=== PATIENT | male | born 1960 | race Caucasian/White ===

== ENCOUNTER 2018-06-08 16:09 | Inpatient (IN) ==
[2018-06-08 16:33] LABS: BASOPHILS # (AUTO) 0.1 X10^3/uL (0.0-0.1); BASOPHILS % (AUTO) 0.5 % (0.2-1.0); EOSINOPHILS % (AUTO) 0.1 % (0.9-2.9); HEMATOCRIT 47.9 % (42.0-54.0); HEMOGLOBIN 15.8 g/dL (13.5-18.0); LYMPHOCYTES # (AUTO) 1.7 X10^3/uL (1.3-2.9); LYMPHOCYTES % (AUTO) 7.7 % (21.0-51.0); MEAN CORPUSCULAR HEMOGLOBIN 28.9 pg (27.0-34.0); MEAN CORPUSCULAR VOLUME 87.5 fL (80.0-100.0); MEAN PLATELET VOLUME 8.6 fL (7.4-11.0); MONOCYTES # (AUTO) 1.4 x10^3/uL (0.3-0.8); MONOCYTES % (AUTO) 6.4 % (0.0-13.0); NEUTROPHILS # (AUTO) 18.7 x10^3/uL (2.2-4.8); NEUTROPHILS % (AUTO) 85.3 % (42.0-75.0); PLATELET COUNT 281 X10^3/uL (150.0-450.0); RED BLOOD COUNT 5.47 X10^6/uL (4.7-6.0); RED CELL DISTRIBUTION WIDTH 15.9 % (11.6-16.5); WHITE BLOOD COUNT 21.9 X10^3/uL (3.6-10.0)
[2018-06-08 16:44] LABS: PLATELET MORPHOLOGY COMMENT NORMAL (NORMAL)
[2018-06-08 16:50] LABS: ALANINE AMINOTRANSFERASE 19 Units/L (12-78); ALBUMIN 2.8 g/dL (3.4-5.0); ALKALINE PHOSPHATASE 85 Units/L (46-116); ASPARTATE AMINO TRANSFERASE 15 Units/L (15-37); BLOOD UREA NITROGEN 17 mg/dL (7-18); CALCIUM 8.7 mg/dL (8.5-10.1); CARBON DIOXIDE 38.7 mmol/L (21-32); CHLORIDE 95 mmol/L (98-107); COR CA(FOR HYPOALB) 9.7 mg/dL (8.5-10.1); COR NA(FOR HYPERGLY) 140 mmol/L (136-145); CREATININE 0.64 mg/dL (0.70-1.30); SODIUM 139 mmol/L (136-145); eGFR NON BLACK RACES > 60 (>60)
[2018-06-08 16:54] LABS: LACTIC ACID 1.6 mmol/L (0.4-2.0)
[2018-06-08] MEDS ORDERED: NS 1000 ML 1,000 ML IV SCH ×2 (17:00→21:00)
--- NOTE | 2018-06-08 17:26 | RAD ---
Portable chest Clinical indication: Low O2 saturation Comparison: 05/14/2018. Findings: Interstitial infiltrates are observed within the bilateral lung bases associated with coarsened interstitial lung markings and peribronchial thickening. The upper lung feliz remain clear. The lungs are hyperexpanded consistent with chronic emphysematous change. The heart size and mediastinal contours are normal. There is a chronic radiopaque foreign body projecting over the left lower lung field Impression: Bibasilar interstitial bronchopneumonia pattern. Radiographic follow-up recommended Emphysema. Reported By:
[2018-06-08] MEDS ORDERED: NS 1/2 1000 ML IV 1,000 ML IV ONE (18:15)
[2018-06-08] MEDS: ROCEPHIN VIAL 1 GRAM IVP SCH (18:26)
[2018-06-08] MEDS: NS 1/2 1000 ML IV 1,000 ML IV SCH (18:26)
--- NOTE | 2018-06-08 18:52 | DR.SOBA ---
HPI Time Seen Time Seen by Provider: 06/08/18 16:52 Primary Care Physician Primary Care Physician: nfd Complaints Chief Complaint Doctors Comments: Patient presents with daughter who states that patient has been weak for the past few months; although he lost his and this might account for this, he has shortness of breath for 3-4 days. He has dec reased energy. Chief Complaint:: family stated he has not eaten in 4 days and has been short of breath for the the last 2 days. family also stated he has been weak for the past several months. Source History Provided: Patient Mode of Arrival Mode of Arrival: Wheelchair Timing Onset of Chief Complaint: 06/05/18 PMH PMH Past Medical History: Yes Past Medical History: CHF, COPD, Coronary Artery Disease, Depression, GERD and G out Past Surgical History: Yes Surgical History: Ortho Surgery Family History History of Family Medical Conditions: No Social History Does patient currently use any type of tobacco product: Yes Have you used tobacco products in the last 12 months: Yes Type of Tobacco Use: Cigarettes How many years tobacco product used: 40 Does any household member use tobacco: No Alcohol Use: None Do you use any recreational Drugs:: No Lives With: Family Lives Where: Home infectious screening In the last 2 months have you had wt loss of >10#?: NO Have you had fever, night sweats or hemotysis?: No Have you traveled outside the country in the last 6 months?: No Isolation: Standard PE Vital Signs Vitals: Temperature 98.5 F Pulse Rate [Right Radial] 96 Pulse Rate 83 Respiratory Rate 22 Blood Pressure [Left Arm] 103/64 Blood Pressure [Right Arm] 114/70 Blood Pressure 114/69 O2 Sat by Pulse Oximetry 93 General Limitations: No Limitations General Appearance: Alert and In No Apparent Distress; negative In Distress Head Head Exam: Normal Inspection, Atraumatic and Normocephalic Eyes Eye exam: Normal Appearance, PERRL and EOMI ENT ENT Exam: Normal Exam and Normal Oropharynx Neck Neck Exam: Normal Inspection, Full ROM and Trachea Midline Chest Chest Inspection: Normal Inspection and Symmetric Chest Wall Rise Respiratory Respiratory Exam: Normal Lung Sounds Bilat and Accessory Muscle Use Respiratory Exam: Bilateral: Clear to Auscultation Cardiovascular Cardiovascular Exam: Regular Rate and Normal Rhythm Abdominal Exam Abdominal Exam: Normal Inspection, Normal Bowel Sounds and Soft Back Back Exam: Normal Inspection Neurologic Neurological Exam: Alert, Oriented X3 and CN II-XII Intact Psychiatric Psychiatric Exam: Normal Affect and Normal Mood Skin Skin Exam: Warm, Dry, Intact, Normal Color and Diaphoresis COURSE Consultation Called: 20:00 Consultation Comments: Per charge nurse ROR Labs Reviewed Laboratory Results Reviewed?: Yes Result Diagrams: 06/08/18 16:15 06/08/18 16:15 Laboratory: 06/08/18 18:51 Sputum - Expectorated Sputum - Final WBC 21.9 X10^3/uL (3.6-10.0) H 06/08/18 16:15 RBC 5.47 X10^6/uL (4.7-6.0) 06/08/18 16:15 Hgb 15.8 g/dL (13.5-18.0) 06/08/18 16:15 Hct 47.9 % (42.0-54.0) 06/08/18 16:15 MCV 87.5 fL (80.0-100.0) 06/08/18 16:15 MCH 28.9 pg (27.0-34.0) 06/08/18 16:15 MCHC 33.0 g/dL (33.0-35.0) 06/08/18 16:15 RDW 15.9 % (11.6-16.5) 06/08/18 16:15 Plt Count 281 X10^3/uL (150.0-450.0) 06/08/18 16:15 Plt Count Comment Adequate (ADEQUATE) 06/08/18 16:15 MPV 8.6 fL (7.4-11.0) 06/08/18 16:15 Neut % (Auto) 85.3 % (42.0-75.0) H 06/08/18 16:15 Lymph % (Auto) 7.7 % (21.0-51.0) L 06/08/18 16:15 [place] % (Auto) 6.4 % (0.0-13.0) 06/08/18 16:15 Eos % (Auto) 0.1 % (0.9-2.9) L 06/08/18 16:15 Baso % (Auto) 0.5 % (0.2-1.0) 06/08/18 16:15 Neut # (Auto) 18.7 x10^3/uL (2.2-4.8) H 06/08/18 16:15 Lymph # (Auto) 1.7 X10^3/uL (1.3-2.9) 06/08/18 16:15 [place] # (Auto) 1.4 x10^3/uL (0.3-0.8) H 06/08/18 16:15 Eos # (Auto) 0.0 x10^3/uL (0.0-0.2) 06/08/18 16:15 Baso # (Auto) 0.1 X10^3/uL (0.0-0.1) 06/08/18 16:15 Absolute Nucleated RBC 0.0 /100WBC 06/08/18 16:15 Total Counted 100 06/08/18 16:15 Neutrophils % (Manual) 91 % (39-76) H 06/08/18 16:15 Lymphocytes % (Manual) 6 % (13-43) L 06/08/18 16:15 Monocytes % (Manual) 3 % (4-9) L 06/08/18 16:15 Plt Morphology Comment Normal (NORMAL) 06/08/18 16:15 RBC Morphology Normal (NORMAL) 06/08/18 16:15 D-Dimer < 100 ng/mL (0-400) 06/08/18 16:15 Sample Site Rr 06/08/18 18:50 ABG pH 7.450 (7.35-7.45) 06/08/18 18:50 ABG pCO2 66.0 mmHg (35.0-45.0) H* 06/08/18 18:50 ABG pO2 45.0 mmHg (80.0-100.0) L* 06/08/18 18:50 ABG HCO3 45.9 mmol/L (22-26) H* 06/08/18 18:50 ABG O2 Saturation 83.0 % (90-100) L* 06/08/18 18:50 ABG Base Excess 18.5 mmol/L (-2.0-2.0) H 06/08/18 18:50 Alexei Test Pos 06/08/18 18:50 A-a Gradient 101.0 mmHg 06/08/18 18:50 FiO2 32.0 06/08/18 18:50 Blood Gas Comments Pt [facility] 06/08/18 18:50 Sodium 139 mmol/L (136-145) 06/08/18 16:15 Corrected Sodium 140 mmol/L (136-145) 06/08/18 16:15 Potassium 3.4 mmol/L (3.5-5.1) L 06/08/18 16:15 Chloride 95 mmol/L (98-107) L 06/08/18 16:15 Carbon Dioxide 38.7 mmol/L (21-32) H 06/08/18 16:15 BUN 17 mg/dL (7-18) 06/08/18 16:15 Creatinine 0.64 mg/dL (0.70-1.30) L 06/08/18 16:15 Est GFR (MDRD) Af Amer > 60 (>60) 06/08/18 16:15 Est GFR (MDRD) Non-Af > 60 (>60) 06/08/18 16:15 Glucose 139 mg/dL (65-99) H 06/08/18 16:15 Lactic Acid 1.6 mmol/L (0.4-2.0) 06/08/18 16:15 Calcium 8.7 mg/dL (8.5-10.1) 06/08/18 16:15 Corrected Calcium 9.7 mg/dL (8.5-10.1) 06/08/18 16:15 Total Bilirubin 0.80 mg/dL (0.2-1.0) 06/08/18 16:15 AST 15 Units/L (15-37) 06/08/18 16:15 ALT 19 Units/L (12-78) 06/08/18 16:15 Alkaline Phosphatase 85 Units/L (46-116) 06/08/18 16:15 Total Protein 7.0 g/dL (6.4-8.2) 06/08/18 16:15 Albumin 2.8 g/dL (3.4-5.0) L 06/08/18 16:15 Globulin 4.2 g/dL (2.5-4.5) 06/08/18 16:15 Albumin/Globulin Ratio 0.7 Ratio (1.1-2.1) L 06/08/18 16:15 XRAY XRAY Interpreted by: Radiologist XRAY Findings: Bibasilar interstitial bronchopneumonia pattern. Diagnosis Discharge Problem: Pneumonia Qualifiers: Pneumonia type: due to unspecified organism Laterality: bilateral Lung location: lower lobe of lung Qualified Code(s): J18.1 - Lobar pneumonia, unspecified organism ADDITIONAL NOTES Additional Notes Additional Notes: Patient admitted
[2018-06-08] MEDS ORDERED: LEVAQUIN PREMIX IV 750 MG 750 MG/150 ML BAG IV SCH (19:00)
[2018-06-08 19:11] LABS: ABG BASE EXCESS 18.5 mmol/L (-2.0-2.0)
[2018-06-08 19:12] LABS: ABG HCO3 45.9 mmol/L (22-26)
[2018-06-08 19:13] LABS: ABG ALLEN TEST POS
[2018-06-08] MEDS ORDERED: MILK OF MAGNESIA PO PRN (21:05)
[2018-06-08] MEDS ORDERED: PHENERGAN TAB 25 MG PO PRN (21:05)
[2018-06-08] MEDS ORDERED: ZOFRAN TAB 4 MG PO PRN (21:05)
[2018-06-08] MEDS ORDERED: PATIENT'S HOME MEDICATION (Budesonide-Formoterol 2 PUFF) IN SCH (21:05)
[2018-06-08] MEDS ORDERED: PROVENTIL NEB TX 0.083% 2.5MG/ 3ML IN PRN (21:05)
[2018-06-08] MEDS ORDERED: ZOFRAN INJ 4 MG VIAL IVP PRN (22:34)
[2018-06-08 22:38] VITALS: BMI 26.4
[2018-06-08] MEDS ORDERED: ZOFRAN INJ 4 MG VIAL ONE (22:40)
[2018-06-08] MEDS: BUSPAR PO SCH (22:43)
[2018-06-08] MEDS: NEURONTIN CAP 400 MG PO SCH (22:43)
[2018-06-08] MEDS: COREG TAB 25 MG PO SCH (22:43)
[2018-06-08] MEDS: ZANAFLEX PO SCH (22:44)
[2018-06-08] MEDS: LASIX PO SCH (22:44)
[2018-06-09] MEDS: DUONEB 0.5 MG/3 MG NEB SCH ×6 (00:54→21:04)
[2018-06-09] MEDS ORDERED: ULTRAM ONE (01:21)
[2018-06-09] MEDS: ULTRAM PO PRN (01:30)
[2018-06-09 05:23] LABS: BILIRUBIN,URINE NEGATIVE (NEGATIVE); BLOOD/HEMOGLOBIN,URINE NEGATIVE (NEGATIVE); GLUCOSE, URINE NEGATIVE (NEGATIVE); KETONES,URINE NEGATIVE (NEGATIVE); LEUKOCYTE ESTERASE ,URINE 1+ (NEGATIVE); NITRITES,URINE NEGATIVE (NEGATIVE); PROTEIN,URINE NEGATIVE (NEGATIVE); UROBILINOGEN,URINE 1+ (NORMAL)
[2018-06-09 05:28] LABS: BASOPHILS # (AUTO) 0.1 X10^3/uL (0.0-0.1); BASOPHILS % (AUTO) 0.5 % (0.2-1.0); EOSINOPHILS # (AUTO) 0.1 x10^3/uL (0.0-0.2); EOSINOPHILS % (AUTO) 0.6 % (0.9-2.9); HEMATOCRIT 39.8 % (42.0-54.0); LYMPHOCYTES # (AUTO) 2.4 X10^3/uL (1.3-2.9); LYMPHOCYTES % (AUTO) 15.5 % (21.0-51.0); MEAN CORPUSCULAR HEMOGLOBIN 29.2 pg (27.0-34.0); MEAN CORPUSCULAR HGB CONC 33.7 g/dL (33.0-35.0); MEAN CORPUSCULAR VOLUME 86.6 fL (80.0-100.0); MEAN PLATELET VOLUME 9.2 fL (7.4-11.0); MONOCYTES # (AUTO) 1.7 x10^3/uL (0.3-0.8); MONOCYTES % (AUTO) 11.1 % (0.0-13.0); NEUTROPHILS # (AUTO) 11.2 x10^3/uL (2.2-4.8); NEUTROPHILS % (AUTO) 72.3 % (42.0-75.0); PLATELET COUNT 216 X10^3/uL (150.0-450.0); RED CELL DISTRIBUTION WIDTH 15.2 % (11.6-16.5); WHITE BLOOD COUNT 15.4 X10^3/uL (3.6-10.0)
[2018-06-09 05:33] LABS: HEMOGLOBIN 13.4 g/dL (13.5-18.0)
[2018-06-09 05:39] LABS: ALANINE AMINOTRANSFERASE 12 Units/L (12-78); ALBUMIN 2.3 g/dL (3.4-5.0); ALKALINE PHOSPHATASE 71 Units/L (46-116); ASPARTATE AMINO TRANSFERASE 13 Units/L (15-37); BLOOD UREA NITROGEN 14 mg/dL (7-18); CARBON DIOXIDE 37.8 mmol/L (21-32); CHLORIDE 96 mmol/L (98-107); COR CA(FOR HYPOALB) 9.4 mg/dL (8.5-10.1); CREATININE 0.52 mg/dL (0.70-1.30); SODIUM 137 mmol/L (136-145); TOTAL PROTEIN 5.9 g/dL (6.4-8.2); eGFR NON BLACK RACES > 60 (>60)
[2018-06-09 05:54] LABS: APPEARANCE,URINE CLEAR (CLEAR); BACTERIA,URINE TRACE /HPF (NEGATIVE); COLOR,URINE YELLOW (YELLOW); RBC,URINE NONE SEEN /HPF (NONE SEEN); SQUAMOUS EPITHELIAL CELL,UR FEW /HPF (NEGATIVE)
[2018-06-09 05:55] LABS: AMORPHOUS SEDIMENT,UR TRACE /HPF (NEGATIVE)
--- NOTE | 2018-06-09 06:43 | RAD ---
History: Emphysema and low O2 Study: AP chest Comparison: Yesterday Findings: The heart size is prominent with a tortuous aorta. There is persistent increased interstitial bronchial markings in the right lower lobe. Overall the lungs are hyperinflated. There is no obvious pleural effusion. Impression: Persistent right lower lobe pneumonitis Reported By:
[2018-06-09] MEDS: BUSPAR PO SCH ×3 (06:59→21:06)
[2018-06-09] MEDS: NEURONTIN CAP 400 MG PO SCH ×3 (06:59→21:06)
[2018-06-09] MEDS: PULMICORT NEB TX 0.5 MG NEB SCH ×2 (08:36→21:04)
[2018-06-09] MEDS ORDERED: PATIENT'S HOME MEDICATION (Oxycodone-Acetaminophen [Percocet] 1 TAB) PO SCH (09:00)
[2018-06-09] MEDS: MILK OF MAGNESIA PO SCH ×3 (10:23→21:36)
[2018-06-09] MEDS: CARDIZEM CD 180 MG PO SCH (10:24)
[2018-06-09] MEDS: COREG TAB 25 MG PO SCH ×2 (10:24→23:50)
[2018-06-09] MEDS: ZANTAC PO SCH (10:24)
[2018-06-09] MEDS: DALIRESP PO SCH (10:24)
[2018-06-09] MEDS: ZANAFLEX PO SCH ×2 (10:24→21:06)
[2018-06-09] MEDS: LASIX PO SCH ×2 (10:24→23:50)
[2018-06-09] MEDS: ROCEPHIN VIAL 1 GRAM IVP SCH (10:26)
[2018-06-09] MEDS: CYMBALTA PO SCH (10:32)
[2018-06-09] MEDS: FORTAZ or TAZICEF VIAL INJ IVP SCH ×3 (10:33→21:06)
[2018-06-09] MEDS: LANOXIN PO SCH (11:16)
[2018-06-09] MEDS: PERCOCET TAB 5/325 MG PO SCH (11:18)
[2018-06-09] MEDS ORDERED: STERILE WATER IRRIGATION IR ONE ×2 (14:22→21:36)
[2018-06-09] MEDS ORDERED: LOVENOX INJ 40 MG SYR SC SCH (16:00)
[2018-06-09] MEDS: XARELTO PO SCH (16:55)
[2018-06-09] MEDS ORDERED: POTASSIUM CHL 60 MEQ/NS 0.45% 500 ML IV PRN (19:46)
[2018-06-09] MEDS ORDERED: POTASSIUM CHL 40 MEQ/NS 0.45% 500 ML IV PRN (19:46)
[2018-06-09] MEDS ORDERED: MICRO K EXTEN CAP 10 MEQ PO PRN (19:46)
[2018-06-09] MEDS ORDERED: K-RIDER 10 MEQ/NS 100 ML 10 MEQ/100 ML BAG IV PRN (19:46)
[2018-06-09] MEDS ORDERED: KLOR-CON PO PRN (19:46)
[2018-06-09] MEDS ORDERED: POTASSIUM CHLORIDE LIQ 20 MEQ UDC PO PRN (19:46)
[2018-06-09] MEDS: LEVAQUIN PREMIX IV 750 MG 750 MG/150 ML BAG IV SCH (21:04)
[2018-06-09] MEDS: COLACE CAP 100 MG PO SCH (21:05)
[2018-06-09] MEDS: NS 1/2 1000 ML IV 1,000 ML IV SCH (21:05)
[2018-06-09] MEDS: K-DUR TAB 20 MEQ PO PRN (21:31)
[2018-06-09] MEDS: MAGNESIUM SULFATE 1 GRAM/100 mL PREMIX 1 GM/100 ML BAG IV PRN ×2 (21:36→23:49)
[2018-06-10] MEDS: DUONEB 0.5 MG/3 MG NEB SCH ×6 (01:04→20:34)
[2018-06-10 05:18] LABS: BASOPHILS # (AUTO) 0.1 X10^3/uL (0.0-0.1); BASOPHILS % (AUTO) 0.9 % (0.2-1.0); EOSINOPHILS # (AUTO) 0.2 x10^3/uL (0.0-0.2); EOSINOPHILS % (AUTO) 1.7 % (0.9-2.9); HEMATOCRIT 38.5 % (42.0-54.0); HEMOGLOBIN 12.4 g/dL (13.5-18.0); LYMPHOCYTES # (AUTO) 2.7 X10^3/uL (1.3-2.9); LYMPHOCYTES % (AUTO) 25.3 % (21.0-51.0); MEAN CORPUSCULAR HEMOGLOBIN 28.5 pg (27.0-34.0); MEAN CORPUSCULAR HGB CONC 32.3 g/dL (33.0-35.0); MEAN CORPUSCULAR VOLUME 88.3 fL (80.0-100.0); MEAN PLATELET VOLUME 9.2 fL (7.4-11.0); MONOCYTES # (AUTO) 1.1 x10^3/uL (0.3-0.8); MONOCYTES % (AUTO) 10.3 % (0.0-13.0); NEUTROPHILS # (AUTO) 6.7 x10^3/uL (2.2-4.8); NEUTROPHILS % (AUTO) 61.8 % (42.0-75.0); PLATELET COUNT 209 X10^3/uL (150.0-450.0); RED BLOOD COUNT 4.36 X10^6/uL (4.7-6.0); RED CELL DISTRIBUTION WIDTH 16.3 % (11.6-16.5); WHITE BLOOD COUNT 10.9 X10^3/uL (3.6-10.0)
[2018-06-10] MEDS: BUSPAR PO SCH ×3 (05:21→21:23)
[2018-06-10] MEDS: FORTAZ or TAZICEF VIAL INJ IVP SCH ×3 (05:21→21:23)
[2018-06-10] MEDS: NEURONTIN CAP 400 MG PO SCH ×3 (05:21→21:23)
[2018-06-10 05:31] LABS: ALANINE AMINOTRANSFERASE 12 Units/L (12-78); ALBUMIN 2.1 g/dL (3.4-5.0); ALKALINE PHOSPHATASE 76 Units/L (46-116); ASPARTATE AMINO TRANSFERASE 10 Units/L (15-37); BLOOD UREA NITROGEN 14 mg/dL (7-18); CALCIUM 7.5 mg/dL (8.5-10.1); CARBON DIOXIDE 37.9 mmol/L (21-32); CHLORIDE 98 mmol/L (98-107); COR NA(FOR HYPERGLY) 140 mmol/L (136-145); CREATININE 0.53 mg/dL (0.70-1.30); MAGNESIUM 2.1 mg/dL (1.7-2.9); SODIUM 140 mmol/L (136-145); TOTAL PROTEIN 5.5 g/dL (6.4-8.2); eGFR NON BLACK RACES > 60 (>60)
[2018-06-10] MEDS: K-DUR TAB 20 MEQ PO PRN (05:50)
[2018-06-10 06:19] LABS: ABG BASE EXCESS 18.5 mmol/L (-2.0-2.0)
[2018-06-10 06:22] LABS: ABG HCO3 45.9 mmol/L (22-26)
--- NOTE | 2018-06-10 07:39 | RAD ---
HISTORY: Follow-up pneumonia Study: Chest AP portable Comparison: 06/09/2018, 06/08/2018 Findings: The heart is within normal limits in size. The marquis are normal. The lungs are well inflated. Right basilar lung infiltrate is unchanged. The remainder of the lung feliz are clear. The bony thorax is unremarkable. IMPRESSION: Persistent right basilar lung infiltrate, unchanged Reported By:
--- NOTE | 2018-06-10 08:50 | DR.SOBA ---
HPI Time Seen Time Seen by Provider: 06/08/18 16:52 Primary Care Physician Primary Care Physician: nfd Complaints Chief Complaint:: family stated he has not eaten in 4 days and has been short of breath for the the last 2 days. family also stated he has been weak for the past several months. Source History Provided: Patient Mode of Arrival Mode of Arrival: Wheelchair Timing Onset of Chief Complaint: 06/05/18 PMH PMH Past Medical History: Yes Past Medical History: CHF, COPD, Coronary Artery Disease, Depression, GERD and Gout Past Surgical History: Yes Surgical History: Ortho Surgery Family History History of Family Medical Conditions: No Social History Does patient currently use any type of tobacco product: Yes Have you used tobacco products in the last 12 months: Yes Type of Tobacco Use: Cigarettes How many years tobacco product used: 40 Does any household member use tobacco: No Alcohol Use: None Do you use any recreational Drugs:: No Lives With: Family Lives Where: Home infectious screening In the last 2 months have you had wt loss of >10#?: NO Have you had fever, night sweats or hemotysis?: No Have you traveled outside the country in the last 6 months?: No Isolation: Standard PE Vital Signs Vitals: Temperature 98.3 F Pulse Rate [Right Radial] 71 Pulse Rate 79 Respiratory Rate 24 Blood Pressure [Left Arm] 97/55 Blood Pressure [Right Arm] 114/70 Blood Pressure 114/69 O2 Sat by Pulse Oximetry 94 ROR Labs Reviewed Result Diagrams: 06/10/18 04:45 06/10/18 04:45 Laboratory: 06/08/18 18:23 Blood Blood Culture - Preliminary 06/08/18 16:15 Blood Blood Culture - Preliminary 06/08/18 18:51 Sputum - Expectorated Sputum Sputum Culture - Preliminary 06/08/18 18:51 Sputum - Expectorated Sputum - Final WBC 10.9 X10^3/uL (3.6-10.0) H 06/10/18 04:45 RBC 4.36 X10^6/uL (4.7-6.0) L 06/10/18 04:45 Hgb 12.4 g/dL (13.5-18.0) L 06/10/18 04:45 Hct 38.5 % (42.0-54.0) L 06/10/18 04:45 MCV 88.3 fL (80.0-100.0) 06/10/18 04:45 MCH 28.5 pg (27.0-34.0) 06/10/18 04:45 MCHC 32.3 g/dL (33.0-35.0) L 06/10/18 04:45 RDW 16.3 % (11.6-16.5) 06/10/18 04:45 Plt Count 209 X10^3/uL (150.0-450.0) 06/10/18 04:45 Plt Count Comment Adequate (ADEQUATE) 06/08/18 16:15 MPV 9.2 fL (7.4-11.0) 06/10/18 04:45 Neut % (Auto) 61.8 % (42.0-75.0) 06/10/18 04:45 Lymph % (Auto) 25.3 % (21.0-51.0) 06/10/18 04:45 [place] % (Auto) 10.3 % (0.0-13.0) 06/10/18 04:45 Eos % (Auto) 1.7 % (0.9-2.9) 06/10/18 04:45 Baso % (Auto) 0.9 % (0.2-1.0) 06/10/18 04:45 Neut # (Auto) 6.7 x10^3/uL (2.2-4.8) H 06/10/18 04:45 Lymph # (Auto) 2.7 X10^3/uL (1.3-2.9) 06/10/18 04:45 [place] # (Auto) 1.1 x10^3/uL (0.3-0.8) H 06/10/18 04:45 Eos # (Auto) 0.2 x10^3/uL (0.0-0.2) 06/10/18 04:45 Baso # (Auto) 0.1 X10^3/uL (0.0-0.1) 06/10/18 04:45 Absolute Nucleated RBC 0.0 /100WBC 06/10/18 04:45 Total Counted 100 06/08/18 16:15 Neutrophils % (Manual) 91 % (39-76) H 06/08/18 16:15 Lymphocytes % (Manual) 6 % (13-43) L 06/08/18 16:15 Monocytes % (Manual) 3 % (4-9) L 06/08/18 16:15 Plt Morphology Comment Normal (NORMAL) 06/08/18 16:15 RBC Morphology Normal (NORMAL) 06/08/18 16:15 D-Dimer < 100 ng/mL (0-400) 06/08/18 16:15 Sample Site Lbr 06/10/18 06:05 ABG pH 7.450 (7.35-7.45) 06/10/18 06:05 ABG pCO2 66.0 mmHg (35.0-45.0) H* 06/10/18 06:05 ABG pO2 54.0 mmHg (80.0-100.0) L 06/10/18 06:05 ABG HCO3 45.9 mmol/L (22-26) H* 06/10/18 06:05 ABG O2 Saturation 89.0 % (90-100) L 06/10/18 06:05 ABG Base Excess 18.5 mmol/L (-2.0-2.0) H 06/10/18 06:05 Alexei Test Na 06/10/18 06:05 A-a Gradient 92.0 mmHg 06/10/18 06:05 FiO2 32.0 06/10/18 06:05 Blood Gas Comments Sukhi abg well-mtf 06/10/18 06:05 Sodium 140 mmol/L (136-145) 06/10/18 04:45 Corrected Sodium 140 mmol/L (136-145) 06/10/18 04:45 Potassium 3.3 mmol/L (3.5-5.1) L 06/10/18 04:45 Chloride 98 mmol/L (98-107) 06/10/18 04:45 Carbon Dioxide 37.9 mmol/L (21-32) H 06/10/18 04:45 BUN 14 mg/dL (7-18) 06/10/18 04:45 Creatinine 0.53 mg/dL (0.70-1.30) L 06/10/18 04:45 Est GFR (MDRD) Af Amer > 60 (>60) 06/10/18 04:45 Est GFR (MDRD) Non-Af > 60 (>60) 06/10/18 04:45 Glucose 115 mg/dL (65-99) H 06/10/18 04:45 Lactic Acid 1.6 mmol/L (0.4-2.0) 06/08/18 16:15 Calcium 7.5 mg/dL (8.5-10.1) L 06/10/18 04:45 Corrected Calcium 9.0 mg/dL (8.5-10.1) 06/10/18 04:45 Magnesium 2.1 mg/dL (1.7-2.9) 06/10/18 04:45 Total Bilirubin 0.20 mg/dL (0.2-1.0) 06/10/18 04:45 AST 10 Units/L (15-37) L 06/10/18 04:45 ALT 12 Units/L (12-78) 06/10/18 04:45 Alkaline Phosphatase 76 Units/L (46-116) 06/10/18 04:45 Total Protein 5.5 g/dL (6.4-8.2) L 06/10/18 04:45 Albumin 2.1 g/dL (3.4-5.0) L 06/10/18 04:45 Globulin 3.4 g/dL (2.5-4.5) 06/10/18 04:45 Albumin/Globulin Ratio 0.6 Ratio (1.1-2.1) L 06/10/18 04:45 Specimen Type Clean catch urine 06/09/18 04:24 Urine Color Yellow (YELLOW) 06/09/18 04:24 Urine Appearance Clear (CLEAR) 06/09/18 04:24 Urine pH 5.0 (5.0 - 8.0) 06/09/18 04:24 Ur Specific [place] 1.005 (1.000-1.030) 06/09/18 04:24 Urine Protein Negative (NEGATIVE) 06/09/18 04:24 Urine Glucose (UA) Negative (NEGATIVE) 06/09/18 04:24 Urine Ketones Negative (NEGATIVE) 06/09/18 04:24 Urine Occult Blood Negative (NEGATIVE) 06/09/18 04:24 Urine Nitrite Negative (NEGATIVE) 06/09/18 04:24 Urine Bilirubin Negative (NEGATIVE) 06/09/18 04:24 Urine Urobilinogen 1+ (NORMAL) 06/09/18 04:24 Ur Leukocyte Esterase 1+ (NEGATIVE) 06/09/18 04:24 Urine RBC None seen /HPF (NONE SEEN) 06/09/18 04:24 Urine WBC 0-2 /HPF (NONE SEEN) 06/09/18 04:24 Ur Squamous Epith Cells Few /HPF (NEGATIVE) 06/09/18 04:24 Amorphous Sediment Trace /HPF (NEGATIVE) 06/09/18 04:24 Urine Bacteria Trace /HPF (NEGATIVE) 06/09/18 04:24 Ur Culture Indicated? No/not indicated 06/09/18 04:24 Diagnosis Discharge Problem: Pneumonia Qualifiers: Pneumonia type: due to unspecified organism Laterality: bilateral Lung location: lower lobe of lung Qualified Code(s): J18.1 - Lobar pneumonia, unspecified organism
[2018-06-10] MEDS: PULMICORT NEB TX 0.5 MG NEB SCH ×2 (09:03→20:34)
[2018-06-10] MEDS: MILK OF MAGNESIA PO SCH ×2 (09:09→20:37)
[2018-06-10] MEDS: PERCOCET TAB 5/325 MG PO SCH (09:10)
[2018-06-10] MEDS: ZANTAC PO SCH (09:11)
[2018-06-10] MEDS: LANOXIN PO SCH (09:11)
[2018-06-10] MEDS: LASIX PO SCH ×3 (09:12→21:24)
[2018-06-10] MEDS: ZANAFLEX PO SCH ×2 (09:12→20:38)
[2018-06-10] MEDS: CARDIZEM CD 180 MG PO SCH (09:12)
[2018-06-10] MEDS: COREG TAB 25 MG PO SCH ×2 (09:13→21:24)
[2018-06-10] MEDS: DALIRESP PO SCH (09:13)
[2018-06-10] MEDS: CYMBALTA PO SCH (09:17)
--- NOTE | 2018-06-10 10:03 | DR.H&P ---
H&P - History & Physical for Day of: H&P Date: 06/08/18 - Chief Complaint Chief Complaint: COUGH, SOB, WEAKNESS - History of Present Illness History of Present Illness: IS A 58 YEAR OLD WHITE MALE WHO PRESENTED TO THE ER WITH COMPLAINTS OF WEAKNESS, SHORTNESS OF BREATH, AND COUGH FOR THE PAST 3-4 DAYS. FAMILY REPORTS THAT HE HAS HAD A DECREASED APPETITE FOR THE PAST 4 DAYS. MEDICAL HISTORY INCLUDES CHF, COPD, CAD, DEPRESSION, GERD, GOUT. ON EXAMINATION, HE WAS NOTED WITH SCATTERED WHEEZING AND RHONCHI THROUGHOUT. ON ARRIVAL, VITALS WERE 100.0-87-16-82%RA-114/69. LABS WERE OBTAINED. ABNORMAL LAB VALUES INCLUDE THE FOLLOWING: WBC 21.9, POTASSIUM 3.4, CHLORIDE 95, CARBON DIOXIDE 38.7, CREATININE 0.64, GLUCOSE 139, ALBUMIN 2.8. ABG OBTAINED AND REVEALED PH 7.450, PC02 66.0, P02 45.0, HC03 45.9, 02 SATURATION 83.0, BASE EXCESS 18.5. BLOOD AND SPUTUM CULTURES WERE OBTAINED. A CHEST XRAY WAS OBTAINED AND REVEALED: Bibasilar interstitial bronchopneumonia pattern. Radiographic follow-up recommended. Emphysema. HE WAS ADMITTED TO THE HOSPITAL FOR FURTHER EVALUATION AND TREATMENT OF BIBASILAR PNEUMONIA. HE WAS STARTED ON ROCEPHIN 1GM IV DAILY, LEVAQUIN 750MG IV DAILY, RESPIRATORY TREATMENTS, SUPPLEMENTAL OXYGEN, AND POTASSIUM REPLACEMENT. WE PLAN TO FOLLOW UP WITH AM LABS AND CHEST XRAY AND CONTINUE TO MONITOR. - Past Medical History Past Medical History: Coronary Artery Disease, Depression, COPD, GERD, Gout, CHF - Past Surgical History Surgical History: Ortho Surgery - Social History Does patient currently use any type of tobacco product: Yes Have you used tobacco products in the last 12 months: Yes Type of Tobacco Use: Cigarettes How many years tobacco product used: 40 Does any household member use tobacco: No Alcohol Use: None Drug Use: None - Medications Home Medications: No Known Drug Allergies Allergy (Verified 05/14/18 22:53) CONTINUE taking the following medications diltiazem HCl 180 mg PO DAILY 06/09/18 [History] - Review of Systems Constitutional: Fever, Weakness, Other (DECREASED APPETITE ) Eyes: No Symptoms Reported ENT: No Symptoms Reported Respiratory: See HPI, Cough, Shortness of Breath, Sputum, Wheezing Cardiovascular: No Symptoms Reported Gastrointestinal: No Symptoms Reported Genitourinary: No Symptoms Reported Musculoskeletal: No Symptoms Reported Skin: No Symptoms Reported Neurological: Weakness - Physical Exam Vital Signs: Temperature 98.4 F Pulse Rate [Right Radial] 56 Pulse Rate 56 Respiratory Rate 20 Blood Pressure [Left Arm] 115/73 Blood Pressure [Right Arm] 114/70 Blood Pressure 114/69 O2 Sat by Pulse Oximetry 92 Oriented: Normal Eyes: Normal Ear: Normal Nose: Normal Throat: Normal Respiratory: Diminished Throughout, Rhonchi Throughout, Wheezes Throughout Cardiovascular: Normal. negative: S3, S4, Murmur : Normal Auscultation: Bowel Sounds: Normal Palpation: Normal Tenderness: Normal Skin: Normal Musculoskeletal: Normal Psychiatric: Normal Mood Description: Calm Affect: Normal Speech Pattern: Clear - Assessment/Plan (1) Pneumonia Qualifiers: Pneumonia type: due to unspecified organism Laterality: bilateral Lung location: lower lobe of lung Qualified Code(s): J18.1 - Lobar pneumonia, unspecified organism Status: Acute Plan: IV ANTIBIOTICS, RESPIRATORY TREATMENTS, SUPPLEMENTAL OXYGEN, CONTINUE TO MONITOR (2) COPD (chronic obstructive pulmonary disease) with emphysema Qualifiers: Emphysema type: unspecified Qualified Code(s): J43.9 - Emphysema, unspecified Status: Acute - Allergies Allergies/Adverse Reactions: Allergies Allergy/AdvReac Type Severity Reaction Status Date / Time No Known Drug Allergies Allergy Verified 05/14/18 22:53
--- NOTE | 2018-06-10 10:16 | PCM.PROG ---
Progress Note - Progress Note for Day of Date of Exam: 06/09/18 - Subjective Subjective: WAS ADMITTED FOR BRONCHOPNEUMONIA AND COPD EXACERBATION. TODAY, HE IS ALERT AND ORIENTED, LYING IN BED ON MORNING ROUNDS. HE CONTINUES WITH COUGH, SHORTNESS OF BREATH, AND WEAKNESS. BILATERAL LUNGS CONTINUE WITH SCATTERED WHEEZING AND RHONCHI. THERE IS AN UNSTABEABLE PRESSURE ULCER TO THE MID SACRAL AREA WITH YELLOW SLOUGH AND PURULENT DRAINAGE. HIS VITALS THIS MORNING ARE 97.8-83-20-83%NC-89/57. LABS WERE OBTAINED .ABNORMAL LAB VALUES INCLUDE THE FOLLOWING: WBC DECREASED TO 15.4, RBC 4.60, HGB 13.4, HCT 39.8, CHLORIDE 96, CARBON DIOXIDE 37.8, CREATININE 0.52, CALCIUM 8.0, AST 13, TOTAL PROTEIN 5.9, ALBUMIN 2.3. TODAYS CHEST XRAY REVEALED: Persistent right lower lobe pneumonitis. HE IS CURRENTLY RECEIVING IV ANTIBIOTICS, STEROIDS, RESPIRATORY TREATMENTS, AND SUPPLEMENTAL OXYGEN. TODAY, WE WILL DISCONTINUE THE ROCEPHIN AND START FORTAZ. WE WILL CONSULT FOR POSSIBLE DEBRIDEMENT OF WOUND. OTHERWISE, WE WILL FOLLOW UP WITH AM LABS AND CONTINUE TO MONITOR. - Past Medical Family Social History Past Med/Fam/Surg Hx: No changes since H&P Allergies: Allergies No Known Drug Allergies Allergy (Verified 05/14/18 22:53) - Review of Systems ROS: No change since H&P - Vital Signs and I&O's Vital Signs: Temperature 98.4 F Pulse Rate [Right Radial] 56 Pulse Rate 56 Respiratory Rate 20 Blood Pressure [Left Arm] 115/73 Blood Pressure [Right Arm] 114/70 Blood Pressure 114/69 O2 Sat by Pulse Oximetry 92 Intake and Output: Intake & Output 06/07/18 06/08/18 06/09/18 06/10/18 11:59 11:59 11:59 11:59 Intake Total 973 / 973 1421 / 1421 Output Total 685 / 685 1326 / 1326 Balance 288 / 288 95 / 95 - Physical Exam Oriented: Normal Eyes: Normal Ear: Normal Nose: Normal Throat: Normal Respiratory: Generalized, Wheezes, Rhonchi Cardiovascular: Normal. negative: S3, S4, Murmur : Normal Auscultation: Bowel Sounds: Normal Palpation: Normal Tenderness: Normal Skin: Normal Musculoskeletal: Normal Psychiatric: Normal Mood Description: Calm Affect: Normal Speech Pattern: Clear - Laboratory and Diagnostics Result Diagrams: 06/10/18 04:45 06/10/18 04:45 Labs: 06/08/18 23:35 Sacral Wound Culture - Preliminary 06/08/18 18:51 Sputum - Expectorated Sputum Sputum Culture - Final Enterobacter Aerogenes 06/08/18 18:51 Sputum - Expectorated Sputum - Final 06/08/18 18:23 Blood Blood Culture - Preliminary 06/08/18 16:15 Blood Blood Culture - Preliminary Laboratory WBC 10.9 X10^3/uL (3.6-10.0) H 06/10/18 04:45 RBC 4.36 X10^6/uL (4.7-6.0) L 06/10/18 04:45 Hgb 12.4 g/dL (13.5-18.0) L 06/10/18 04:45 Hct 38.5 % (42.0-54.0) L 06/10/18 04:45 MCV 88.3 fL (80.0-100.0) 06/10/18 04:45 MCH 28.5 pg (27.0-34.0) 06/10/18 04:45 MCHC 32.3 g/dL (33.0-35.0) L 06/10/18 04:45 RDW 16.3 % (11.6-16.5) 06/10/18 04:45 Plt Count 209 X10^3/uL (150.0-450.0) 06/10/18 04:45 Plt Count Comment Adequate (ADEQUATE) 06/08/18 16:15 MPV 9.2 fL (7.4-11.0) 06/10/18 04:45 Neut % (Auto) 61.8 % (42.0-75.0) 06/10/18 04:45 Lymph % (Auto) 25.3 % (21.0-51.0) 06/10/18 04:45 [place] % (Auto) 10.3 % (0.0-13.0) 06/10/18 04:45 Eos % (Auto) 1.7 % (0.9-2.9) 06/10/18 04:45 Baso % (Auto) 0.9 % (0.2-1.0) 06/10/18 04:45 Neut # (Auto) 6.7 x10^3/uL (2.2-4.8) H 06/10/18 04:45 Lymph # (Auto) 2.7 X10^3/uL (1.3-2.9) 06/10/18 04:45 [place] # (Auto) 1.1 x10^3/uL (0.3-0.8) H 06/10/18 04:45 Eos # (Auto) 0.2 x10^3/uL (0.0-0.2) 06/10/18 04:45 Baso # (Auto) 0.1 X10^3/uL (0.0-0.1) 06/10/18 04:45 Absolute Nucleated RBC 0.0 /100WBC 06/10/18 04:45 Total Counted 100 06/08/18 16:15 Neutrophils % (Manual) 91 % (39-76) H 06/08/18 16:15 Lymphocytes % (Manual) 6 % (13-43) L 06/08/18 16:15 Monocytes % (Manual) 3 % (4-9) L 06/08/18 16:15 Plt Morphology Comment Normal (NORMAL) 06/08/18 16:15 RBC Morphology Normal (NORMAL) 06/08/18 16:15 D-Dimer < 100 ng/mL (0-400) 06/08/18 16:15 Sample Site Lbr 06/10/18 06:05 ABG pH 7.450 (7.35-7.45) 06/10/18 06:05 ABG pCO2 66.0 mmHg (35.0-45.0) H* 06/10/18 06:05 ABG pO2 54.0 mmHg (80.0-100.0) L 06/10/18 06:05 ABG HCO3 45.9 mmol/L (22-26) H* 06/10/18 06:05 ABG O2 Saturation 89.0 % (90-100) L 06/10/18 06:05 ABG Base Excess 18.5 mmol/L (-2.0-2.0) H 06/10/18 06:05 Alexei Test Na 06/10/18 06:05 A-a Gradient 92.0 mmHg 06/10/18 06:05 FiO2 32.0 06/10/18 06:05 Blood Gas Comments Sukhi abg well-mtf 06/10/18 06:05 Sodium 140 mmol/L (136-145) 06/10/18 04:45 Corrected Sodium 140 mmol/L (136-145) 06/10/18 04:45 Potassium 3.3 mmol/L (3.5-5.1) L 06/10/18 04:45 Chloride 98 mmol/L (98-107) 06/10/18 04:45 Carbon Dioxide 37.9 mmol/L (21-32) H 06/10/18 04:45 BUN 14 mg/dL (7-18) 06/10/18 04:45 Creatinine 0.53 mg/dL (0.70-1.30) L 06/10/18 04:45 Est GFR (MDRD) Af Amer > 60 (>60) 06/10/18 04:45 Est GFR (MDRD) Non-Af > 60 (>60) 06/10/18 04:45 Glucose 115 mg/dL (65-99) H 06/10/18 04:45 Lactic Acid 1.6 mmol/L (0.4-2.0) 06/08/18 16:15 Calcium 7.5 mg/dL (8.5-10.1) L 06/10/18 04:45 Corrected Calcium 9.0 mg/dL (8.5-10.1) 06/10/18 04:45 Magnesium 2.1 mg/dL (1.7-2.9) 06/10/18 04:45 Total Bilirubin 0.20 mg/dL (0.2-1.0) 06/10/18 04:45 AST 10 Units/L (15-37) L 06/10/18 04:45 ALT 12 Units/L (12-78) 06/10/18 04:45 Alkaline Phosphatase 76 Units/L (46-116) 06/10/18 04:45 Total Protein 5.5 g/dL (6.4-8.2) L 06/10/18 04:45 Albumin 2.1 g/dL (3.4-5.0) L 06/10/18 04:45 Globulin 3.4 g/dL (2.5-4.5) 06/10/18 04:45 Albumin/Globulin Ratio 0.6 Ratio (1.1-2.1) L 06/10/18 04:45 Specimen Type Clean catch urine 06/09/18 04:24 Urine Color Yellow (YELLOW) 06/09/18 04:24 Urine Appearance Clear (CLEAR) 06/09/18 04:24 Urine pH 5.0 (5.0 - 8.0) 06/09/18 04:24 Ur Specific [place] 1.005 (1.000-1.030) 06/09/18 04:24 Urine Protein Negative (NEGATIVE) 06/09/18 04:24 Urine Glucose (UA) Negative (NEGATIVE) 06/09/18 04:24 Urine Ketones Negative (NEGATIVE) 06/09/18 04:24 Urine Occult Blood Negative (NEGATIVE) 06/09/18 04:24 Urine Nitrite Negative (NEGATIVE) 06/09/18 04:24 Urine Bilirubin Negative (NEGATIVE) 06/09/18 04:24 Urine Urobilinogen 1+ (NORMAL) 06/09/18 04:24 Ur Leukocyte Esterase 1+ (NEGATIVE) 06/09/18 04:24 Urine RBC None seen /HPF (NONE SEEN) 06/09/18 04:24 Urine WBC 0-2 /HPF (NONE SEEN) 06/09/18 04:24 Ur Squamous Epith Cells Few /HPF (NEGATIVE) 06/09/18 04:24 Amorphous Sediment Trace /HPF (NEGATIVE) 06/09/18 04:24 Urine Bacteria Trace /HPF (NEGATIVE) 06/09/18 04:24 Ur Culture Indicated? No/not indicated 06/09/18 04:24 - Plan (1) Pneumonia Status: Acute Qualifiers: Pneumonia type: due to unspecified organism Laterality: bilateral Lung location: lower lobe of lung Qualified Code(s): J18.1 - Lobar pneumonia, unspecified organism Plan: IV ANTIBIOTICS, RESPIRATORY TREATMENTS, SUPPLEMENTAL OXYGEN, CONTINUE TO MONITOR (2) COPD (chronic obstructive pulmonary disease) with emphysema Status: Acute Qualifiers: Emphysema type: unspecified Qualified Code(s): J43.9 - Emphysema, uns pecified
[2018-06-10] MEDS: THEO-DUR TAB 200 MG PO SCH ×2 (11:10→20:37)
[2018-06-10] MEDS: XARELTO PO SCH (17:11)
[2018-06-10] MEDS ORDERED: NS 1/2 1000 ML IV 1,000 ML IV ONE (19:33)
[2018-06-10] MEDS: COLACE CAP 100 MG PO SCH (20:36)
[2018-06-10] MEDS: NS 1/2 1000 ML IV 1,000 ML IV SCH (20:36)
[2018-06-10] MEDS: LEVAQUIN PREMIX IV 750 MG 750 MG/150 ML BAG IV SCH (20:37)
[2018-06-11] MEDS: DUONEB 0.5 MG/3 MG NEB SCH ×6 (01:24→23:42)
[2018-06-11] MEDS: ULTRAM PO PRN (04:35)
[2018-06-11] MEDS: BUSPAR PO SCH ×2 (05:06→13:15)
[2018-06-11] MEDS: FORTAZ or TAZICEF VIAL INJ IVP SCH ×3 (05:06→22:36)
[2018-06-11 05:24] LABS: BASOPHILS # (AUTO) 0.1 X10^3/uL (0.0-0.1); BASOPHILS % (AUTO) 0.9 % (0.2-1.0); EOSINOPHILS # (AUTO) 0.2 x10^3/uL (0.0-0.2); EOSINOPHILS % (AUTO) 1.8 % (0.9-2.9); HEMATOCRIT 39.6 % (42.0-54.0); HEMOGLOBIN 12.7 g/dL (13.5-18.0); LYMPHOCYTES # (AUTO) 3.3 X10^3/uL (1.3-2.9); LYMPHOCYTES % (AUTO) 31.3 % (21.0-51.0); MEAN CORPUSCULAR HEMOGLOBIN 28.5 pg (27.0-34.0); MEAN CORPUSCULAR HGB CONC 32.1 g/dL (33.0-35.0); MEAN CORPUSCULAR VOLUME 88.8 fL (80.0-100.0); MEAN PLATELET VOLUME 9.2 fL (7.4-11.0); MONOCYTES # (AUTO) 1.1 x10^3/uL (0.3-0.8); MONOCYTES % (AUTO) 10.3 % (0.0-13.0); NEUTROPHILS # (AUTO) 5.8 x10^3/uL (2.2-4.8); NEUTROPHILS % (AUTO) 55.7 % (42.0-75.0); PLATELET COUNT 253 X10^3/uL (150.0-450.0); RED BLOOD COUNT 4.46 X10^6/uL (4.7-6.0); WHITE BLOOD COUNT 10.5 X10^3/uL (3.6-10.0)
[2018-06-11 05:41] LABS: ALANINE AMINOTRANSFERASE 13 Units/L (12-78); ALBUMIN 2.3 g/dL (3.4-5.0); ALKALINE PHOSPHATASE 73 Units/L (46-116); ASPARTATE AMINO TRANSFERASE 14 Units/L (15-37); BLOOD UREA NITROGEN 8 mg/dL (7-18); CALCIUM 7.9 mg/dL (8.5-10.1); CHLORIDE 99 mmol/L (98-107); COR CA(FOR HYPOALB) 9.3 mg/dL (8.5-10.1); CREATININE 0.43 mg/dL (0.70-1.30); SODIUM 138 mmol/L (136-145); eGFR NON BLACK RACES > 60 (>60)
[2018-06-11] MEDS: NEURONTIN CAP 400 MG PO SCH ×2 (05:42→13:16)
--- NOTE | 2018-06-11 07:10 | RAD ---
HISTORY: Follow-up pneumonia Study: Chest AP portable Comparison: 06/10/2018 Findings: The heart is upper limits normal in size. No congestive heart failure is noted. The lungs are well inflated. Right basilar lung infiltrate is unchanged. The remainder of the lung feliz appear clear. The bony thorax is unremarkable. IMPRESSION: No change right basilar lung infiltrate Reported By:
[2018-06-11] MEDS: CARDIZEM CD 180 MG PO SCH (08:40)
[2018-06-11] MEDS: K-DUR TAB 20 MEQ PO PRN ×2 (08:40→13:16)
[2018-06-11] MEDS: ZANAFLEX PO SCH ×2 (08:40→21:07)
[2018-06-11] MEDS: LASIX PO SCH ×2 (08:41→21:07)
[2018-06-11] MEDS: THEO-DUR TAB 200 MG PO SCH ×2 (08:41→21:07)
[2018-06-11] MEDS: PERCOCET TAB 5/325 MG PO SCH (08:41)
[2018-06-11] MEDS: LANOXIN PO SCH (08:44)
[2018-06-11] MEDS: DALIRESP PO SCH (08:44)
[2018-06-11] MEDS: COREG TAB 25 MG PO SCH ×2 (08:45→21:07)
[2018-06-11] MEDS: MILK OF MAGNESIA PO SCH ×3 (08:45→22:36)
[2018-06-11] MEDS: ZANTAC PO SCH (08:52)
[2018-06-11] MEDS: CYMBALTA PO SCH (08:52)
[2018-06-11] MEDS: PULMICORT NEB TX 0.5 MG NEB SCH ×2 (09:03→23:42)
[2018-06-11] MEDS: KLONOPIN TAB 1 MG PO SCH ×2 (11:20→21:07)
[2018-06-11 14:44] LABS: ABG BASE EXCESS 12.5 mmol/L (-2.0-2.0)
[2018-06-11 14:45] LABS: ABG HCO3 38.4 mmol/L (22-26)
--- NOTE | 2018-06-11 15:00 | CT ---
HISTORY: Confusion Study: CT brain without contrast Comparison: 05/14/2018 Technique: Multiple axial images of the brain were obtained from the skull base to the vertex without administration of IV contrast. Findings: No acute intraparenchymal hemorrhage or mass can be identified. No extra-axial fluid collections are seen. No alteration in the attenuation of the brain parenchyma can be identified to suggest acute or subacute ischemic change. The ventricular system is symmetric and nondilated. The extracranial structures are grossly unremarkable. IMPRESSION: 1. No acute intracranial process can be identified. Reported By:
[2018-06-11] MEDS: HALDOL INJ IM PRN ×2 (15:53→21:09)
[2018-06-11] MEDS: XARELTO PO SCH (16:48)
--- NOTE | 2018-06-11 19:43 | PCM.PROG ---
Progress Note - Progress Note for Day of Date of Exam: 06/10/18 - Subjective Subjective: WAS ADMITTED FOR BRONCHOPNEUMONIA AND COPD EXACERBATION. TODAY, HE IS ALERT AND ORIENTED, LYING IN BED ON MORNING ROUNDS. HE CONTINUES WITH COUGH, SHORTNESS OF BREATH, AND WEAKNESS. BILATERAL LUNGS CONTINUE WITH SCATTERED WHEEZING AND RHONCHI. HIS VITALS THIS MORNING ARE 98.4-56-20-93%- 115/73. LABS WERE OBTAINED. ABNORMAL LAB VALUES INCLUDE THE FOLLOWING: WBC 10.9, RBC 4.36, HGB 12.4, HCT 38.5, POTASSIUM 3.3, CARBON DIOXIDE 37.9, CREATININE 0.53, GLUCOSE 115, CALCIUM 7.5, MAGNESIUM 1.6, AST 10, TOTAL PROTEIN 5.5, ALBUMIN 2.1. AN ABG WAS OBTAINED TODAY AND REVEALED: PH 7.450, PC02 66.0, P02 54.0, HC03 45.9, 02 SATURATION 89.0. TODAYS CHEST XRAY REVEALED: Persistent right basilar lung infiltrate, unchanged. HE IS CURRENTLY RECEIVING IV ANTIBIOTICS, STEROIDS, RESPIRATORY TREATMENTS, AND SUPPLEMENTAL OXYGEN. CONSULTED WITH PATIENT AND RECOMMENDED CONTINUED ANTIBIOITIC THERAPY AND WOUND CARE. WE WILL START MERLYN-DUR 200MG PO BID TODAY. OTHERWISE, WE WILL FOLLOW UP WITH AM LABS AND CONTINUE TO MONITOR. - Past Medical Family Social History Past Med/Fam/Surg Hx: No changes since H&P Allergies: Allergies No Known Drug Allergies Allergy (Verified 05/14/18 22:53) - Review of Systems ROS: No change since H&P - Vital Signs and I&O's Vital Signs: Temperature 98.4 F Pulse Rate [Left Brachial] 105 Pulse Rate [Right Radial] 67 Pulse Rate 118 Respiratory Rate 20 Blood Pressure [Left Arm] 123/85 Blood Pressure [Right Arm] 114/70 Blood Pressure 114/69 O2 Sat by Pulse Oximetry 87 Intake and Output: Intake & Output 06/09/18 06/10/18 06/11/18 06/12/18 11:59 11:59 11:59 11:59 Intake Total 973 / 973 1421 / 1421 2870 / 2870 580 / 580 Output Total 685 / 685 1326 / 1326 3600 / 3600 1500 / 1500 Balance 288 / 288 95 / 95 -730 / -730 -920 / -920 - Physical Exam Oriented: Normal Eyes: Normal Ear: Normal Nose: Normal Throat: Normal Respiratory: Generalized, Wheezes, Rhonchi Cardiovascular: Normal. negative: S3, S4, Murmur : Normal Auscultation: Bowel Sounds: Normal Tenderness: Normal Skin: Wound (SACRAL WOUND WITH DRAINAGE AND YELLOW SLOUGH) Musculoskeletal: Normal Psychiatric: Normal Mood Description: Calm Affect: Normal Speech Pattern: Clear, Appropriate - Laboratory and Diagnostics Result Diagrams: 06/11/18 04:34 06/11/18 10:56 Labs: 06/08/18 23:35 Sacral Wound Culture - Preliminary 06/08/18 18:51 Sputum - Expectorated Sputum Sputum Culture - Final Enterobacter Aerogenes 06/08/18 18:51 Sputum - Expectorated Sputum - Final 06/08/18 18:23 Blood Blood Culture - Preliminary 06/08/18 16:15 Blood Blood Culture - Preliminary Laboratory WBC 10.5 X10^3/uL (3.6-10.0) H 06/11/18 04:34 RBC 4.46 X10^6/uL (4.7-6.0) L 06/11/18 04:34 Hgb 12.7 g/dL (13.5-18.0) L 06/11/18 04:34 Hct 39.6 % (42.0-54.0) L 06/11/18 04:34 MCV 88.8 fL (80.0-100.0) 06/11/18 04:34 MCH 28.5 pg (27.0-34.0) 06/11/18 04:34 MCHC 32.1 g/dL (33.0-35.0) L 06/11/18 04:34 RDW 16.0 % (11.6-16.5) 06/11/18 04:34 Plt Count 253 X10^3/uL (150.0-450.0) 06/11/18 04:34 Plt Count Comment Adequate (ADEQUATE) 06/08/18 16:15 MPV 9.2 fL (7.4-11.0) 06/11/18 04:34 Neut % (Auto) 55.7 % (42.0-75.0) 06/11/18 04:34 Lymph % (Auto) 31.3 % (21.0-51.0) 06/11/18 04:34 [place] % (Auto) 10.3 % (0.0-13.0) 06/11/18 04:34 Eos % (Auto) 1.8 % (0.9-2.9) 06/11/18 04:34 Baso % (Auto) 0.9 % (0.2-1.0) 06/11/18 04:34 Neut # (Auto) 5.8 x10^3/uL (2.2-4.8) H 06/11/18 04:34 Lymph # (Auto) 3.3 X10^3/uL (1.3-2.9) H 06/11/18 04:34 [place] # (Auto) 1.1 x10^3/uL (0.3-0.8) H 06/11/18 04:34 Eos # (Auto) 0.2 x10^3/uL (0.0-0.2) 06/11/18 04:34 Baso # (Auto) 0.1 X10^3/uL (0.0-0.1) 06/11/18 04:34 Absolute Nucleated RBC 0.0 /100WBC 06/11/18 04:34 Total Counted 100 06/08/18 16:15 Neutrophils % (Manual) 91 % (39-76) H 06/08/18 16:15 Lymphocytes % (Manual) 6 % (13-43) L 06/08/18 16:15 Monocytes % (Manual) 3 % (4-9) L 06/08/18 16:15 Plt Morphology Comment Normal (NORMAL) 06/08/18 16:15 RBC Morphology Normal (NORMAL) 06/08/18 16:15 D-Dimer < 100 ng/mL (0-400) 06/08/18 16:15 Sample Site Rbr 06/11/18 14:29 ABG pH 7.460 (7.35-7.45) H 06/11/18 14:29 ABG pCO2 54.0 mmHg (35.0-45.0) H* 06/11/18 14:29 ABG pO2 55.0 mmHg (80.0-100.0) L 06/11/18 14:29 ABG HCO3 38.4 mmol/L (22-26) H* 06/11/18 14:29 ABG O2 Saturation 90.0 % (90-100) 06/11/18 14:29 ABG Base Excess 12.5 mmol/L (-2.0-2.0) H 06/11/18 14:29 Alexei Test N/a 06/11/18 14:29 A-a Gradient 27.0 mmHg 06/11/18 14:29 FiO2 21.0 06/11/18 14:29 Blood Gas Comments Pt starr well elj 06/11/18 14:29 Sodium 138 mmol/L (136-145) 06/11/18 04:34 Corrected Sodium TNP 06/11/18 04:34 Potassium 3.8 mmol/L (3.5-5.1) 06/11/18 10:56 Chloride 99 mmol/L (98-107) 06/11/18 04:34 Carbon Dioxide 38.0 mmol/L (21-32) H 06/11/18 04:34 BUN 8 mg/dL (7-18) 06/11/18 04:34 Creatinine 0.43 mg/dL (0.70-1.30) L 06/11/18 04:34 Est GFR (MDRD) Af Amer > 60 (>60) 06/11/18 04:34 Est GFR (MDRD) Non-Af > 60 (>60) 06/11/18 04:34 Glucose 89 mg/dL (65-99) 06/11/18 04:34 Lactic Acid 1.6 mmol/L (0.4-2.0) 06/08/18 16:15 Calcium 7.9 mg/dL (8.5-10.1) L 06/11/18 04:34 Corrected Calcium 9.3 mg/dL (8.5-10.1) 06/11/18 04:34 Magnesium 2.2 mg/dL (1.7-2.9) 06/11/18 04:34 Total Bilirubin 0.20 mg/dL (0.2-1.0) 06/11/18 04:34 AST 14 Units/L (15-37) L 06/11/18 04:34 ALT 13 Units/L (12-78) 06/11/18 04:34 Alkaline Phosphatase 73 Units/L (46-116) 06/11/18 04:34 Total Protein 6.0 g/dL (6.4-8.2) L 06/11/18 04:34 Albumin 2.3 g/dL (3.4-5.0) L 06/11/18 04:34 Globulin 3.7 g/dL (2.5-4.5) 06/11/18 04:34 Albumin/Globulin Ratio 0.6 Ratio (1.1-2.1) L 06/11/18 04:34 Specimen Type Clean catch urine 06/09/18 04:24 Urine Color Yellow (YELLOW) 06/09/18 04:24 Urine Appearance Clear (CLEAR) 06/09/18 04:24 Urine pH 5.0 (5.0 - 8.0) 06/09/18 04:24 Ur Specific [place] 1.005 (1.000-1.030) 06/09/18 04:24 Urine Protein Negative (NEGATIVE) 06/09/18 04:24 Urine Glucose (UA) Negative (NEGATIVE) 06/09/18 04:24 Urine Ketones Negative (NEGATIVE) 06/09/18 04:24 Urine Occult Blood Negative (NEGATIVE) 06/09/18 04:24 Urine Nitrite Negative (NEGATIVE) 06/09/18 04:24 Urine Bilirubin Negative (NEGATIVE) 06/09/18 04:24 Urine Urobilinogen 1+ (NORMAL) 06/09/18 04:24 Ur Leukocyte Esterase 1+ (NEGATIVE) 06/09/18 04:24 Urine RBC None seen /HPF (NONE SEEN) 06/09/18 04:24 Urine WBC 0-2 /HPF (NONE SEEN) 06/09/18 04:24 Ur Squamous Epith Cells Few /HPF (NEGATIVE) 06/09/18 04:24 Amorphous Sediment Trace /HPF (NEGATIVE) 06/09/18 04:24 Urine Bacteria Trace /HPF (NEGATIVE) 06/09/18 04:24 Ur Culture Indicated? No/not indicated 06/09/18 04:24 Digoxin 0.60 ng/mL (0.9-2) L 06/10/18 04:45 - Plan (1) Pneumonia Status: Acute Qualifiers: Pneumonia type: due to unspecified organism Laterality: bilateral Lung location: lower lobe of lung Qualified Code(s): J18.1 - Lobar pneumonia, unspecified organism Plan: IV ANTIBIOTICS, RESPIRATORY TREATMENTS, SUPPLEMENTAL OXYGEN, CONTINUE TO MONITOR (2) COPD (chronic obstructive pulmonary disease) with emphysema Status: Acute Qualifiers: Emphysema type: unspecified Qualified Code(s): J43.9 - Emphysema, unspecified Plan: MERLYN-DUR 200MG PO BID, RESPIRATORY TREATMENTS, SUPPLEMENTAL OXYGEN, CONTINUE TO MONITOR (3) Decubitus ulcer Status: Acute Qualifiers: Pressure injury location: sacral region Pressure injury stage: unstageable Qualified Code(s): L89.150 - Pressure ulcer of sacral region, unstageable Plan: WOUND CARE, IV ANTIBIOTIC THERAPY
[2018-06-11] MEDS: COLACE CAP 100 MG PO SCH (21:07)
[2018-06-11] MEDS: LEVAQUIN PREMIX IV 750 MG 750 MG/150 ML BAG IV SCH (22:36)
[2018-06-12] MEDS: DUONEB 0.5 MG/3 MG NEB SCH ×6 (00:44→20:31)
[2018-06-12] MEDS: FORTAZ or TAZICEF VIAL INJ IVP SCH ×3 (05:04→20:59)
[2018-06-12] MEDS: NS 1/2 1000 ML IV 1,000 ML IV SCH ×2 (05:04→21:03)
[2018-06-12 05:19] LABS: BASOPHILS # (AUTO) 0.1 X10^3/uL (0.0-0.1); BASOPHILS % (AUTO) 1.1 % (0.2-1.0); EOSINOPHILS # (AUTO) 0.1 x10^3/uL (0.0-0.2); EOSINOPHILS % (AUTO) 1.7 % (0.9-2.9); HEMATOCRIT 39.9 % (42.0-54.0); HEMOGLOBIN 13.2 g/dL (13.5-18.0); LYMPHOCYTES # (AUTO) 2.8 X10^3/uL (1.3-2.9); MEAN CORPUSCULAR HEMOGLOBIN 29.1 pg (27.0-34.0); MEAN CORPUSCULAR VOLUME 88.3 fL (80.0-100.0); MEAN PLATELET VOLUME 8.9 fL (7.4-11.0); MONOCYTES % (AUTO) 11.4 % (0.0-13.0); NEUTROPHILS # (AUTO) 4.6 x10^3/uL (2.2-4.8); NEUTROPHILS % (AUTO) 52.8 % (42.0-75.0); PLATELET COUNT 247 X10^3/uL (150.0-450.0); RED BLOOD COUNT 4.52 X10^6/uL (4.7-6.0); RED CELL DISTRIBUTION WIDTH 15.9 % (11.6-16.5); WHITE BLOOD COUNT 8.6 X10^3/uL (3.6-10.0)
[2018-06-12 05:36] LABS: ALANINE AMINOTRANSFERASE 14 Units/L (12-78); ALBUMIN 2.3 g/dL (3.4-5.0); ALKALINE PHOSPHATASE 64 Units/L (46-116); ASPARTATE AMINO TRANSFERASE 14 Units/L (15-37); BLOOD UREA NITROGEN 5 mg/dL (7-18); CALCIUM 8.6 mg/dL (8.5-10.1); CARBON DIOXIDE 34.9 mmol/L (21-32); CHLORIDE 101 mmol/L (98-107); CREATININE 0.44 mg/dL (0.70-1.30); SODIUM 140 mmol/L (136-145); TOTAL PROTEIN 5.8 g/dL (6.4-8.2); eGFR NON BLACK RACES > 60 (>60)
--- NOTE | 2018-06-12 06:47 | RAD ---
History: Shortness of breath Study: AP chest Comparison: Yesterday Findings: There is improvement in airspace disease at the right lung base. The heart size is normal with a tortuous aorta. The lungs are hyperinflated with chronic mild diffuse interstitial lung disease. Impression: 1. Improving right lower lobe pneumonia 2. COPD Reported By:
--- NOTE | 2018-06-12 08:28 | PCM.PROG ---
Progress Note - Progress Note for Day of Date of Exam: 06/11/18 - Subjective Subjective: WAS ADMITTED FOR BRONCHOPNEUMONIA AND COPD EXACERBATION. TODAY, HE IS ALERT AND ORIENTED, LYING IN BED ON MORNING ROUNDS. HE CONTINUES WITH COUGH, SHORTNESS OF BREATH, AND WEAKNESS, BUT REPORTS SLIGHT IMPROVEMENT SINCE YESTERDAY. STAFF REPORTS THAT HE HAS BEEN AGITATED AND CONFUSED AT TIMES. THEY REPORT THAT HE SEEMS ANGRY WITH THE STAFF. BILATERAL LUNGS CONTINUE WITH SCATTERED WHEEZING AND RHONCHI. HIS VITALS THIS MORNING ARE 98.1-67-20-92%RA-124/82. LABS WERE OBTAINED. ABNORMAL LAB VALUES INCLUDE THE FOLLOWING: WBC 10.5, RBC 4.46, HGB 12.7, HCT 39.6, CARBON DIOXIDE 38.0, CRE ATININE 0.43, CALCIUM 7.9, AST 14, TOTAL PROTEIN 6.0, ALBUMIN 2.3. AN ABG WAS OBTAINED TODAY AND REVEALED: PH 7.460, PC02 54.0, P02 55.0, HC03 38.4, 02 SATURATION 90.0. SPUTUM CULTURE REPORTS GROWTH OF ENTEROBACTER AEROGENES. IT IS SENSITIVE TO THE ANTIBIOTICS THAT HE IS CURRENTLY RECEIVING. TODAYS CHEST XRAY REVEALED: No change right basilar lung infiltrate. HE IS CURRENTLY RECEIVING IV ANTIBIOTICS, STEROIDS, RESPIRATORY TREATMENTS, AND SUPPLEMENTAL OXYGEN. TODAY, WE WILL OBTAIN A BRAIN CT AND START KLONIPIN 1MG PO BID PRN. OTHERWISE, WE WILL FOLLOW UP WITH AM LABS AND CONTINUE TO MONITOR. - Past Medical Family Social History Past Med/Fam/Surg Hx: No changes since H&P Allergies: Allergies No Known Drug Allergies Allergy (Verified 05/14/18 22:53) - Review of Systems ROS: No change since H&P - Vital Signs and I&O's Vital Signs: Temperature 97.6 F Pulse Rate [Left Brachial] 93 Pulse Rate [Right Radial] 67 Pulse Rate 118 Respiratory Rate 18 Blood Pressure [Left Arm] 129/76 Blood Pressure [Right Arm] 114/70 Blood Pressure 114/69 O2 Sat by Pulse Oximetry 95 Intake and Output: Intake & Output 06/09/18 06/10/18 06/11/18 06/12/18 11:59 11:59 11:59 11:59 Intake Total 973 / 973 1421 / 1421 2870 / 2870 1140 / 1140 Output Total 685 / 685 1326 / 1326 3600 / 3600 2300 / 2300 Balance 288 / 288 95 / 95 -730 / -730 -1160 / -1160 - Physical Exam Oriented: Normal Eyes: Normal Ear: Normal Nose: Normal Throat: Normal Respiratory: Generalized, Wheezes, Rhonchi Cardiovascular: Normal. negative: S3, S4, Murmur : Normal Auscultation: Bowel Sounds: Normal Palpation: Normal Tenderness: Normal Skin: Wound (SACRAL WOUND WITH DRAINAGE AND YELLOW SLOUGH) Musculoskeletal: Normal Psychiatric: Normal Mood Description: Calm Affect: Normal Speech Pattern: Clear, Appropriate - Laboratory and Diagnostics Result Diagrams: 06/12/18 04:35 06/12/18 04:35 Labs: 06/08/18 23:35 Sacral Wound Culture - Final 06/08/18 18:51 Sputum - Expectorated Sputum Sputum Culture - Final Enterobacter Aerogenes 06/08/18 18:51 Sputum - Expectorated Sputum - Final 06/08/18 18:23 Blood Blood Culture - Preliminary 06/08/18 16:15 Blood Blood Culture - Preliminary Laboratory WBC 8.6 X10^3/uL (3.6-10.0) 06/12/18 04:35 RBC 4.52 X10^6/uL (4.7-6.0) L 06/12/18 04:35 Hgb 13.2 g/dL (13.5-18.0) L 06/12/18 04:35 Hct 39.9 % (42.0-54.0) L 06/12/18 04:35 MCV 88.3 fL (80.0-100.0) 06/12/18 04:35 MCH 29.1 pg (27.0-34.0) 06/12/18 04:35 MCHC 33.0 g/dL (33.0-35.0) 06/12/18 04:35 RDW 15.9 % (11.6-16.5) 06/12/18 04:35 Plt Count 247 X10^3/uL (150.0-450.0) 06/12/18 04:35 Plt Count Comment Adequate (ADEQUATE) 06/08/18 16:15 MPV 8.9 fL (7.4-11.0) 06/12/18 04:35 Neut % (Auto) 52.8 % (42.0-75.0) 06/12/18 04:35 Lymph % (Auto) 33.0 % (21.0-51.0) 06/12/18 04:35 [place] % (Auto) 11.4 % (0.0-13.0) 06/12/18 04:35 Eos % (Auto) 1.7 % (0.9-2.9) 06/12/18 04:35 Baso % (Auto) 1.1 % (0.2-1.0) H 06/12/18 04:35 Neut # (Auto) 4.6 x10^3/uL (2.2-4.8) 06/12/18 04:35 Lymph # (Auto) 2.8 X10^3/uL (1.3-2.9) 06/12/18 04:35 [place] # (Auto) 1.0 x10^3/uL (0.3-0.8) H 06/12/18 04:35 Eos # (Auto) 0.1 x10^3/uL (0.0-0.2) 06/12/18 04:35 Baso # (Auto) 0.1 X10^3/uL (0.0-0.1) 06/12/18 04:35 Absolute Nucleated RBC 0.1 /100WBC 06/12/18 04:35 Total Counted 100 06/08/18 16:15 Neutrophils % (Manual) 91 % (39-76) H 06/08/18 16:15 Lymphocytes % (Manual) 6 % (13-43) L 06/08/18 16:15 Monocytes % (Manual) 3 % (4-9) L 06/08/18 16:15 Plt Morphology Comment Normal (NORMAL) 06/08/18 16:15 RBC Morphology Normal (NORMAL) 06/08/18 16:15 D-Dimer < 100 ng/mL (0-400) 06/08/18 16:15 Sample Site Rbr 06/11/18 14:29 ABG pH 7.460 (7.35-7.45) H 06/11/18 14:29 ABG pCO2 54.0 mmHg (35.0-45.0) H* 06/11/18 14:29 ABG pO2 55.0 mmHg (80.0-100.0) L 06/11/18 14:29 ABG HCO3 38.4 mmol/L (22-26) H* 06/11/18 14:29 ABG O2 Saturation 90.0 % (90-100) 06/11/18 14:29 ABG Base Excess 12.5 mmol/L (-2.0-2.0) H 06/11/18 14:29 Alexei Test N/a 06/11/18 14:29 A-a Gradient 27.0 mmHg 06/11/18 14:29 FiO2 21.0 06/11/18 14:29 Blood Gas Comments Pt starr well elj 06/11/18 14:29 Sodium 140 mmol/L (136-145) 06/12/18 04:35 Corrected Sodium TNP 06/12/18 04:35 Potassium 4.0 mmol/L (3.5-5.1) 06/12/18 04:35 Chloride 101 mmol/L (98-107) 06/12/18 04:35 Carbon Dioxide 34.9 mmol/L (21-32) H 06/12/18 04:35 BUN 5 mg/dL (7-18) L 06/12/18 04:35 Creatinine 0.44 mg/dL (0.70-1.30) L 06/12/18 04:35 Est GFR (MDRD) Af Amer > 60 (>60) 06/12/18 04:35 Est GFR (MDRD) Non-Af > 60 (>60) 06/12/18 04:35 Glucose 89 mg/dL (65-99) 06/12/18 04:35 Lactic Acid 1.6 mmol/L (0.4-2.0) 06/08/18 16:15 Calcium 8.6 mg/dL (8.5-10.1) 06/12/18 04:35 Corrected Calcium 10.0 mg/dL (8.5-10.1) 06/12/18 04:35 Magnesium 2.2 mg/dL (1.7-2.9) 06/11/18 04:34 Total Bilirubin 0.40 mg/dL (0.2-1.0) 06/12/18 04:35 AST 14 Units/L (15-37) L 06/12/18 04:35 ALT 14 Units/L (12-78) 06/12/18 04:35 Alkaline Phosphatase 64 Units/L (46-116) 06/12/18 04:35 Total Protein 5.8 g/dL (6.4-8.2) L 06/12/18 04:35 Albumin 2.3 g/dL (3.4-5.0) L 06/12/18 04:35 Globulin 3.5 g/dL (2.5-4.5) 06/12/18 04:35 Albumin/Globulin Ratio 0.7 Ratio (1.1-2.1) L 06/12/18 04:35 Specimen Type Clean catch urine 06/09/18 04:24 Urine Color Yellow (YELLOW) 06/09/18 04:24 Urine Appearance Clear (CLEAR) 06/09/18 04:24 Urine pH 5.0 (5.0 - 8.0) 06/09/18 04:24 Ur Specific [place] 1.005 (1.000-1.030) 06/09/18 04:24 Urine Protein Negative (NEGATIVE) 06/09/18 04:24 Urine Glucose (UA) Negative (NEGATIVE) 06/09/18 04:24 Urine Ketones Negative (NEGATIVE) 06/09/18 04:24 Urine Occult Blood Negative (NEGATIVE) 06/09/18 04:24 Urine Nitrite Negative (NEGATIVE) 06/09/18 04:24 Urine Bilirubin Negative (NEGATIVE) 06/09/18 04:24 Urine Urobilinogen 1+ (NORMAL) 06/09/18 04:24 Ur Leukocyte Esterase 1+ (NEGATIVE) 06/09/18 04:24 Urine RBC None seen /HPF (NONE SEEN) 06/09/18 04:24 Urine WBC 0-2 /HPF (NONE SEEN) 06/09/18 04:24 Ur Squamous Epith Cells Few /HPF (NEGATIVE) 06/09/18 04:24 Amorphous Sediment Trace /HPF (NEGATIVE) 06/09/18 04:24 Urine Bacteria Trace /HPF (NEGATIVE) 06/09/18 04:24 Ur Culture Indicated? No/not indicated 06/09/18 04:24 Digoxin 0.60 ng/mL (0.9-2) L 06/10/18 04:45 - Plan (1) Pneumonia Status: Acute Qualifiers: Pneumonia type: due to other aerobic Gram-negative bacteria Laterality: bi lateral Lung location: lower lobe of lung Qualified Code(s): J15.6 - Pneumonia due to other Gram-negative bacteria Plan: IV ANTIBIOTICS, RESPIRATORY TREATMENTS, SUPPLEMENTAL OXYGEN, CONTINUE TO MONITOR (2) COPD (chronic obstructive pulmonary disease) with emphysema Status: Acute Qualifiers: Emphysema type: unspecified Qualified Code(s): J43.9 - Emphysema, unspecified Plan: MERLYN-DUR 200MG PO BID, RESPIRATORY TREATMENTS, SUPPLEMENTAL OXYGEN, CONTINUE TO MONITOR (3) Decubitus ulcer Status: Acute Qualifiers: Pressure injury location: sacral region Pressure injury stage: unstageable Qualified Code(s): L89.150 - Pressure ulcer of sacral region, unstageable Plan: WOUND CARE, IV ANTIBIOTIC THERAPY (4) Altered mental status Status: Acute Qualifiers: Altered mental status type: transient alteration of awareness Qualified Code(s): R40.4 - Transient alteration of awareness Plan: OBTAIN BRAIN CT, KLONOPIN 1MG PO BID PRN, CONTINUE TO MONITOR
[2018-06-12] MEDS: PULMICORT NEB TX 0.5 MG NEB SCH ×2 (08:30→20:31)
[2018-06-12] MEDS: DALIRESP PO SCH (08:50)
[2018-06-12] MEDS: COREG TAB 25 MG PO SCH ×2 (08:50→21:00)
[2018-06-12] MEDS: LASIX PO SCH ×2 (08:50→21:01)
[2018-06-12] MEDS: ZANTAC PO SCH (08:50)
[2018-06-12] MEDS: THEO-DUR TAB 200 MG PO SCH ×2 (08:50→20:59)
[2018-06-12] MEDS: PERCOCET TAB 5/325 MG PO SCH ×2 (08:50→21:00)
[2018-06-12] MEDS: LANOXIN PO SCH (08:50)
[2018-06-12] MEDS: ZANAFLEX PO SCH ×2 (08:50→21:01)
[2018-06-12] MEDS: CARDIZEM CD 180 MG PO SCH (08:50)
[2018-06-12] MEDS: CYMBALTA PO SCH (08:50)
[2018-06-12] MEDS: MILK OF MAGNESIA PO SCH ×2 (11:56→21:03)
[2018-06-12] MEDS: XARELTO PO SCH (17:23)
[2018-06-12] MEDS: COLACE CAP 100 MG PO SCH (21:00)
[2018-06-12] MEDS: LEVAQUIN PREMIX IV 750 MG 750 MG/150 ML BAG IV SCH (21:02)
--- NOTE | 2018-06-12 21:47 | PCM.PROG ---
Progress Note - Progress Note for Day of Date of Exam: 06/12/18 - Subjective Subjective: WAS ADMITTED FOR BRONCHOPNEUMONIA AND COPD EXACERBATION. TODAY, HE IS ALERT AND ORIENTED, LYING IN BED ON MORNING ROUNDS. HE CONTINUES WITH COUGH, SHORTNESS OF BREATH, AND WEAKNESS, BUT REPORTS SLIGHT IMPROVEMENT SINCE YESTERDAY. STAFF REPORTS THAT HE HAS CONTINUED WITH CONFUSION AT TIMES. BILATERAL LUNGS CONTINUE WITH SCATTERED WHEEZING AND RHONCHI. HIS VITALS THIS MORNING ARE 97.8-102-20-98%-140/94. LABS WERE OBTAINED. ABNORMAL LAB VALUES INCLUDE THE FOLLOWING: RBC 4.52, HGB 13.2, HCT 39.9, CARBON DIOXIDE 34.9, BUN 5, CREATININE 0.44, AST 14, TOTAL PROTEIN 5.8, ALBUMIN 2.3. TODAYS CHEST XRAY REVEALED: Improving right lower lobe pneumonia. COPD. A BRAIN CT WAS OBTAINED AND REVEALED: No acute intracranial process can be identified. HE IS CURRENTLY RECEIVING IV ANTIBIOTICS, STEROIDS, RESPIRATORY TREATMENTS, AND SUPPLEMENTAL OXYGEN. TODAY, WE WILL START ZYPREXA 2.5MG PO BID. OTHERWISE, WE WILL FOLLOW UP WITH AM LABS AND CONTINUE TO MONITOR. - Past Medical Family Social History Past Med/Fam/Surg Hx: No changes since H&P Allergies: Allergies No Known Drug Allergies Allergy (Verified 05/14/18 22:53) - Review of Systems ROS: No change since H&P - Vital Signs and I&O's Vital Signs: Temperature 97.2 F Pulse Rate [Left Brachial] 92 Pulse Rate [Right Radial] 67 Pulse Rate 102 Respiratory Rate 18 Blood Pressure [Left Arm] 115/78 Blood Pressure [Right Arm] 114/70 Blood Pressure 114/69 O2 Sat by Pulse Oximetry 90 Intake and Output: Intake & Output 06/10/18 06/11/18 06/12/18 06/13/18 11:59 11:59 11:59 11:59 Intake Total 1421 / 1421 2870 / 2870 1140 / 1140 195 / 195 Output Total 1326 / 1326 3600 / 3600 2300 / 2300 1450 / 1450 Balance 95 / 95 -730 / -730 -1160 / -1160 -1255 / -1255 - Physical Exam Oriented: Normal Eyes: Normal Ear: Normal Nose: Normal Throat: Normal Respiratory: Generalized, Wheezes, Rhonchi Cardiovascular: Normal. negative: S3, S4, Murmur : Normal Auscultation: Bowel Sounds: Normal Tenderness: Normal Skin: Wound (SACRAL WOUND WITH DRAINAGE AND YELLOW SLOUGH) Musculoskeletal: Normal Psychiatric: Normal Mood Description: Calm Affect: Normal Speech Pattern: Clear, Appropriate - Laboratory and Diagnostics Result Diagrams: 06/12/18 04:35 06/12/18 04:35 Labs: 06/08/18 23:35 Sacral Wound Culture - Final 06/08/18 18:51 Sputum - Expectorated Sputum Sputum Culture - Final Enterobacter Aerogenes 06/08/18 18:51 Sputum - Expectorated Sputum - Final 06/08/18 18:23 Blood Blood Culture - Preliminary 06/08/18 16:15 Blood Blood Culture - Preliminary Laboratory WBC 8.6 X10^3/uL (3.6-10.0) 06/12/18 04:35 RBC 4.52 X10^6/uL (4.7-6.0) L 06/12/18 04:35 Hgb 13.2 g/dL (13.5-18.0) L 06/12/18 04:35 Hct 39.9 % (42.0-54.0) L 06/12/18 04:35 MCV 88.3 fL (80.0-100.0) 06/12/18 04:35 MCH 29.1 pg (27.0-34.0) 06/12/18 04:35 MCHC 33.0 g/dL (33.0-35.0) 06/12/18 04:35 RDW 15.9 % (11.6-16.5) 06/12/18 04:35 Plt Count 247 X10^3/uL (150.0-450.0) 06/12/18 04:35 Plt Count Comment Adequate (ADEQUATE) 06/08/18 16:15 MPV 8.9 fL (7.4-11.0) 06/12/18 04:35 Neut % (Auto) 52.8 % (42.0-75.0) 06/12/18 04:35 Lymph % (Auto) 33.0 % (21.0-51.0) 06/12/18 04:35 [place] % (Auto) 11.4 % (0.0-13.0) 06/12/18 04:35 Eos % (Auto) 1.7 % (0.9-2.9) 06/12/18 04:35 Baso % (Auto) 1.1 % (0.2-1.0) H 06/12/18 04:35 Neut # (Auto) 4.6 x10^3/uL (2.2-4.8) 06/12/18 04:35 Lymph # (Auto) 2.8 X10^3/uL (1.3-2.9) 06/12/18 04:35 [place] # (Auto) 1.0 x10^3/uL (0.3-0.8) H 06/12/18 04:35 Eos # (Auto) 0.1 x10^3/uL (0.0-0.2) 06/12/18 04:35 Baso # (Auto) 0.1 X10^3/uL (0.0-0.1) 06/12/18 04:35 Absolute Nucleated RBC 0.1 /100WBC 06/12/18 04:35 Total Counted 100 06/08/18 16:15 Neutrophils % (Manual) 91 % (39-76) H 06/08/18 16:15 Lymphocytes % (Manual) 6 % (13-43) L 06/08/18 16:15 Monocytes % (Manual) 3 % (4-9) L 06/08/18 16:15 Plt Morphology Comment Normal (NORMAL) 06/08/18 16:15 RBC Morphology Normal (NORMAL) 06/08/18 16:15 D-Dimer < 100 ng/mL (0-400) 06/08/18 16:15 Sample Site Rbr 06/11/18 14:29 ABG pH 7.460 (7.35-7.45) H 06/11/18 14:29 ABG pCO2 54.0 mmHg (35.0-45.0) H* 06/11/18 14:29 ABG pO2 55.0 mmHg (80.0-100.0) L 06/11/18 14:29 ABG HCO3 38.4 mmol/L (22-26) H* 06/11/18 14:29 ABG O2 Saturation 90.0 % (90-100) 06/11/18 14:29 ABG Base Excess 12.5 mmol/L (-2.0-2.0) H 06/11/18 14:29 Alexei Test N/a 06/11/18 14:29 A-a Gradient 27.0 mmHg 06/11/18 14:29 FiO2 21.0 06/11/18 14:29 Blood Gas Comments Pt starr well elj 06/11/18 14:29 Sodium 140 mmol/L (136-145) 06/12/18 04:35 Corrected Sodium TNP 06/12/18 04:35 Potassium 4.0 mmol/L (3.5-5.1) 06/12/18 04:35 Chloride 101 mmol/L (98-107) 06/12/18 04:35 Carbon Dioxide 34.9 mmol/L (21-32) H 06/12/18 04:35 BUN 5 mg/dL (7-18) L 06/12/18 04:35 Creatinine 0.44 mg/dL (0.70-1.30) L 06/12/18 04:35 Est GFR (MDRD) Af Amer > 60 (>60) 06/12/18 04:35 Est GFR (MDRD) Non-Af > 60 (>60) 06/12/18 04:35 Glucose 89 mg/dL (65-99) 06/12/18 04:35 Lactic Acid 1.6 mmol/L (0.4-2.0) 06/08/18 16:15 Calcium 8.6 mg/dL (8.5-10.1) 06/12/18 04:35 Corrected Calcium 10.0 mg/dL (8.5-10.1) 06/12/18 04:35 Magnesium 2.2 mg/dL (1.7-2.9) 06/11/18 04:34 Total Bilirubin 0.40 mg/dL (0.2-1.0) 06/12/18 04:35 AST 14 Units/L (15-37) L 06/12/18 04:35 ALT 14 Units/L (12-78) 06/12/18 04:35 Alkaline Phosphatase 64 Units/L (46-116) 06/12/18 04:35 Total Protein 5.8 g/dL (6.4-8.2) L 06/12/18 04:35 Albumin 2.3 g/dL (3.4-5.0) L 06/12/18 04:35 Globulin 3.5 g/dL (2.5-4.5) 06/12/18 04:35 Albumin/Globulin Ratio 0.7 Ratio (1.1-2.1) L 06/12/18 04:35 Specimen Type Clean catch urine 06/09/18 04:24 Urine Color Yellow (YELLOW) 06/09/18 04:24 Urine Appearance Clear (CLEAR) 06/09/18 04:24 Urine pH 5.0 (5.0 - 8.0) 06/09/18 04:24 Ur Specific [place] 1.005 (1.000-1.030) 06/09/18 04:24 Urine Protein Negative (NEGATIVE) 06/09/18 04:24 Urine Glucose (UA) Negative (NEGATIVE) 06/09/18 04:24 Urine Ketones Negative (NEGATIVE) 06/09/18 04:24 Urine Occult Blood Negative (NEGATIVE) 06/09/18 04:24 Urine Nitrite Negative (NEGATIVE) 06/09/18 04:24 Urine Bilirubin Negative (NEGATIVE) 06/09/18 04:24 Urine Urobilinogen 1+ (NORMAL) 06/09/18 04:24 Ur Leukocyte Esterase 1+ (NEGATIVE) 06/09/18 04:24 Urine RBC None seen /HPF (NONE SEEN) 06/09/18 04:24 Urine WBC 0-2 /HPF (NONE SEEN) 06/09/18 04:24 Ur Squamous Epith Cells Few /HPF (NEGATIVE) 06/09/18 04:24 Amorphous Sediment Trace /HPF (NEGATIVE) 06/09/18 04:24 Urine Bacteria Trace /HPF (NEGATIVE) 06/09/18 04:24 Ur Culture Indicated? No/not indicated 06/09/18 04:24 Digoxin 0.60 ng/mL (0.9-2) L 06/10/18 04:45 - Plan (1) Pneumonia Status: Acute Qualifiers: Pneumonia type: due to other aerobic Gram-negative bacteria Laterality: bilateral Lung location: lower lobe of lung Qualified Code(s): J15.6 - Pneumonia due to other Gram-negative bacteria Plan: IV ANTIBIOTICS, RESPIRATORY TREATMENTS, SUPPLEMENTAL OXYGEN, CONTINUE TO MONITOR (2) COPD (chronic obstructive pulmonary disease) with emphysema Status: Acute Qualifiers: Emphysema type: unspecified Qualified Code(s): J43.9 - Emphysema, unspecified Plan: MERLYN-DUR 200MG PO BID, RESPIRATORY TREATMENTS, SUPPLEMENTAL OXYGEN, CONTINUE TO MONITOR (3) Decubitus ulcer Status: Acute Qualifiers: Pressure injury location: sacral region Pressure injury stage: unstageable Qualified Code(s): L89.150 - Pressure ulcer of sacral region, unstageable Plan: WOUND CARE, IV ANTIBIOTIC THERAPY (4) Altered mental status Status: Acute Qualifiers: Altered mental status type: transient alteration of awareness Qualified Code(s): R40.4 - Transient alteration of awareness Plan: ZYPREXA 2.5MG PO BID, KLONOPIN 1MG PO BID PRN, CONTINUE TO MONITOR
[2018-06-13] MEDS: DUONEB 0.5 MG/3 MG NEB SCH ×3 (00:36→08:05)
[2018-06-13] MEDS: PERCOCET TAB 5/325 MG PO SCH ×2 (04:12→09:06)
[2018-06-13 05:12] LABS: BASOPHILS # (AUTO) 0.1 X10^3/uL (0.0-0.1); BASOPHILS % (AUTO) 0.9 % (0.2-1.0); EOSINOPHILS # (AUTO) 0.2 x10^3/uL (0.0-0.2); EOSINOPHILS % (AUTO) 1.6 % (0.9-2.9); HEMATOCRIT 40.7 % (42.0-54.0); HEMOGLOBIN 13.3 g/dL (13.5-18.0); LYMPHOCYTES # (AUTO) 4.1 X10^3/uL (1.3-2.9); LYMPHOCYTES % (AUTO) 35.8 % (21.0-51.0); MEAN CORPUSCULAR HEMOGLOBIN 28.4 pg (27.0-34.0); MEAN CORPUSCULAR HGB CONC 32.6 g/dL (33.0-35.0); MEAN PLATELET VOLUME 8.6 fL (7.4-11.0); MONOCYTES # (AUTO) 1.2 x10^3/uL (0.3-0.8); MONOCYTES % (AUTO) 10.3 % (0.0-13.0); NEUTROPHILS # (AUTO) 5.9 x10^3/uL (2.2-4.8); NEUTROPHILS % (AUTO) 51.4 % (42.0-75.0); PLATELET COUNT 285 X10^3/uL (150.0-450.0); RED BLOOD COUNT 4.68 X10^6/uL (4.7-6.0); RED CELL DISTRIBUTION WIDTH 15.7 % (11.6-16.5); WHITE BLOOD COUNT 11.6 X10^3/uL (3.6-10.0)
[2018-06-13 05:24] LABS: ALANINE AMINOTRANSFERASE 14 Units/L (12-78); ALBUMIN 2.6 g/dL (3.4-5.0); ALKALINE PHOSPHATASE 71 Units/L (46-116); ASPARTATE AMINO TRANSFERASE 18 Units/L (15-37); BLOOD UREA NITROGEN 4 mg/dL (7-18); CALCIUM 8.7 mg/dL (8.5-10.1); CARBON DIOXIDE 34.3 mmol/L (21-32); CHLORIDE 98 mmol/L (98-107); COR CA(FOR HYPOALB) 9.8 mg/dL (8.5-10.1); CREATININE 0.55 mg/dL (0.70-1.30); SODIUM 139 mmol/L (136-145); TOTAL PROTEIN 6.4 g/dL (6.4-8.2); eGFR NON BLACK RACES > 60 (>60)
[2018-06-13] MEDS: FORTAZ or TAZICEF VIAL INJ IVP SCH (05:58)
--- NOTE | 2018-06-13 06:29 | RAD ---
History: Shortness of breath Study: AP chest Comparison: Yesterday Findings: The heart size is normal. The lungs remain hyperinflated. The lungs are now grossly clear. There is no edema or effusion. Impression: COPD, no definite evidence for acute disease at this time. Reported By:
[2018-06-13] MEDS: PULMICORT NEB TX 0.5 MG NEB SCH (08:06)
[2018-06-13] MEDS: CYMBALTA PO SCH (08:45)
[2018-06-13] MEDS: COREG TAB 25 MG PO SCH (08:45)
[2018-06-13] MEDS: LASIX PO SCH (08:45)
[2018-06-13] MEDS: LANOXIN PO SCH (08:45)
[2018-06-13] MEDS: THEO-DUR TAB 200 MG PO SCH (08:45)
[2018-06-13] MEDS: DALIRESP PO SCH (08:45)
[2018-06-13] MEDS: ZANTAC PO SCH (08:45)
[2018-06-13] MEDS: ZANAFLEX PO SCH (08:45)
[2018-06-13] MEDS: CARDIZEM CD 180 MG PO SCH (08:45)
[2018-06-13] MEDS: MILK OF MAGNESIA PO SCH (09:06)
[2018-06-13 09:10] VITALS: BP 152/92
--- NOTE | 2018-06-30 01:48 | DR.CARTERD ---
- Discharge Summary for: Discharge Summary for Date of:: 06/13/18 - Admission Date Date of Admission: 06/08/18 - Admission Diagnoses Admission Diagnosis: (1) Pneumonia (2) COPD (chronic obstructive pulmonary disease) with emphysema - Discharge Date Discharge Date: 06/13/18 - Discharge Diagnoses Discharge Diagnosis: (1) Pneumonia (2) COPD (chronic obstructive pulmonary disease) with emphysema (3) Decubitus ulcer (4) Altered mental status - Hospital Course Hospital Course: DAY ONE, MR. QUACH IS A 58 YEAR OLD WHITE MALE WHO PRESENTED TO THE ER WITH COMPLAINTS OF WEAKNESS, SHORTNESS OF BREATH, AND COUGH FOR THE PAST 3-4 DAYS. FAMILY REPORTED THAT HE HAS HAD A DECREASED APPETITE FOR THE PAST 4 DAYS. MEDICAL HISTORY INCLUDES CHF, COPD, CAD, DEPRESSION, GERD, GOUT. ON EXAMINATION, HE WAS NOTED WITH SCATTERED WHEEZING AND RHONCHI THROUGHOUT. ON ARRIVAL, VITALS WERE 100.0-87-16-82%RA-114/69. LABS WERE OBTAINED. ABNORMAL LAB VALUES INCLUDED THE FOLLOWING: WBC 21.9, POTASSIUM 3.4, CHLORIDE 95, CARBON DIOXIDE 38.7, CREATININE 0.64, GLUCOSE 139, ALBUMIN 2.8. ABG OBTAINED AND REVEALED PH 7.450, PC02 66.0, P02 45.0, HC03 45.9, 02 SATURATION 83.0, BASE EXCESS 18.5. BLOOD AND SPUTUM CULTURES WERE OBTAINED. A CHEST XRAY WAS OBTAINED AND REVEALED: Bibasilar interstitial bronchopneumonia pattern. Radiographic follow-up recommended. Emphysema. HE WAS ADMITTED TO THE HOSPITAL FOR FURTHER EVALUATION AND TREATMENT OF BIBASILAR PNEUMONIA. HE WAS STARTED ON ROCEPHIN 1GM IV DAILY, LEVAQUIN 750MG IV DAILY, RESPIRATORY TREATMENTS, SUPPLEMENTAL OXYGEN, AND POTASSIUM REPLACEMENT. WE FOLLOWED UP WITH AM LABS AND CHEST XRAY AND CONTINUED TO MONITOR. DAY TWO, HE WAS ALERT AND ORIENTED, LYING IN BED ON MORNING ROUNDS. HE CONTINUED WITH COUGH, SHORTNESS OF BREATH, AND WEAKNESS. BILATERAL LUNGS CONTINUED WITH SCATTERED WHEEZING AND RHONCHI. THERE WAS AN UNSTAGEABLE PRESSURE ULCER TO THE MID SACRAL AREA WITH YELLOW SLOUGH AND PURULENT DRAINAGE. HIS VITALS THIS MORNING WERE 97.8-83-20-83%NC-89/57. LABS WERE OBTAINED .ABNORMAL LAB VALUES INCLUDED THE FOLLOWING: WBC DECREASED TO 15.4, RBC 4.60, HGB 13.4, HCT 39.8, CHLORIDE 96, CARBON DIOXIDE 37.8, CREATININE 0.52, CALCIUM 8.0, AST 13, TOTAL PROTEIN 5.9, ALBUMIN 2.3. TODAYS CHEST XRAY REVEALED: Persistent right lower lobe pneumonitis. HE WAS RECEIVING IV ANTIBIOTICS, STEROIDS, RESPIRATORY TREATMENTS, AND SUPPLEMENTAL OXYGEN. WE DISCONTINUED THE ROCEPHIN AND STARTED FORTAZ. WE CONSULTED DR. KEENE FOR POSSIBLE DEBRIDEMENT OF WOUND. WE FOLLOWED UP WITH AM LABS AND CONTINUED TO MONITOR. DAY THREE, HE WAS ALERT AND ORIENTED, LYING IN BED ON MORNING ROUNDS. HE CONTINUED WITH COUGH, SHORTNESS OF BREATH, AND WEAKNESS. BILATERAL LUNGS CONTINUED WITH SCATTERED WHEEZING AND RHONCHI. HIS VITALS THIS MORNING WERE 98.4-56-20-93%-115/73. LABS WERE OBTAINED. ABNORMAL LAB VALUES INCLUDED THE FOLLOWING: WBC 10.9, RBC 4.36, HGB 12.4, HCT 38.5, POTASSIUM 3.3, CARBON DIOXIDE 37.9, CREATININE 0.53, GLUCOSE 115, CALCIUM 7.5, MAGNESIUM 1.6, AST 10, TOTAL PROTEIN 5.5, ALBUMIN 2.1. AN ABG WAS OBTAINED TODAY AND REVEALED: PH 7.450, PC02 66.0, P02 54.0, HC03 45.9, 02 SATURATION 89.0. TODAYS CHEST XRAY REVEALED: Persistent right basilar lung infiltrate, unchanged. HE WAS RECEIVING IV ANTIBIOTICS, STEROIDS, RESPIRATORY TREATMENTS, AND SUPPLEMENTAL OXYGEN. CONSULTED WITH PATIENT AND RECOMMENDED CONTINUED ANTIBIOITIC THERAPY AND WOUND CARE. WE STARTED MERLYN-DUR 200MG PO BID TODAY. WE FOLLOWED UP WITH AM LABS AND CONTINUED TO MONITOR. DAY FOUR, HE WAS ALERT AND ORIENTED, LYING IN BED ON MORNING ROUNDS. HE CONTINUED WITH COUGH, SHORTNESS OF BREATH, AND WEAKNESS, BUT REPORTED SLIGHT IMPROVEMENT SINCE YESTERDAY. STAFF REPORTED THAT HE HAS BEEN AGITATED AND CONFUSED AT TIMES. THEY REPORTED THAT HE SEEMED ANGRY WITH THE STAFF. BILATERAL LUNGS CONTINUED WITH SCATTERED WHEEZING AND RHONCHI. HIS VITALS THIS MORNING WERE 98.1-67-20-92%RA-124/82. LABS WERE OBTAINED. ABNORMAL LAB VALUES INCLUDED THE FOLLOWING: WBC 10.5, RBC 4.46, HGB 12.7, HCT 39.6, CARBON DIOXIDE 38.0, CREATININE 0.43, CALCIUM 7.9, AST 14, TOTAL PROTEIN 6.0, ALBUMIN 2.3. AN ABG WAS OBTAINED TODAY AND REVEALED: PH 7.460, PC02 54.0, P02 55.0, HC03 38.4, 02 SATURATION 90.0. SPUTUM CULTURE REPORTS GROWTH OF ENTEROBACTER AEROGENES. IT IS SENSITIVE TO THE ANTIBIOTICS THAT HE WAS RECEIVING. TODAYS CHEST XRAY REVEALED: No change right basilar lung infiltrate. HE WAS RECEIVING IV ANTIBIOTICS, STEROIDS, RESPIRATORY TREATMENTS, AND SUPPLEMENTAL OXYGEN. WE OBTAINED A BRAIN CT AND STARTED KLONIPIN 1MG PO BID PRN. WE FOLLOWED UP WITH AM LABS AND CONTINUED TO MONITOR. DAY FIVE, HE WAS ALERT AND ORIENTED, LYING IN BED ON MORNING ROUNDS. HE CONTINUED WITH COUGH, SHORTNESS OF BREATH, AND WEAKNESS, BUT REPORTED SLIGHT IMPROVEMENT SINCE YESTERDAY. STAFF REPORTED THAT HE HAS CONTINUED WITH CONFUSION AT TIMES. BILATERAL LUNGS CONTINUED WITH SCATTERED WHEEZING AND RHONCHI. HIS VITALS THIS MORNING WERE 97.8-102-20-98%-140/94. LABS WERE OBTAINED. ABNORMAL LAB VALUES INCLUDED THE FOLLOWING: RBC 4.52, HGB 13.2, HCT 39.9, CARBON DIOXIDE 34.9, BUN 5, CREATININE 0.44, AST 14, TOTAL PROTEIN 5.8, ALBUMIN 2.3. TODAYS CHEST XRAY REVEALED: Improving right lower lobe pneumonia. COPD. A BRAIN CT WAS OBTAINED AND REVEALED: No acute intracranial process can be identified. HE WAS RECEIVING IV ANTIBIOTICS, STEROIDS, RESPIRATORY TREATMENTS, AND SUPPLEMENTAL OXYGEN. TODAY, WE STARTED ZYPREXA 2.5MG PO BID. WE FOLLOWED UP WITH AM LABS AND CONTINUED TO MONITOR. DAY SIX, PATIENT LYING IN BED ALERT AND ORIENTED ON MORNING ROUNDS. PATIENT REPORTED SYMPTOMS WERE CONTINUING TO IMPROVE AND HE WAS FEELNG BETTER. WHEEZES WERE NOTED BILATERALLY ON AUSCULTATION. LABS WERE IN NORMAL RANGE FOR PATIENT. VITALS WERE STABLE. WE PLANNED FOR DISCHARGE. INSTRUCTIONS FOR MEDICATIONS AND FOLLOW UP WERE DISCUSSED WITH PATIENT AND FAMILY, BOTH VOICED UNDERSTANDING. PATIENT WAS DISCHARGED HOME IN STABLE CONDITION WITH FAMILY. - Discharge Medications Discharge Medications: Home Medication List diltiazem HCl 180 mg PO DAILY 06/09/18 [History] duloxetine 60 mg PO BID 06/10/18 [History] ergocalciferol (vitamin D2) [Vitamin D2] 1 tab PO WEEKLY 06/10/18 [History] fentanyl 50 mcg TRANSDERMAL Q72H 06/10/18 [History] trazodone 1 - 3 tab PO HS 06/10/18 [History] warfarin [Coumadin] 5 mg PO DAILY 06/10/18 [History] ciprofloxacin HCl [Cipro] 500 mg PO BID #20 tab 06/13/18 [Rx] ipratropium-albuterol 1 neb NEB TID #90 each 06/13/18 [Rx] olanzapine [Zyprexa] 2.5 mg PO QDAY #60 tab 06/13/18 [Rx] Prescriptions: ciprofloxacin HCl [Cipro] Jose M Polanco ipratropium-albuterol Jose M Polanco olanzapine [Zyprexa] Jose M Polanco Ambulatory Orders albuterol sulfate [Proventil HFA] 2 puff INHALATION Q4H PRN 05/14/18 budesonide-formoterol [Symbicort] 2 puff INHALATION BID 05/14/18 buspirone 10 mg PO TID 05/14/18 carvedilol [Coreg] 25 mg PO BID 05/14/18 digoxin 250 mcg PO DAILY 05/14/18 duloxetine [Cymbalta] 60 mg PO BID 05/14/18 furosemide [Lasix] 40 mg PO BID 05/14/18 omeprazole magnesium [Prilosec] 40 mg PO QDAY 05/14/18 ondansetron HCl [Zofran] 8 mg PO TID PRN 05/14/18 oxycodone-acetaminophen [Percocet] 1 tab PO DAILY PRN 05/14/18 promethazine 12.5 mg PO Q8H PRN 05/14/18 ranitidine HCl [Zantac] 300 mg PO DAILY 05/14/18 rivaroxaban [Xarelto] 20 mg PO DAILY 05/14/18 roflumilast [Daliresp] 500 mcg PO QDAY 05/14/18 tizanidine [Zanaflex] 4 mg PO TID PRN 05/14/18 - Discharge Disposition Discharge Disposition: PATIENT TO FOLLOW UP IN OUR OFFICE IN ONE WEEK.
== END 2018-06-13 09:40 | disposition home or self-care (01) | DRG 178 ==
LOC: ER 16:09 → MED/SURG 20:02
PROVIDERS: ADMIT Internal Medicine; ATTEND Internal Medicine
DX: R26.89 Other abnormalities of gait and mobility; R13.11 Dysphagia, oral phase; R06.02 Shortness of breath; L89.150 Pressure ulcer of sacral region, unstageable; I25.10 Atherosclerotic heart disease of native coronary artery without angina pectoris; J44.1 Chronic obstructive pulmonary disease with (acute) exacerbation; F32.89 Other specified depressive episodes; K21.9 Gastro-esophageal reflux disease without esophagitis; R40.4 Transient alteration of awareness; J15.6 Pneumonia due to other Gram-negative bacteria; R53.1 Weakness; R63.0 Anorexia
CPT/HCPCS: 36415; 36600; 70450; 71010; 71045; 80053; 80162; 81001; 82803; 83605; 83735; 84132; 85025; 85378; 87040; 87070; 87075; 87077; 87186; 87205; 92526; 92610; 94640; 94669; 94760; 96365; 96367; 96374; 96375; 97110; 97116; 97162; 97166; 97530; 97535; 99283; 99284; A4222; Q0169; J0696; J0713; J1630; J1956; J2405; J3475; J7620; J7626; S0181

== ENCOUNTER 2018-11-24 18:55 | Inpatient (IN) ==
[2018-11-24] MEDS ORDERED: NARCAN INJ IVP ONE (18:57)
[2018-11-24] MEDS ORDERED: NARCAN INJ ONE (18:57)
[2018-11-24 19:11] LABS: ABG BASE EXCESS 11.6 mmol/L (-2.0-2.0)
[2018-11-24 19:12] LABS: ABG HCO3 43.4 mmol/L (22-26)
[2018-11-24 19:34] LABS: BILIRUBIN,URINE 1+ (NEGATIVE); BLOOD/HEMOGLOBIN,URINE 4+ (NEGATIVE); GLUCOSE, URINE NEGATIVE (NEGATIVE); KETONES,URINE 1+ (NEGATIVE); LEUKOCYTE ESTERASE ,URINE 1+ (NEGATIVE); NITRITES,URINE NEGATIVE (NEGATIVE); PROTEIN,URINE 3+ (NEGATIVE); UROBILINOGEN,URINE 2+ (NORMAL)
[2018-11-24 19:35] LABS: BASOPHILS # (AUTO) 0.1 X10^3/uL (0.0-0.1); BASOPHILS % (AUTO) 0.9 % (0.2-1.0); EOSINOPHILS # (AUTO) 0.2 x10^3/uL (0.0-0.2); EOSINOPHILS % (AUTO) 1.8 % (0.9-2.9); HEMATOCRIT 44.7 % (42.0-54.0); HEMOGLOBIN 14.6 g/dL (13.5-18.0); LYMPHOCYTES # (AUTO) 4.9 X10^3/uL (1.3-2.9); LYMPHOCYTES % (AUTO) 36.9 % (21.0-51.0); MEAN CORPUSCULAR HEMOGLOBIN 29.3 pg (27.0-34.0); MEAN CORPUSCULAR HGB CONC 32.6 g/dL (33.0-35.0); MEAN CORPUSCULAR VOLUME 89.9 fL (80.0-100.0); MEAN PLATELET VOLUME 7.8 fL (7.4-11.0); MONOCYTES # (AUTO) 1.1 x10^3/uL (0.3-0.8); NEUTROPHILS % (AUTO) 52.4 % (42.0-75.0); PLATELET COUNT 210 X10^3/uL (150.0-450.0); RED BLOOD COUNT 4.97 X10^6/uL (4.7-6.0); RED CELL DISTRIBUTION WIDTH 15.7 % (11.6-16.5); WHITE BLOOD COUNT 13.3 X10^3/uL (3.6-10.0)
[2018-11-24 19:41] LABS: ALANINE AMINOTRANSFERASE 16 Units/L (12-78); ALBUMIN 2.7 g/dL (3.4-5.0); ALKALINE PHOSPHATASE 86 Units/L (46-116); ASPARTATE AMINO TRANSFERASE 22 Units/L (15-37); BLOOD UREA NITROGEN 23 mg/dL (7-18); CALCIUM 9.1 mg/dL (8.5-10.1); CARBON DIOXIDE 36.6 mmol/L (21-32); CHLORIDE 100 mmol/L (98-107); COR CA(FOR HYPOALB) 10.1 mg/dL (8.5-10.1); COR NA(FOR HYPERGLY) 142 mmol/L (136-145); CREATININE 0.79 mg/dL (0.70-1.30); SODIUM 140 mmol/L (136-145); eGFR NON BLACK RACES > 60 (>60)
[2018-11-24 19:41] LABS: APPEARANCE,URINE SLIGHTLY HAZY (CLEAR); COLOR,URINE DARK YELLOW (YELLOW); SQUAMOUS EPITHELIAL CELL,UR NUMEROUS /HPF (NEGATIVE)
[2018-11-24 19:42] LABS: BACTERIA,URINE TRACE /HPF (NEGATIVE); HYALINE CASTS, URINE FEW /LPF (NEGATIVE); MUCUS,URINE FEW /HPF (NEGATIVE)
[2018-11-24] MEDS: NS 1000 ML 1,000 ML IV SCH (19:45)
[2018-11-24 20:00] LABS: ABG BASE EXCESS 17.7 mmol/L (-2.0-2.0)
--- NOTE | 2018-11-24 21:00 | RAD ---
HISTORY: Shortness breath Study: Single-view chest Comparison: 06/13/2018 Findings: The trachea is midline. The cardiac silhouette is stable. The lungs demonstrate changes of COPD without focal infiltrate or effusion. Please note the costophrenic angles not completely included and cannot be adequately assessed.. The bony thorax is unremarkable. IMPRESSION: 1. Changes of COPD with no acute cardiopulmonary findings. Reported By:
[2018-11-24 21:22] LABS: ABG BASE EXCESS 17.5 mmol/L (-2.0-2.0)
[2018-11-24 21:23] LABS: ABG ALLEN TEST POS; ABG HCO3 48.3 mmol/L (22-26)
--- NOTE | 2018-11-24 22:02 | DR.AMS ---
HPI Time Seen Time Seen by Provider: 11/24/18 19:30 Complaint Chief Complaint:: CALL WENT OUT TO DIFF BREATHING OR HEART PROBLEMS PT FOUND SITTING IN A TRUCK UNRESPONSIVE BUT BREATHING SWALLOW RESP 10 PM SATS WERE 50% WHEN PT ARRIVED TO ED PT WAS SWEATING PROFUSELY AND RESP ABOUT 16 FOUND 100 MCG F[place]L PATCH ON RT SHOULDER REMOVED AND DISCARDED DR MCCRACKEN AT PT GIVEN NARCAN 0.4 MG PT BECOMES ALERT AND RESPONSES TO QUESTIONS ASKED. Source History Provided: EMS Mode of Arrival Mode of Arrival: EMS Timing Onset of Chief Complaint: 11/24/18 PMH PMH Past Medical History: Yes Past Medical History: CHF, COPD, Coronary Artery Disease, Depression, GERD and Gout Past Surgical History: Yes Surgical History: Ortho Surgery Family History History of Family Medical Conditions: Yes Family Medical History: Coronary Artery Disease, Heart Failure and Hypertension Social History Does patient currently use any type of tobacco product: Yes Have you used tobacco products in the last 12 months: Yes Type of Tobacco Use: Cigarettes Does any household member use tobacco: Yes Alcohol Use: None Do you use any recreational Drugs:: No infectious screening In the last 2 months have you had wt loss of >10#?: NO Have you had fever, night sweats or hemotysis?: No Have you traveled outside the country in the last 6 months?: No Isolation: Standard ROS Review of Systems Constitutional: No Symptoms Reported Eyes: No Symptoms Reported ENTM: No Symptoms Reported Respiratoy: See HPI Cardiovascular: No Symptoms Reported Gastrointestinal/Abdominal: No Symptoms Reported Genitourinary: No Symptoms Reported Neurological: No Symptoms Reported Musculoskeletal: No Symptoms Reported Integumentary: No Symptoms Reported Hematologic/Lymphatic: No Symptoms Reported Endocrine: No Symptoms Reported Psychiatric: No Symptoms Reported All Other Systems: Reviewed and Negative PE Vitals Vital Signs: Temp Pulse Pulse Resp BP BP BP 11/24/18 21:30 109 H 106/82 11/24/18 21:15 109 H 101/74 11/24/18 21:00 110 H 115/76 11/24/18 20:49 105 H 129/60 11/24/18 20:30 110 H 99/69 11/24/18 20:15 113 H 102/70 11/24/18 20:00 114 H 100/74 11/24/18 19:45 112 H 103/68 11/24/18 19:43 109 H 102/74 11/24/18 19:30 109 H 93/67 11/24/18 19:07 97.8 F 100 H 21 132/104 06/13/18 08:00 152/92 152/92 10/10/12 12:15 114/70 Pulse Ox 11/24/18 21:30 98 11/24/18 21:15 98 11/24/18 21:00 98 11/24/18 20:49 95 11/24/18 20:30 96 11/24/18 20:15 97 11/24/18 20:00 95 11/24/18 19:45 97 11/24/18 19:43 97 11/24/18 19:30 96 11/24/18 19:07 98 06/13/18 08:00 10/10/12 12:15 General Limitations: Altered Mental Status General Appearance: In No Apparent Distress Head Head Exam: Normal Inspection, Atraumatic and Normocephalic Head Exam Physical: Laceration Eyes Eye exam: Normal Appearance, PERRL and EOMI Pupils: Regular, Round: Bilateral ENT ENT Exam: Normal Exam, Normal Oropharynx and Normal External Ear Exam External Ear Exam: Normal External Inspection TM/Canal Exam: Bilateral: Normal Nose Exam: Normal Nose Exam Mouth Exam: Normal Inspection Throat Exam: Normal Inspection Neck Neck Exam: Normal Inspection and Full ROM Chest Chest Inspection: Normal Inspection and Symmetric Chest Wall Rise Respiratory Respiratory Exam: Normal Lung Sounds Bilat Respiratory Exam: Bilateral: Clear to Auscultation Cardiovascular Cardiovascular Exam: Regular Rate and Normal Rhythm Abdominal Exam Abdominal Exam: Normal Inspection, Normal Bowel Sounds and Soft Extremities Extremities Exam: Normal Inspection and Full ROM Back Back Exam: Normal Inspection Neurological Neurological Exam: Alert Cranial Nerve Exam: EOM Function (II, III, IV, ): Normal Cerebellar Function: Other (non ambulatory) Motor Strength - LLE: 3/5 Psychological Psychiatric Exam: Depressed and Flat Affect Expanded Psychiatric Exam: Poor Eye Contact Skin Skin Exam: Warm, Dry, Intact and Normal Color COURSE Treatment Treatment: Bipap Consultation Called: 21:55 Consultation Comments: Dr. Gonzalez agreed to admit for further evaluation and treatment ROR Labs Reviewed Laboratory Results Reviewed?: Yes Result Diagrams: 11/24/18 19:10 11/24/18 19:10 Laboratory: WBC 13.3 X10^3/uL (3.6-10.0) H 11/24/18 19:10 RBC 4.97 X10^6/uL (4.7-6.0) 11/24/18 19:10 Hgb 14.6 g/dL (13.5-18.0) 11/24/18 19:10 Hct 44.7 % (42.0-54.0) 11/24/18 19:10 MCV 89.9 fL (80.0-100.0) 11/24/18 19:10 MCH 29.3 pg (27.0-34.0) 11/24/18 19:10 MCHC 32.6 g/dL (33.0-35.0) L 11/24/18 19:10 RDW 15.7 % (11.6-16.5) 11/24/18 19:10 Plt Count 210 X10^3/uL (150.0-450.0) 11/24/18 19:10 MPV 7.8 fL (7.4-11.0) 11/24/18 19:10 Neut % (Auto) 52.4 % (42.0-75.0) 11/24/18 19:10 Lymph % (Auto) 36.9 % (21.0-51.0) 11/24/18 19:10 [place] % (Auto) 8.0 % (0.0-13.0) 11/24/18 19:10 Eos % (Auto) 1.8 % (0.9-2.9) 11/24/18 19:10 Baso % (Auto) 0.9 % (0.2-1.0) 11/24/18 19:10 Neut # (Auto) 7.0 x10^3/uL (2.2-4.8) H 11/24/18 19:10 Lymph # (Auto) 4.9 X10^3/uL (1.3-2.9) H 11/24/18 19:10 [place] # (Auto) 1.1 x10^3/uL (0.3-0.8) H 11/24/18 19:10 Eos # (Auto) 0.2 x10^3/uL (0.0-0.2) 11/24/18 19:10 Baso # (Auto) 0.1 X10^3/uL (0.0-0.1) 11/24/18 19:10 Absolute Nucleated RBC 0.0 /100WBC 11/24/18 19:10 INR Target Range - 11/24/18 19:10 INR 1.06 (0.8-1.3) 11/24/18 19:10 APTT 38.0 SECONDS (22.9-36.5) H 11/24/18 19:10 PTT Comment - 11/24/18 19:10 Sample Site Rr 11/24/18 21:15 ABG pH 7.310 (7.35-7.45) L 11/24/18 21:15 ABG pCO2 96.0 mmHg (35.0-45.0) H* 11/24/18 21:15 ABG pO2 57.0 mmHg (80.0-100.0) L 11/24/18 21:15 ABG HCO3 48.3 mmol/L (22-26) H* 11/24/18 21:15 ABG O2 Saturation 86.0 % (90-100) L 11/24/18 21:15 ABG Base Excess 17.5 mmol/L (-2.0-2.0) H 11/24/18 21:15 Alexei Test Pos 11/24/18 21:15 A-a Gradient 73.0 mmHg 11/24/18 21:15 FiO2 35.0 11/24/18 21:15 Blood Gas Comments Sukhi well ae 11/24/18 21:15 Sodium 140 mmol/L (136-145) 11/24/18 19:10 Corrected Sodium 142 mmol/L (136-145) 11/24/18 19:10 Potassium 5.0 mmol/L (3.5-5.1) 11/24/18 19:10 Chloride 100 mmol/L (98-107) 11/24/18 19:10 Carbon Dioxide 36.6 mmol/L (21-32) H 11/24/18 19:10 BUN 23 mg/dL (7-18) H 11/24/18 19:10 Creatinine 0.79 mg/dL (0.70-1.30) 11/24/18 19:10 Est GFR (MDRD) Af Amer > 60 (>60) 11/24/18 19:10 Est GFR (MDRD) Non-Af > 60 (>60) 11/24/18 19:10 Glucose 163 mg/dL (65-99) H 11/24/18 19:10 Calcium 9.1 mg/dL (8.5-10.1) 11/24/18 19:10 Corrected Calcium 10.1 mg/dL (8.5-10.1) 11/24/18 19:10 Total Bilirubin 0.30 mg/dL (0.2-1.0) 11/24/18 19:10 AST 22 Units/L (15-37) 11/24/18 19:10 ALT 16 Units/L (12-78) 11/24/18 19:10 Alkaline Phosphatase 86 Units/L (46-116) 11/24/18 19:10 B-Natriuretic Peptide 67.9 pg/mL (0-79) 11/24/18 19:10 Total Protein 6.0 g/dL (6.4-8.2) L 11/24/18 19:10 Albumin 2.7 g/dL (3.4-5.0) L 11/24/18 19:10 Globulin 3.3 g/dL (2.5-4.5) 11/24/18 19:10 Albumin/Globulin Ratio 0.8 Ratio (1.1-2.1) L 11/24/18 19:10 Specimen Type Catherized urine 11/24/18 19:22 Urine Color Dark yellow (YELLOW) 11/24/18 19:22 Urine Appearance Slightly hazy (CLEAR) 11/24/18 19:22 Urine pH 5.0 (5.0 - 8.0) 11/24/18 19:22 Ur Specific [place] 1.030 (1.000-1.030) 11/24/18 19:22 Urine Protein 3+ (NEGATIVE) 11/24/18 19:22 Urine Glucose (UA) Negative (NEGATIVE) 11/24/18 19:22 Urine Ketones 1+ (NEGATIVE) 11/24/18 19: Urine Occult Blood 4+ (NEGATIVE) 11/24/18: Urine Nitrite Negative (NEGATIVE) 11/24/18 19:22 Urine Bilirubin 1+ (NEGATIVE) 11/24/18 19:22 Urine Urobilinogen 2+ (NORMAL) 11/24/18 19: Ur Leukocyte Esterase 1+ (NEGATIVE) 11/24/18 19: Urine RBC 10-20 /HPF (NONE SEEN) 11/24/18 19:22 Urine WBC 0-2 /HPF (NONE SEEN) 11/24/18 19:22 Ur Squamous Epith Cells Numerous /HPF (NEGATIVE) 11/24/18 19:22 Urine Bacteria Trace /HPF (NEGATIVE) 11/24/18 19: Hyaline Casts Few /LPF (NEGATIVE) 11/24/18 19: Urine Mucus Few /HPF (NEGATIVE) 11/24/18 19:22 Ur Culture Indicated? No/not indicated 11/24/18 19: Urine Opiates Screen Positive (NEG=<300) 11/24/18 19: Urine Methadone Screen Negative (NEG=<300) 11/24/18 19: Ur Barbiturates Screen Negative (NEG=<200) 11/24/18 19:22 Ur Phencyclidine Scrn Negative (NEG=<25) 11/24/18 19:22 Ur Amphetamines Screen Negative (NEG=<1000) 11/24/18 19: U Benzodiazepines Scrn Positive (NEG=<200) 11/24/18 19:22 Urine Cocaine Screen Negative (NEG=<300) 11/24/18 19:22 U Marijuana (THC) Screen Negative (NEG=<50) 11/24/18 19:22
[2018-11-24] MEDS ORDERED: PHENERGAN INJ 25 MG IM PRN (22:32)
[2018-11-24] MEDS ORDERED: MILK OF MAGNESIA PO PRN (22:32)
[2018-11-24] MEDS ORDERED: ROBITUSSIN DM PO PRN (22:32)
[2018-11-24] MEDS ORDERED: TYLENOL 325 MG TAB PO PRN (22:32)
[2018-11-24] MEDS ORDERED: PHENOBARBITAL SODIUM INJ 65 MG VIAL IM PRN (22:32)
[2018-11-24] MEDS ORDERED: DUONEB 0.5 MG/3 MG ONE (22:47)
[2018-11-24] MEDS ORDERED: DUONEB 0.5 MG/3 MG NEB ONE (22:50)
[2018-11-24] MEDS ORDERED: PROVENTIL NEB TX 0.083% 2.5MG/ 3ML NEB PRN (23:40)
[2018-11-25 00:07] VITALS: BMI 29.5
[2018-11-25 00:11] LABS: ABG ALLEN TEST POS; ABG HCO3 45.2 mmol/L (22-26)
[2018-11-25] MEDS ORDERED: NS 1000 ML 1,000 ML ONE (01:48)
[2018-11-25] MEDS: NS 1000 ML 1,000 ML IV SCH ×4 (02:07→20:07)
[2018-11-25] MEDS: DUONEB 0.5 MG/3 MG NEB SCH ×3 (05:30→21:05)
[2018-11-25] MEDS: ZOFRAN TAB 4 MG SL PRN (08:50)
[2018-11-25] MEDS: PEPCID TAB 20 MG PO SCH ×2 (09:41→20:07)
[2018-11-25] MEDS: PULMICORT NEB TX 0.5 MG NEB SCH ×2 (09:42→21:05)
[2018-11-25] MEDS ORDERED: ZANAFLEX PO PRN (10:17)
[2018-11-25] MEDS: PERCOCET TAB 5/325 MG PO PRN ×2 (11:05→20:07)
[2018-11-25] MEDS: CARDIZEM CD 180 MG PO SCH (11:06)
[2018-11-25] MEDS: COREG TAB 25 MG PO SCH ×2 (11:06→20:07)
[2018-11-25] MEDS: CYMBALTA PO SCH ×2 (11:06→20:07)
[2018-11-25] MEDS: FLOMAX PO SCH (11:06)
[2018-11-25] MEDS: DALIRESP PO SCH (11:07)
[2018-11-26] MEDS: NS 1000 ML 1,000 ML IV SCH ×2 (04:37→12:54)
[2018-11-26] MEDS: DUONEB 0.5 MG/3 MG NEB SCH ×2 (05:18→18:13)
[2018-11-26 05:32] LABS: BASOPHILS # (AUTO) 0.1 X10^3/uL (0.0-0.1); BASOPHILS % (AUTO) 0.7 % (0.2-1.0); EOSINOPHILS # (AUTO) 0.2 x10^3/uL (0.0-0.2); EOSINOPHILS % (AUTO) 2.4 % (0.9-2.9); HEMATOCRIT 35.5 % (42.0-54.0); LYMPHOCYTES # (AUTO) 2.7 X10^3/uL (1.3-2.9); LYMPHOCYTES % (AUTO) 31.1 % (21.0-51.0); MEAN CORPUSCULAR HEMOGLOBIN 29.9 pg (27.0-34.0); MEAN CORPUSCULAR HGB CONC 33.5 g/dL (33.0-35.0); MEAN CORPUSCULAR VOLUME 89.2 fL (80.0-100.0); MEAN PLATELET VOLUME 8.1 fL (7.4-11.0); MONOCYTES # (AUTO) 0.6 x10^3/uL (0.3-0.8); MONOCYTES % (AUTO) 7.2 % (0.0-13.0); NEUTROPHILS % (AUTO) 58.6 % (42.0-75.0); PLATELET COUNT 184 X10^3/uL (150.0-450.0); RED BLOOD COUNT 3.97 X10^6/uL (4.7-6.0); RED CELL DISTRIBUTION WIDTH 15.5 % (11.6-16.5); WHITE BLOOD COUNT 8.5 X10^3/uL (3.6-10.0)
[2018-11-26 05:44] LABS: ALANINE AMINOTRANSFERASE 9 Units/L (12-78); ALBUMIN 1.9 g/dL (3.4-5.0); ALKALINE PHOSPHATASE 72 Units/L (46-116); ASPARTATE AMINO TRANSFERASE 14 Units/L (15-37); BLOOD UREA NITROGEN 12 mg/dL (7-18); CALCIUM 7.9 mg/dL (8.5-10.1); CARBON DIOXIDE 37.6 mmol/L (21-32); CHLORIDE 101 mmol/L (98-107); COR CA(FOR HYPOALB) 9.6 mg/dL (8.5-10.1); COR NA(FOR HYPERGLY) 140 mmol/L (136-145); CREATININE 0.56 mg/dL (0.70-1.30); SODIUM 139 mmol/L (136-145); TOTAL PROTEIN 4.9 g/dL (6.4-8.2); eGFR NON BLACK RACES > 60 (>60)
[2018-11-26 06:03] LABS: HEMOGLOBIN 11.9 g/dL (13.5-18.0)
[2018-11-26] MEDS ORDERED: POTASSIUM CHL 40 MEQ/NS 0.45% 500 ML IV PRN (06:35)
[2018-11-26] MEDS ORDERED: MICRO K EXTEN CAP 10 MEQ PO PRN (06:35)
[2018-11-26] MEDS ORDERED: K-RIDER 10 MEQ/NS 100 ML 10 MEQ/100 ML BAG IV PRN (06:35)
[2018-11-26] MEDS ORDERED: POTASSIUM CHLORIDE LIQ 20 MEQ UDC PO PRN (06:35)
[2018-11-26] MEDS ORDERED: KLOR-CON PO PRN (06:35)
[2018-11-26] MEDS ORDERED: K-DUR TAB 20 MEQ PO PRN (06:35)
[2018-11-26] MEDS ORDERED: POTASSIUM CHL 60 MEQ/NS 0.45% 500 ML IV PRN (06:35)
[2018-11-26] MEDS: PULMICORT NEB TX 0.5 MG NEB SCH (08:05)
[2018-11-26] MEDS: CARDIZEM CD 180 MG PO SCH (08:16)
[2018-11-26] MEDS: PEPCID TAB 20 MG PO SCH (08:17)
[2018-11-26] MEDS: DALIRESP PO SCH (08:17)
[2018-11-26] MEDS: CYMBALTA PO SCH (08:17)
[2018-11-26] MEDS: COREG TAB 25 MG PO SCH (08:17)
[2018-11-26] MEDS: FLOMAX PO SCH (08:17)
[2018-11-26] MEDS ORDERED: LASIX PO SCH (09:00)
[2018-11-26] MEDS: PERCOCET TAB 5/325 MG PO PRN (10:37)
[2018-11-26] MEDS: ZOFRAN TAB 4 MG SL PRN (14:19)
[2018-11-26 16:29] VITALS: BP 121/69
== END 2018-11-26 19:35 | disposition home or self-care (01) | DRG 918 ==
LOC: ER 19:03 → ICU 22:30
PROVIDERS: ADMIT Obstetrics & Gynecology Obstetrics; ATTEND Obstetrics & Gynecology Obstetrics
DX: I25.10 Atherosclerotic heart disease of native coronary artery without angina pectoris; Z72.0 Tobacco use; J44.9 Chronic obstructive pulmonary disease, unspecified; N40.0 Benign prostatic hyperplasia without lower urinary tract symptoms; F32.89 Other specified depressive episodes; R06.03 Acute respiratory distress; G89.29 Other chronic pain; R79.1 Abnormal coagulation profile; T42.4X1A Poisoning by benzodiazepines, accidental (unintentional), initial encounter; K21.9 Gastro-esophageal reflux disease without esophagitis; R26.89 Other abnormalities of gait and mobility; I48.91 Unspecified atrial fibrillation
CPT/HCPCS: 36415; 36600; 51702; 71010; 71045; 80053; 80307; 81001; 82803; 83735; 83880; 85025; 85610; 85730; 93005; 94640; 94660; 96365; 96367; 96374; 97162; 97166; 99285; A4618; A7030; G0434; J2310; J7030; J7613; J7620; J7626; S0119; S0181

== ENCOUNTER 2019-01-02 12:08 | Inpatient (IN) ==
[2019-01-02] MEDS ORDERED: ZOFRAN INJ 4 MG VIAL ONE ×2 (12:23→13:12)
[2019-01-02 12:24] VITALS: BMI 26.7
[2019-01-02] MEDS ORDERED: ZOFRAN INJ 4 MG VIAL IVP ONE ×2 (12:24→13:12)
--- NOTE | 2019-01-02 12:30 | DR.NOSEBLE ---
HPI Time Seen Time Seen by Provider: 01/02/19 12:29 Primary Care Physician Primary Care Physician: JAXON HPI Comment HPI Comment: PATIENT IS A 58 YEAR OLD MALE WHO IS ON XARELTA FOR A FIB IS IN THE ER WITH NOSEBLEED INTERMITTENTLY FOR ONE DAY. PATIENT HAS HAD SEVERAL EPISODES THAT HAVE RESPONDED TO PRESSURE BUT PASS SEVERAL HOURS BLEEDING IS HEAVY AND MORE FREQUENT. PATIENT DENIES TRAUMA OR SINUS INFECTION HE DENIES DIZINESS BUT HAS STARTED FEELING WEAK. Complaints Chief Complaint Doctors Comments: NOSEBLEED, PATIENT ON ANTICOAGULATION MEDICATION (XARELTA). Chief Complaint:: PT C/O NOSE BLEED THAT STARTED YESTERDAY AFTERNOON. PT STATES HIS NOSE HAS BEEN BLEEDING ON AND OFF. PT STATES IT STARTED BACK EARLIER. Reviewed Nurses Notes Reviewed: Yes Source History Provided: Patient and EMS Mode of Arrival Mode of Arrival: Ambulatory Timing Onset of Chief Complaint: 01/01/19 Duration Bleeding: Intermittent Duration: Days Location Location: Both Severity Severity: Moderate Measure: Tablespoons Bleeding:: Controlled Associated Signs and Symptoms Associated Signs and Symptoms: None Other History Other History: PATIENT ON XARELTO FOR A FIB. PMH PMH Past Medical History: Yes Past Medical History: CHF, COPD, Coronary Artery Disease, GERD and Hypertension Past Medical History Comment: AFIB Past Surgical History: Yes Surgical History: Ortho Surgery Family History History of Family Medical Conditions: Yes Family Medical History: Coronary Artery Disease, Heart Failure and Hypertension Social History Does patient currently use any type of tobacco product: Yes Have you used tobacco products in the last 12 months: Yes Type of Tobacco Use: Cigarettes Does any household member use tobacco: Yes Alcohol Use: None Do you use any recreational Drugs:: No Lives With: Family Lives Where: Home infectious screening In the last 2 months have you had wt loss of >10#?: NO Have you had fever, night sweats or hemotysis?: No Have you traveled outside the country in the last 6 months?: No Isolation: Standard ROS Review of Systems Constitutional: See HPI; negative Fever, Weakness and Fatigue Eyes: See HPI; negative Blurred Vision, Photophobia and Diplopia ENTM: See HPI PE Vital Signs Vitals: Temperature 98.0 F Pulse Rate [Left Radial] 93 Pulse Rate [Right Radial] 106 Pulse Rate 99 Respiratory Rate 22 Blood Pressure [Left Arm] 128/85 Blood Pressure [Right Arm] 114/79 Blood Pressure 95/66 O2 Sat by Pulse Oximetry 99 ROR Labs Reviewed Result Diagrams: 01/04/19 04:57 01/04/19 04:57 Laboratory: WBC 8.6 X10^3/uL (3.6-10.0) 01/04/19 04:57 RBC 3.79 X10^6/uL (4.7-6.0) L 01/04/19 04:57 Hgb 11.2 g/dL (13.5-18.0) L 01/04/19 04:57 Hct 34.0 % (42.0-54.0) L 01/04/19 04:57 MCV 89.8 fL (80.0-100.0) 01/04/19 04:57 MCH 29.7 pg (27.0-34.0) 01/04/19 04:57 MCHC 33.1 g/dL (33.0-35.0) 01/04/19 04:57 RDW 15.9 % (11.6-16.5) 01/04/19 04:57 Plt Count 258 X10^3/uL (150.0-450.0) 01/04/19 04:57 MPV 8.4 fL (7.4-11.0) 01/04/19 04:57 Neut % (Auto) 53.8 % (42.0-75.0) 01/04/19 04:57 Lymph % (Auto) 31.8 % (21.0-51.0) 01/04/19 04:57 [place] % (Auto) 9.5 % (0.0-13.0) 01/04/19 04:57 Eos % (Auto) 4.1 % (0.9-2.9) H 01/04/19 04:57 Baso % (Auto) 0.8 % (0.2-1.0) 01/04/19 04:57 Neut # (Auto) 4.6 x10^3/uL (2.2-4.8) 01/04/19 04:57 Lymph # (Auto) 2.8 X10^3/uL (1.3-2.9) 01/04/19 04:57 [place] # (Auto) 0.8 x10^3/uL (0.3-0.8) 01/04/19 04:57 Eos # (Auto) 0.4 x10^3/uL (0.0-0.2) H 01/04/19 04:57 Baso # (Auto) 0.1 X10^3/uL (0.0-0.1) 01/04/19 04:57 Absolute Nucleated RBC 0.1 /100WBC 01/04/19 04:57 INR Target Range - 01/03/19 04:03 INR 1.12 (0.8-1.3) 01/03/19 04:03 APTT 40.7 SECONDS (22.9-36.5) H 01/03/19 04:03 PTT Comment - 01/03/19 04:03 Sodium 145 mmol/L (136-145) 01/04/19 04:57 Corrected Sodium TNP 01/04/19 04:57 Potassium 3.8 mmol/L (3.5-5.1) 01/04/19 04:57 Chloride 104 mmol/L (98-107) 01/04/19 04:57 Carbon Dioxide 38.8 mmol/L (21-32) H 01/04/19 04:57 BUN 5 mg/dL (7-18) L 01/04/19 04:57 Creatinine 0.46 mg/dL (0.70-1.30) L 01/04/19 04:57 Est GFR (MDRD) Af Amer > 60 (>60) 01/04/19 04:57 Est GFR (MDRD) Non-Af > 60 (>60) 01/04/19 04:57 Glucose 96 mg/dL (65-99) 01/04/19 04:57 Calcium 8.1 mg/dL (8.5-10.1) L 01/04/19 04:57 Corrected Calcium 9.2 mg/dL (8.5-10.1) 01/04/19 04:57 Total Bilirubin 0.10 mg/dL (0.2-1.0) L 01/04/19 04:57 AST 13 Units/L (15-37) L 01/04/19 04:57 ALT 12 Units/L (12-78) 01/04/19 04:57 Alkaline Phosphatase 96 Units/L (46-116) 01/04/19 04:57 Creatine Kinase Cancelled 01/02/19 13:05 CK-MB (CK-2) Cancelled 01/02/19 13:05 CK/CKMB % Calc Cancelled 01/02/19 13:05 Troponin I Cancelled 01/02/19 13:05 Total Protein 5.2 g/dL (6.4-8.2) L 01/04/19 04:57 Albumin 2.6 g/dL (3.4-5.0) L 01/04/19 04:57 Globulin 2.6 g/dL (2.5-4.5) 01/04/19 04:57 Albumin/Globulin Ratio 1.0 Ratio (1.1-2.1) L 01/04/19 04:57 Triglycerides 41 mg/dL (0-150) 01/03/19 04:03 Cholesterol 109 mg/dL (0-200) 01/03/19 04:03 LDL Cholesterol, Calc 58 mg/dL (0-100) 01/03/19 04:03 HDL Cholesterol 43 mg/dL (40-60) 01/03/19 04:03 Cholesterol/HDL Ratio 2.5 (0.0-5.0) 01/03/19 04:03 Amylase 44 Units/L (25-115) 01/02/19 13:05 Lipase 105 Units/L (73-393) 01/02/19 13:05 Digoxin 0.48 ng/mL (0.9-2) L 01/04/19 04:57 Opioid Opioid Risk Tool Age (Bong box if 16-45): Yes Total: 1 Total Score Risk Category: Low Risk Copyright: Zach predicting aberrant behaviors Diagnosis Discharge Problem: Acute hypotension, Epistaxis, Hypercoagulable state Instructions Instructions: Hypertension, Oybi-[id number] Nosebleed, Rifm-pv-Dxpt Atrial Fibrillation, [id number]-[id number] Forms: Excuse From Work or School
[2019-01-02 13:15] LABS: BASOPHILS # (AUTO) 0.1 X10^3/uL (0.0-0.1); BASOPHILS % (AUTO) 1.1 % (0.2-1.0); EOSINOPHILS # (AUTO) 0.3 x10^3/uL (0.0-0.2); EOSINOPHILS % (AUTO) 2.5 % (0.9-2.9); HEMATOCRIT 39.7 % (42.0-54.0); HEMOGLOBIN 13.2 g/dL (13.5-18.0); LYMPHOCYTES % (AUTO) 29.9 % (21.0-51.0); MEAN CORPUSCULAR HEMOGLOBIN 29.7 pg (27.0-34.0); MEAN CORPUSCULAR HGB CONC 33.3 g/dL (33.0-35.0); MEAN CORPUSCULAR VOLUME 89.3 fL (80.0-100.0); MEAN PLATELET VOLUME 8.1 fL (7.4-11.0); MONOCYTES # (AUTO) 0.8 x10^3/uL (0.3-0.8); MONOCYTES % (AUTO) 8.4 % (0.0-13.0); NEUTROPHILS # (AUTO) 5.7 x10^3/uL (2.2-4.8); NEUTROPHILS % (AUTO) 58.1 % (42.0-75.0); PLATELET COUNT 244 X10^3/uL (150.0-450.0); RED BLOOD COUNT 4.45 X10^6/uL (4.7-6.0); RED CELL DISTRIBUTION WIDTH 16.2 % (11.6-16.5); WHITE BLOOD COUNT 9.9 X10^3/uL (3.6-10.0)
[2019-01-02 13:24] LABS: ALANINE AMINOTRANSFERASE 13 Units/L (12-78); ALBUMIN 3.1 g/dL (3.4-5.0); ALKALINE PHOSPHATASE 88 Units/L (46-116); AMYLASE 44 Units/L (25-115); ASPARTATE AMINO TRANSFERASE 13 Units/L (15-37); BLOOD UREA NITROGEN 8 mg/dL (7-18); CALCIUM 8.7 mg/dL (8.5-10.1); CARBON DIOXIDE 39.9 mmol/L (21-32); CHLORIDE 101 mmol/L (98-107); COR CA(FOR HYPOALB) 9.4 mg/dL (8.5-10.1); CREATININE 0.54 mg/dL (0.70-1.30); LIPASE 105 Units/L (73-393); SODIUM 140 mmol/L (136-145); TOTAL PROTEIN 6.8 g/dL (6.4-8.2); eGFR NON BLACK RACES > 60 (>60)
--- NOTE | 2019-01-02 13:29 | RAD ---
HISTORY: Nausea. Abdominal pain. Study: Upright PA chest with supine and upright abdominal views. Comparison: CT of the abdomen pelvis 12/17/2018, plain films of the chest 11/24/2018 Findings: Moderate hyperinflation and chronic interstitial scarring is noted. There are findings of focal chronic scarring in the left lung base, unchanged. Prior cervical spine surgery has been performed. The heart size is normal. Examination of the abdomen demonstrates scattered large and small bowel gas. A moderate amount of stool is noted in the ascending colon. Minimal is noted elsewhere. There is suggestion of focal thickening of the mucosal folds in the descending colon. This could be due to underlying colitis. It may be due to nondistention. Small calcifications are present in the anatomic pelvis. These most likely are phleboliths. Distal ureteral calculi cannot be excluded. Clinical correlation is recommended. No abnormal calcifications are seen to overlie the renal shadows. Mild lumbar spondylosis is noted. Moderate degenerative changes present in the hips as visualized. IMPRESSION: 1. Findings of chronic obstructive pulmonary disease. 2. Moderate amount of stool within the ascending colon. 3. There appears to be mucosal fold thickening involving the descending colon. I cannot exclude the possibility of underlying colitis. Clinical correlation is recommended. 4. No evidence of bowel obstruction or pneumoperitoneum. Reported By:
[2019-01-02] MEDS ORDERED: AFRIN NASAL SPRAY ONE (14:44)
[2019-01-02] MEDS ORDERED: NORCO 10/325 TAB PO ONE (15:00)
[2019-01-02] MEDS ORDERED: DUONEB 0.5 MG/3 MG NEB PRN ×2 (15:10→19:01)
[2019-01-02] MEDS ORDERED: PROVENTIL NEB TX 0.083% 2.5MG/ 3ML NEB PRN (15:11)
[2019-01-02] MEDS ORDERED: NORCO 10/325 TAB ONE (15:16)
[2019-01-02] MEDS: AFRIN NASAL SPRAY PRN (15:18)
[2019-01-02] MEDS ORDERED: PHENERGAN INJ 25 MG IM ONE (15:53)
[2019-01-02] MEDS ORDERED: NS 1000 ML 1,000 ML ONE (15:53)
[2019-01-02] MEDS: NS 1000 ML 1,000 ML IV SCH ×2 (16:08→20:46)
[2019-01-02] MEDS: PHENERGAN INJ 25 MG IM PRN (16:10)
[2019-01-02] MEDS ORDERED: DALIRESP PO SCH (19:01)
[2019-01-02] MEDS ORDERED: PATIENT'S HOME MEDICATION (Albuterol Sulfate [Proventil Hfa] 2 PUFF) IN PRN (19:01)
[2019-01-02] MEDS ORDERED: VITAMIN D (1.25MG) PO SCH (19:01)
[2019-01-02] MEDS ORDERED: VENTOLIN or PROAIR HFA IN PRN (19:09)
[2019-01-02] MEDS: FLOMAX PO SCH (20:46)
[2019-01-02] MEDS: PATIENT'S HOME MEDICATION (Budesonide-Formoterol 2 PUFF) IN SCH (21:30)
[2019-01-02] MEDS: COLACE CAP 100 MG PO SCH (22:11)
[2019-01-02] MEDS: NORCO 5/325 MG TAB PO PRN (23:01)
[2019-01-03] MEDS: NS 1000 ML 1,000 ML IV SCH ×2 (04:11→16:23)
[2019-01-03] MEDS: PHENERGAN INJ 25 MG IM PRN ×2 (04:15→19:00)
[2019-01-03] MEDS: AFRIN NASAL SPRAY PRN ×2 (04:55→17:43)
[2019-01-03 05:21] LABS: BASOPHILS # (AUTO) 0.1 X10^3/uL (0.0-0.1); EOSINOPHILS # (AUTO) 0.3 x10^3/uL (0.0-0.2); EOSINOPHILS % (AUTO) 3.5 % (0.9-2.9); HEMATOCRIT 37.6 % (42.0-54.0); LYMPHOCYTES # (AUTO) 2.7 X10^3/uL (1.3-2.9); LYMPHOCYTES % (AUTO) 32.5 % (21.0-51.0); MEAN CORPUSCULAR HGB CONC 32.1 g/dL (33.0-35.0); MEAN CORPUSCULAR VOLUME 90.6 fL (80.0-100.0); MEAN PLATELET VOLUME 8.8 fL (7.4-11.0); MONOCYTES # (AUTO) 0.8 x10^3/uL (0.3-0.8); NEUTROPHILS # (AUTO) 4.5 x10^3/uL (2.2-4.8); PLATELET COUNT 256 X10^3/uL (150.0-450.0); RED BLOOD COUNT 4.15 X10^6/uL (4.7-6.0); WHITE BLOOD COUNT 8.4 X10^3/uL (3.6-10.0)
[2019-01-03 05:43] LABS: ALANINE AMINOTRANSFERASE 11 Units/L (12-78); ALBUMIN 2.8 g/dL (3.4-5.0); ALKALINE PHOSPHATASE 82 Units/L (46-116); ASPARTATE AMINO TRANSFERASE 13 Units/L (15-37); BLOOD UREA NITROGEN 7 mg/dL (7-18); CALCIUM 8.6 mg/dL (8.5-10.1); CARBON DIOXIDE 37.5 mmol/L (21-32); CHLORIDE 103 mmol/L (98-107); CHOL/HDL RATIO 2.5 (0.0-5.0); CHOLESTEROL 109 mg/dL (0-200); COR CA(FOR HYPOALB) 9.6 mg/dL (8.5-10.1); CREATININE 0.48 mg/dL (0.70-1.30); HDL CHOLESTEROL 43 mg/dL (40-60); SODIUM 141 mmol/L (136-145); TOTAL PROTEIN 6.2 g/dL (6.4-8.2); TRIGLYCERIDES 41 mg/dL (0-150); eGFR NON BLACK RACES > 60 (>60)
[2019-01-03] MEDS: NORCO 5/325 MG TAB PO PRN (06:10)
[2019-01-03] MEDS: COLACE CAP 100 MG PO SCH ×2 (08:43→20:19)
[2019-01-03] MEDS: MILK OF MAGNESIA PO SCH ×4 (08:44→20:19)
[2019-01-03] MEDS: MIRALAX POWDER (1 DOSE 17 G) PO SCH (08:44)
[2019-01-03] MEDS: NORCO 10/325 TAB PO PRN ×4 (08:44→20:19)
[2019-01-03] MEDS: DALIRESP PO SCH (08:44)
[2019-01-03] MEDS: LANOXIN PO SCH (08:44)
[2019-01-03] MEDS ORDERED: DEMEROL INJ IVP PRN (09:11)
[2019-01-03] MEDS ORDERED: NS 100 ML IV 100 ML ONE (09:22)
[2019-01-03] MEDS: PATIENT'S HOME MEDICATION (Budesonide-Formoterol 2 PUFF) IN SCH ×2 (09:23→21:00)
--- NOTE | 2019-01-03 10:39 | CT ---
HISTORY: Shortness of breath Study: CTA chest Comparison: None Technique: Multiple axial images of the chest were obtained after the administration of IV contrast. 3D reconstructions were performed utilizing radial maximum intensity projection imaging. Dose reduction techniques including Automated Exposure Control (AEC) and adjustment of mA and kV were utilized. Findings: Contrast opacification of the pulmonary arteries is adequate to the level of the segmental branches. No evidence of acute pulmonary emboli. Heart size is normal. There is calcified plaque in the coronary arteries. No pericardial effusion. The aorta appears normal in course and caliber. Mild emphysematous changes are present. There is bronchiolar thickening and mucous plugging in the right lower lobe with secretions also noted in the bilateral mainstem bronchi, greater on the right. No effusion or pneumothorax. There are degenerative changes of the bony thorax with mild dextroscoliosis. The visualized portions of the upper abdomen are grossly unremarkable. IMPRESSION: 1. Bilateral lower lobe airway secretions with bronchiolar thickening and mucous plugging in the right lower lobe. 2. Chronic emphysematous changes. 3. No acute pulmonary embolism. Reported By:
--- NOTE | 2019-01-03 10:44 | CT ---
HISTORY: Nose bleed for 3 days Study: CT sinuses without contrast Comparison: None Technique: Multiple axial images of the paranasal sinuses were obtained without the administration of IV contrast. Coronal and sagittal reformats were performed and reviewed. Dose reduction techniques including Automated Exposure Control (AEC) and adjustment of mA and kV were utilized. Findings: The maxillary sinuses, anterior and posterior ethmoid air cells, sphenoid sinuses, and frontal sinuses demonstrate no evidence for mucosal inflammatory disease. The ostiomeatal complexes on the right and left are patent without inflammatory change. The left and right frontal recesses are unremarkable in their appearance. The nasal septum is midline. There is packing material in the right nostril. Visualized portions of the posterior fossa and intracranial structures are unremarkable. IMPRESSION: 1. Negative CT of the sinuses. Reported By:
[2019-01-03] MEDS: DUONEB 0.5 MG/3 MG NEB PRN ×2 (11:59→21:45)
--- NOTE | 2019-01-03 16:12 | DR.H&P ---
H&P - History & Physical for Day of: H&P Date: 01/02/19 - Chief Complaint Chief Complaint: NOSE BLEEDS, ABDOMINAL PAIN, NAUSEA - History of Present Illness History of Present Illness: IS A 58 YEAR OLD WHITE MALE WHO PRESENTED TO THE ER WITH COMPLAINTS OF INTERMITTENT NOSE BLEEDS SINCE ONE DAY PRIOR. HE ALSO REPORTS ABDOMINAL PAIN AND NAUSEA. ON ARRIVAL TO THE ER, HE IS NOTED WITH DRY BLOOD TO THE RIGHT NARE. HE REPORTS A MEDICAL HISTORY OF CHF, COPD, CAD, GERD, HTN, AND A HISTORY OF PULMONARY EMBOLISM. HE IS CURRENTLY TAKING XARELTO 20MG PO DAILY FOR PEs. ON ARRIVAL TO THE ER, VITALS WERE 97.8-98-20-91%-95/66. LABS WERE OBTAINED. ABNORMAL LAB VALUES INCLUDE THE FOLLOWING: RBC 4.45, HGB 13.2, HCT 39.7, INR 1.94, PTT 51.2, CARBON DIOXIDE 39.9, CREATININE 0.54, GLUCOSE 106, AST 13, ALBUMIN 3.1. AN ABDOMINAL XRAY WAS OBTAINED AND REVEALED: Findings of chronic obstructive pulmonary disease. Moderate amount of stool within the ascending colon. There appears to be mucosal fold thickening involving the descending colon. No evidence of bowel obstruction or pneumoperitoneum. HE WAS GIVEN NORCO 10/325MG PO X 1, ZOFRAN 4MG IV X 2 DOSES IN THE ER WITH NO IMPROVEMENT IN SYMPTOMS. HE WAS ADMITTED TO THE HOSPITAL FOR TREATMENT OF EPISTAXIX, HYPOTENSION, AND ABDOMINAL PAIN. HE WAS STARTED ON NORMAL SALINE AT 125ML/HR AND HOME MEDICATIONS WERE RESUMED WITH THE EXCEPTION OF XARELTO. OTHERWISE, WE WILL FOLLOW UP WITH AM LABS AND CONTINUE TO MONITOR. - Past Medical History Past Medical History: Coronary Artery Disease, Hypertension, COPD, GERD, CHF - Past Surgical History Surgical History: Ortho Surgery, Other - Family History Family Medical History: Sudden Cardiac - Social History Does patient currently use any type of tobacco product: Yes Have you used tobacco products in the last 12 months: Yes Type of Tobacco Use: Cigarettes Does any household member use tobacco: Yes Alcohol Use: Occasionally Drug Use: Prescription Drugs - Medications Home Medications: No Known Drug Allergies Allergy (Verified 05/14/18 22:53) CONTINUE taking the following medications ipratropium-albuterol 1 neb NEB TID PRN 01/02/19 [History] - Review of Systems Constitutional: No Symptoms Reported Eyes: No Symptoms Reported ENT: See HPI, Nose Discharge, Other (INTERMITTENT NOSE BLEEDS FROM RIGHT NARE ) Respiratory: No Symptoms Reported Cardiovascular: No Symptoms Reported Gastrointestinal: See HPI, Nausea, Abdominal Pain, Constipation Genitourinary: No Symptoms Reported Musculoskeletal: No Symptoms Reported Skin: No Symptoms Reported Neurological: No Symptoms Reported - Physical Exam Vital Signs: Temperature 98.5 F Pulse Rate [Right Radial] 89 Pulse Rate 95 Respiratory Rate 20 Blood Pressure [Left Arm] 127/70 Blood Pressure [Right Arm] 114/79 Blood Pressure 95/66 O2 Sat by Pulse Oximetry 99 Oriented: Normal Eyes: Normal Ear: Normal Nose: Blood Throat: Normal Respiratory: Diminished Throughout Cardiovascular: Normal. negative: S3, S4, Murmur : Normal Auscultation: Bowel Sounds: Normal Palpation: Normal Tenderness: Normal Skin: Normal Musculoskeletal: Normal Psychiatric: Normal Mood Description: Calm Affect: Normal Speech Pattern: Clear - Assessment/Plan (1) Epistaxis, recurrent Status: Acute Plan: CONTINUE TO MONITOR (2) Hypotension Qualifiers: Hypotension type: unspecified hypotension type Qualified Code(s): I95.9 - Hypotension, unspecified Status: Acute Plan: NORMAL SALINE AT 125ML/HR, CONTINUE TO MONITOR (3) Abdominal pain Qualifiers: Abdominal location: generalized Qualified Code(s): R10.84 - Generalized abdominal pain Status: Acute - Allergies Allergies/Adverse Reactions: Allergies Allergy/AdvReac Type Severity Reaction Status Date / Time No Known Drug Allergies Allergy Verified 05/14/18 22:53
[2019-01-03] MEDS: FLOMAX PO SCH (20:19)
[2019-01-04] MEDS: NS 1000 ML 1,000 ML IV SCH ×2 (00:10→05:37)
[2019-01-04] MEDS: NORCO 10/325 TAB PO PRN ×3 (00:10→12:41)
[2019-01-04] MEDS: PHENERGAN INJ 25 MG IM PRN ×2 (02:05→11:04)
[2019-01-04] MEDS: DUONEB 0.5 MG/3 MG NEB PRN ×2 (04:29→13:00)
[2019-01-04 05:37] LABS: ALANINE AMINOTRANSFERASE 12 Units/L (12-78); ALBUMIN 2.6 g/dL (3.4-5.0); ALKALINE PHOSPHATASE 96 Units/L (46-116); ASPARTATE AMINO TRANSFERASE 13 Units/L (15-37); BLOOD UREA NITROGEN 5 mg/dL (7-18); CALCIUM 8.1 mg/dL (8.5-10.1); CARBON DIOXIDE 38.8 mmol/L (21-32); CHLORIDE 104 mmol/L (98-107); COR CA(FOR HYPOALB) 9.2 mg/dL (8.5-10.1); CREATININE 0.46 mg/dL (0.70-1.30); DIGOXIN 0.48 ng/mL (0.9-2); SODIUM 145 mmol/L (136-145); TOTAL PROTEIN 5.2 g/dL (6.4-8.2); eGFR NON BLACK RACES > 60 (>60)
[2019-01-04 05:40] LABS: BASOPHILS # (AUTO) 0.1 X10^3/uL (0.0-0.1); BASOPHILS % (AUTO) 0.8 % (0.2-1.0); EOSINOPHILS # (AUTO) 0.4 x10^3/uL (0.0-0.2); EOSINOPHILS % (AUTO) 4.1 % (0.9-2.9); HEMOGLOBIN 11.2 g/dL (13.5-18.0); LYMPHOCYTES # (AUTO) 2.8 X10^3/uL (1.3-2.9); LYMPHOCYTES % (AUTO) 31.8 % (21.0-51.0); MEAN CORPUSCULAR HEMOGLOBIN 29.7 pg (27.0-34.0); MEAN CORPUSCULAR HGB CONC 33.1 g/dL (33.0-35.0); MEAN CORPUSCULAR VOLUME 89.8 fL (80.0-100.0); MEAN PLATELET VOLUME 8.4 fL (7.4-11.0); MONOCYTES # (AUTO) 0.8 x10^3/uL (0.3-0.8); MONOCYTES % (AUTO) 9.5 % (0.0-13.0); NEUTROPHILS # (AUTO) 4.6 x10^3/uL (2.2-4.8); NEUTROPHILS % (AUTO) 53.8 % (42.0-75.0); PLATELET COUNT 258 X10^3/uL (150.0-450.0); RED BLOOD COUNT 3.79 X10^6/uL (4.7-6.0); RED CELL DISTRIBUTION WIDTH 15.9 % (11.6-16.5); WHITE BLOOD COUNT 8.6 X10^3/uL (3.6-10.0)
[2019-01-04 07:53] VITALS: BP 128/85
[2019-01-04] MEDS: MIRALAX POWDER (1 DOSE 17 G) PO SCH (09:03)
[2019-01-04] MEDS: LANOXIN PO SCH (09:03)
[2019-01-04] MEDS: DALIRESP PO SCH (09:03)
[2019-01-04] MEDS: COLACE CAP 100 MG PO SCH (09:03)
[2019-01-04] MEDS: MILK OF MAGNESIA PO SCH ×2 (09:03→12:41)
--- NOTE | 2019-01-04 11:43 | VAS ---
HISTORY: Bilateral edema Study: Venous Doppler Comparison: None TECHNIQUE: Multiple rider scale and color flow Doppler images of the deep venous system were obtained of the bilateral lower extremities FINDINGS: There is normal respiratory phasicity, compression and augmentation of the extremity veins without evidence of acute DVT. IMPRESSION: 1. Negative for DVT. Reported By:
--- NOTE | 2019-01-04 21:47 | PCM.PROG ---
Progress Note - Progress Note for Day of Date of Exam: 01/03/19 - Subjective Subjective: WAS ADMITTED FOR EPISTAXIX, HYPOTENSION, AND ABDOMINAL PAIN. TODAY, HE IS ALERT AND ORIENTED, LYING IN BED ON MORNING ROUNDS. HE DENIES ANY NOSEBLEEDS SINCE ADMISSION. HE REPORTS WEAKNESS AND SHORTNESS OF BREATH TODAY. ON EXAMINATION, HEART IS REGULAR IN RATE AND RHYTHM. BILATERAL LUNGS ARE NOTED WITH DIMINISHED LUNG SOUNDS THROUGHOUT. ABDOMEN IS ROUND, SOFT, AND NON- TENDER WITH NORMAL BOWEL SOUNDS NOTED IN ALL QUADRANTS. HIS VITALS THIS MORNING ARE 99.5-95-20-95%-132/73. LABS WERE OBTAINED. ABNORMAL LAB VALUES INCLUDE THE FOLLOWING: RBC 4.15, HGB 12.0, HCT 37.6, CARBON DIOXIDE 37.5, CREATININE 0.48, AST 13, ALT 11, TOTAL PROTEIN 6.2, ALBUMIN 2.8, DIGOXIN 0.70. HE HAS BEEN TAKING XARELTO 20 PO DAILY FOR TREATMENT OF PULMONARY EMBOLISM. TODAY, WE WILL OBTAIN A CHEST CTA AND A SINUS CT. OTHERWISE, WE PLAN TO FOLLOW UP WITH AM LABS AND CONTINUE TO MONITOR. - Past Medical Family Social History Past Med/Fam/Surg Hx: No changes since H&P Allergies: Allergies No Known Drug Allergies Allergy (Verified 05/14/18 22:53) - Review of Systems ROS: No change since H&P - Vital Signs and I&O's Vital Signs: Temperature 98.0 F Pulse Rate [Left Radial] 93 Pulse Rate [Right Radial] 106 Pulse Rate 99 Respiratory Rate 22 Blood Pressure [Left Arm] 128/85 Blood Pressure [Right Arm] 114/79 Blood Pressure 95/66 O2 Sat by Pulse Oximetry 99 Intake and Output: Intake & Output 01/02/19 01/03/19 01/04/19 01/05/19 11:59 11:59 11:59 11:59 Intake Total 2120 / 2120 4100 / 4100 Output Total 1750 / 1750 5335 / 5335 Balance 370 / 370 -1235 / -1235 - Physical Exam Oriented: Normal Eyes: Normal Ear: Normal Nose: Blood Throat: Normal Respiratory: Generalized, Diminished Cardiovascular: Normal. negative: S3, S4, Murmur : Normal Auscultation: Bowel Sounds: Normal Palpation: Normal Tenderness: Normal Skin: Normal Musculoskeletal: Normal Psychiatric: Normal Mood Description: Calm Affect: Normal Speech Pattern: Clear, Appropriate - Laboratory and Diagnostics Result Diagrams: 01/04/19 04:57 01/04/19 04:57 Labs: Laboratory WBC 8.6 X10^3/uL (3.6-10.0) 01/04/19 04:57 RBC 3.79 X10^6/uL (4.7-6.0) L 01/04/19 04:57 Hgb 11.2 g/dL (13.5-18.0) L 01/04/19 04:57 Hct 34.0 % (42.0-54.0) L 01/04/19 04:57 MCV 89.8 fL (80.0-100.0) 01/04/19 04:57 MCH 29.7 pg (27.0-34.0) 01/04/19 04:57 MCHC 33.1 g/dL (33.0-35.0) 01/04/19 04:57 RDW 15.9 % (11.6-16.5) 01/04/19 04:57 Plt Count 258 X10^3/uL (150.0-450.0) 01/04/19 04:57 MPV 8.4 fL (7.4-11.0) 01/04/19 04:57 Neut % (Auto) 53.8 % (42.0-75.0) 01/04/19 04:57 Lymph % (Auto) 31.8 % (21.0-51.0) 01/04/19 04:57 [place] % (Auto) 9.5 % (0.0-13.0) 01/04/19 04:57 Eos % (Auto) 4.1 % (0.9-2.9) H 01/04/19 04:57 Baso % (Auto) 0.8 % (0.2-1.0) 01/04/19 04:57 Neut # (Auto) 4.6 x10^3/uL (2.2-4.8) 01/04/19 04:57 Lymph # (Auto) 2.8 X10^3/uL (1.3-2.9) 01/04/19 04:57 [place] # (Auto) 0.8 x10^3/uL (0.3-0.8) 01/04/19 04:57 Eos # (Auto) 0.4 x10^3/uL (0.0-0.2) H 01/04/19 04:57 Baso # (Auto) 0.1 X10^3/uL (0.0-0.1) 01/04/19 04:57 Absolute Nucleated RBC 0.1 /100WBC 01/04/19 04:57 INR Target Range - 01/03/19 04:03 INR 1.12 (0.8-1.3) 01/03/19 04:03 APTT 40.7 SECONDS (22.9-36.5) H 01/03/19 04:03 PTT Comment - 01/03/19 04:03 Sodium 145 mmol/L (136-145) 01/04/19 04:57 Corrected Sodium TNP 01/04/19 04:57 Potassium 3.8 mmol/L (3.5-5.1) 01/04/19 04:57 Chloride 104 mmol/L (98-107) 01/04/19 04:57 Carbon Dioxide 38.8 mmol/L (21-32) H 01/04/19 04:57 BUN 5 mg/dL (7-18) L 01/04/19 04:57 Creatinine 0.46 mg/dL (0.70-1.30) L 01/04/19 04:57 Est GFR (MDRD) Af Amer > 60 (>60) 01/04/19 04:57 Est GFR (MDRD) Non-Af > 60 (>60) 01/04/19 04:57 Glucose 96 mg/dL (65-99) 01/04/19 04:57 Calcium 8.1 mg/dL (8.5-10.1) L 01/04/19 04:57 Corrected Calcium 9.2 mg/dL (8.5-10.1) 01/04/19 04:57 Total Bilirubin 0.10 mg/dL (0.2-1.0) L 01/04/19 04:57 AST 13 Units/L (15-37) L 01/04/19 04:57 ALT 12 Units/L (12-78) 01/04/19 04:57 Alkaline Phosphatase 96 Units/L (46-116) 01/04/19 04:57 Creatine Kinase Cancelled 01/02/19 13:05 CK-MB (CK-2) Cancelled 01/02/19 13:05 CK/CKMB % Calc Cancelled 01/02/19 13:05 Troponin I Cancelled 01/02/19 13:05 Total Protein 5.2 g/dL (6.4-8.2) L 01/04/19 04:57 Albumin 2.6 g/dL (3.4-5.0) L 01/04/19 04:57 Globulin 2.6 g/dL (2.5-4.5) 01/04/19 04:57 Albumin/Globulin Ratio 1.0 Ratio (1.1-2.1) L 01/04/19 04:57 Triglycerides 41 mg/dL (0-150) 01/03/19 04:03 Cholesterol 109 mg/dL (0-200) 01/03/19 04:03 LDL Cholesterol, Calc 58 mg/dL (0-100) 01/03/19 04:03 HDL Cholesterol 43 mg/dL (40-60) 01/03/19 04:03 Cholesterol/HDL Ratio 2.5 (0.0-5.0) 01/03/19 04:03 Amylase 44 Units/L (25-115) 01/02/19 13:05 Lipase 105 Units/L (73-393) 01/02/19 13:05 Digoxin 0.48 ng/mL (0.9-2) L 01/04/19 04:57 - Plan (1) Epistaxis, recurrent Status: Acute Plan: SINUS CT, CONTINUE TO MONITOR (2) Hypotension Status: Acute Qualifiers: Hypotension type: unspecified hypotension type Qualified Code(s): I95.9 - Hypotension, unspecified Plan: NORMAL SALINE AT 125ML/HR, CONTINUE TO MONITOR (3) Abdominal pain Status: Acute Qualifiers: Abdominal location: generalized Qualified Code(s): R10.84 - Generalized abdominal pain (4) History of pulmonary embolus (PE) Status: Acute Plan: OBTAIN CHEST CTA
== END 2019-01-04 13:11 | disposition home or self-care (01) | DRG 151 ==
LOC: ER 12:08 → MED/SURG 12:08
PROVIDERS: ADMIT Internal Medicine; ATTEND Internal Medicine
DX: I25.10 Atherosclerotic heart disease of native coronary artery without angina pectoris; I48.91 Unspecified atrial fibrillation; I95.89 Other hypotension; R79.82 Elevated C-reactive protein (CRP); R04.0 Epistaxis; R79.1 Abnormal coagulation profile; K21.9 Gastro-esophageal reflux disease without esophagitis; Z86.711 Personal history of pulmonary embolism; J44.9 Chronic obstructive pulmonary disease, unspecified; R10.84 Generalized abdominal pain; I10 Essential (primary) hypertension; Z79.01 Long term (current) use of anticoagulants
CPT/HCPCS: 36415; 70486; 71275; 74022; 80053; 80061; 80162; 82150; 83690; 85025; 85610; 85730; 93005; 93970; 94640; 94760; 96374; 96375; 99284; A4222; G0378; J2175; J2405; J2550; J7030; J7050; J7613; J7620

== ENCOUNTER 2019-01-16 12:48 | Inpatient (IN) ==
[2019-01-16] MEDS ORDERED: ZOFRAN INJ 4 MG VIAL ONE (12:57)
[2019-01-16] MEDS ORDERED: ZOFRAN INJ 4 MG VIAL IVP ONE (12:59)
[2019-01-16 13:04] VITALS: BMI 27.2
[2019-01-16] MEDS ORDERED: DUONEB 0.5 MG/3 MG ONE (13:04)
[2019-01-16 13:32] LABS: BASOPHILS # (AUTO) 0.1 X10^3/uL (0.0-0.1); BASOPHILS % (AUTO) 1.3 % (0.2-1.0); EOSINOPHILS # (AUTO) 0.1 x10^3/uL (0.0-0.2); EOSINOPHILS % (AUTO) 1.1 % (0.9-2.9); HEMATOCRIT 42.1 % (42.0-54.0); HEMOGLOBIN 14.1 g/dL (13.5-18.0); LYMPHOCYTES # (AUTO) 2.2 X10^3/uL (1.3-2.9); LYMPHOCYTES % (AUTO) 29.6 % (21.0-51.0); MEAN CORPUSCULAR HEMOGLOBIN 29.8 pg (27.0-34.0); MEAN CORPUSCULAR HGB CONC 33.5 g/dL (33.0-35.0); MEAN PLATELET VOLUME 7.8 fL (7.4-11.0); MONOCYTES # (AUTO) 0.6 x10^3/uL (0.3-0.8); MONOCYTES % (AUTO) 7.6 % (0.0-13.0); NEUTROPHILS # (AUTO) 4.5 x10^3/uL (2.2-4.8); NEUTROPHILS % (AUTO) 60.4 % (42.0-75.0); PLATELET COUNT 240 X10^3/uL (150.0-450.0); RED BLOOD COUNT 4.73 X10^6/uL (4.7-6.0); RED CELL DISTRIBUTION WIDTH 16.1 % (11.6-16.5); WHITE BLOOD COUNT 7.5 X10^3/uL (3.6-10.0)
[2019-01-16] MEDS ORDERED: DUONEB 0.5 MG/3 MG NEB ONE (13:33)
--- NOTE | 2019-01-16 13:43 | DR.SOBA ---
HPI Time Seen Time Seen by Provider: 01/16/19 13:32 Complaints Chief Complaint Doctors Comments: 58 yo male who presents for SOB and chest pain. 48 hr duration constant, felt like chest was on "fire", under left pec. He has pMHx of Afib/COPD/CHF. He states that nothing has helped. He complains of SOB for two days also, increased exertional dsypnea, increase production of cough with greenish sputum. Chief Complaint:: PT C/O CHEST PAIN, SOB, AND NAUSEA. PT STATES HE HAS BEEN HAVING THESE ISSUES FOR THE PAST TWO DAYS THEY ARE ONLY GETTING WORSE. Source History Provided: Patient and Family Member ( ) Mode of Arrival Mode of Arrival: EMS Timing Onset of Chief Complaint: 01/14/19 If Cough Cough: Productive PMH PMH Past Medical History: Yes Past Medical History: CHF, COPD, Coronary Artery Disease, GERD and Hypertension Past Medical History Comment: EMPHYSEMA Past Surgical History: Yes Surgical History: Ortho Surgery Family History History of Family Medical Conditions: Yes Family Medical History: Coronary Artery Disease, Heart Failure and Hypertension Social History Does patient currently use any type of tobacco product: Yes Have you used tobacco products in the last 12 months: Yes Type of Tobacco Use: Cigarettes Does any household member use tobacco: Yes Alcohol Use: None Do you use any recreational Drugs:: No Lives With: Family Lives Where: Home infectious screening In the last 2 months have you had wt loss of >10#?: NO Have you had fever, night sweats or hemotysis?: No Have you traveled outside the country in the last 6 months?: No Isolation: Standard ROS Review of Systems Constitutional: No Symptoms Reported Eyes: No Symptoms Reported ENTM: No Symptoms Reported Respiratoy: Productive Cough and Short of Breath Cardiovascular: Chest Pain and Palpitations Gastrointestinal/Abdominal: No Symptoms Reported Genitourinary: No Symptoms Reported Neurological: No Symptoms Reported Musculoskeletal: No Symptoms Reported Integumentary: No Symptoms Reported PE Vital Signs Vitals: Temperature 99.0 F Pulse Rate [Right Radial] 79 Pulse Rate 85 Respiratory Rate 18 Blood Pressure [Left Arm] 103/67 Blood Pressure [Right Arm] 126/66 Blood Pressure 150/104 O2 Sat by Pulse Oximetry 96 Head Head Exam: Normal Inspection, Atraumatic and Normocephalic Eyes Eye exam: Normal Appearance, PERRL and EOMI ENT ENT Exam: Normal Exam and Normal Oropharynx Neck Neck Exam: Normal Inspection and Full ROM Chest Chest Inspection: Normal Inspection; negative Tenderness Respiratory Respiratory Exam: Bilateral: Wheezing and Bilateral: Rales Cardiovascular Cardiovascular Exam: Regular Rate and Irregular Rhythm Abdominal Exam Abdominal Exam: Normal Inspection, Normal Bowel Sounds and Soft Extremities Extremities Exam: Normal Inspection and Full ROM; negative Edema Back Back Exam: Normal Inspection and Full ROM Neurologic Neurological Exam: Alert, Oriented X3, CN II-XII Intact and Normal Gait Skin Skin Exam: Warm, Dry, Intact and Normal Color COURSE Treatment Treatment: Dounebs/ IVF's Reevaluation 1st: Unchanged (13:00 patient sitting in bed, spoke) 2nd: Improved 3rd: Improved (resting in bed 14:59) Consultation Called: 14:57 Call Returned: 14:57 Consultation Comments: Dr. Londono accepted the admission Education/Counseling Education/Counseling: Patient, Family, Education and Counseling Educated On: Treatment, Diagnosis, Prognosis, Needs for Follow Up and Other ROR Labs Reviewed Result Diagrams: 01/17/19 04:04 01/17/19 04:04 Laboratory: 01/16/19 15:47 Sputum - Expectorated Sputum Sputum Culture - Preliminary 01/16/19 15:47 Sputum - Expectorated Sputum - Final WBC 7.5 X10^3/uL (3.6-10.0) 01/17/19 04:04 RBC 4.27 X10^6/uL (4.7-6.0) L 01/17/19 04:04 Hgb 12.8 g/dL (13.5-18.0) L 01/17/19 04:04 Hct 37.8 % (42.0-54.0) L 01/17/19 04:04 MCV 88.7 fL (80.0-100.0) 01/17/19 04:04 MCH 30.0 pg (27.0-34.0) 01/17/19 04:04 MCHC 33.9 g/dL (33.0-35.0) 01/17/19 04:04 RDW 16.1 % (11.6-16.5) 01/17/19 04:04 Plt Count 228 X10^3/uL (150.0-450.0) 01/17/19 04:04 MPV 8.8 fL (7.4-11.0) 01/17/19 04:04 Neut % (Auto) 85.9 % (42.0-75.0) H 01/17/19 04:04 Lymph % (Auto) 11.3 % (21.0-51.0) L 01/17/19 04:04 [place] % (Auto) 2.4 % (0.0-13.0) 01/17/19 04:04 Eos % (Auto) 0.0 % (0.9-2.9) L 01/17/19 04:04 Baso % (Auto) 0.4 % (0.2-1.0) 01/17/19 04:04 Neut # (Auto) 6.5 x10^3/uL (2.2-4.8) H 01/17/19 04:04 Lymph # (Auto) 0.9 X10^3/uL (1.3-2.9) L 01/17/19 04:04 [place] # (Auto) 0.2 x10^3/uL (0.3-0.8) L 01/17/19 04:04 Eos # (Auto) 0.0 x10^3/uL (0.0-0.2) 01/17/19 04:04 Baso # (Auto) 0.0 X10^3/uL (0.0-0.1) 01/17/19 04:04 Absolute Nucleated RBC 0.0 /100WBC 01/17/19 04:04 INR Target Range - 01/16/19 13:17 INR 2.11 (0.8-1.3) H 01/16/19 13:17 APTT 60.3 SECONDS (22.9-36.5) H 01/16/19 13:17 PTT Comment - 01/16/19 13:17 D-Dimer 159 ng/mL (0-400) 01/16/19 13:17 Sample Site Rr 01/17/19 09:10 ABG pH 7.420 (7.35-7.45) 01/17/19 09:10 ABG pCO2 54.0 mmHg (35.0-45.0) H* 01/17/19 09:10 ABG pO2 42.0 mmHg (80.0-100.0) L* 01/17/19 09:10 ABG HCO3 35.0 mmol/L (22-26) H* 01/17/19 09:10 ABG O2 Saturation 79.0 % (90-100) L* 01/17/19 09:10 ABG Base Excess 8.8 mmol/L (-2.0-2.0) H 01/17/19 09:10 Alexei Test Pos 01/17/19 09:10 A-a Gradient 40.0 mmHg 01/17/19 09:10 FiO2 21.0 01/17/19 09:10 Blood Gas Comments Pt starr well. cdn 01/17/19 09:10 Sodium 136 mmol/L (136-145) 01/17/19 04:04 Corrected Sodium 137 mmol/L (136-145) 01/17/19 04:04 Potassium 3.9 mmol/L (3.5-5.1) 01/17/19 04:04 Chloride 99 mmol/L (98-107) 01/17/19 04:04 Carbon Dioxide 31.1 mmol/L (21-32) 01/17/19 04:04 BUN 12 mg/dL (7-18) 01/17/19 04:04 Creatinine 0.58 mg/dL (0.70-1.30) L 01/17/19 04:04 Est GFR (MDRD) Af Amer > 60 (>60) 01/17/19 04:04 Est GFR (MDRD) Non-Af > 60 (>60) 01/17/19 04:04 Glucose 131 mg/dL (65-99) H 01/17/19 04:04 Calcium 8.3 mg/dL (8.5-10.1) L 01/17/19 04:04 Corrected Calcium 9.3 mg/dL (8.5-10.1) 01/17/19 04:04 Magnesium 2.0 mg/dL (1.7-2.9) 01/16/19 13:17 Total Bilirubin 0.20 mg/dL (0.2-1.0) 01/17/19 04:04 AST 11 Units/L (15-37) L 01/17/19 04:04 ALT 10 Units/L (12-78) L 01/17/19 04:04 Alkaline Phosphatase 78 Units/L (46-116) 01/17/19 04:04 Creatine Kinase 60 Units/L (39-308) 01/17/19 04:04 CK-MB (CK-2) 2.5 ng/mL (0-4.0) 01/17/19 04:04 CK/CKMB % Calc 4.2 % (<4) 01/17/19 04:04 Troponin I < 0.02 ng/mL (0-1.5) 01/17/19 04:04 B-Natriuretic Peptide 217 pg/mL (0-79) H 01/16/19 13:17 Total Protein 6.4 g/dL (6.4-8.2) 01/17/19 04:04 Albumin 2.8 g/dL (3.4-5.0) L 01/17/19 04:04 Globulin 3.6 g/dL (2.5-4.5) 01/17/19 04:04 Albumin/Globulin Ratio 0.8 Ratio (1.1-2.1) L 01/17/19 04:04 Triglycerides 51 mg/dL (0-150) 01/17/19 04:04 Cholesterol 120 mg/dL (0-200) 01/17/19 04:04 LDL Cholesterol, Calc 67 mg/dL (0-100) 01/17/19 04:04 HDL Cholesterol 43 mg/dL (40-60) 01/17/19 04:04 Cholesterol/HDL Ratio 2.8 (0.0-5.0) 01/17/19 04:04 Specimen Type Clean catch urine 01/17/19 01:13 Urine Color Yellow (YELLOW) 01/17/19 01:13 Urine Appearance Clear (CLEAR) 01/17/19 01:13 Urine pH 6.5 (5.0 - 8.0) 01/17/19 01:13 Ur Specific [place] 1.005 (1.000-1.030) 01/17/19 01:13 Urine Protein 1+ (NEGATIVE) 01/17/19 01:13 Urine Glucose (UA) 1+ (NEGATIVE) 01/17/19 01:13 Urine Ketones Negative (NEGATIVE) 01/17/19 01:13 Urine Occult Blood Negative (NEGATIVE) 01/17/19 01:13 Urine Nitrite Negative (NEGATIVE) 01/17/19 01:13 Urine Bilirubin Negative (NEGATIVE) 01/17/19 01:13 Urine Urobilinogen Normal (NORMAL) 01/17/19 01:13 Ur Leukocyte Esterase Negative (NEGATIVE) 01/17/19 01:13 Urine RBC None seen /HPF (NONE SEEN) 01/17/19 01:13 Urine WBC None seen /HPF (NONE SEEN) 01/17/19 01:13 Ur Squamous Epith Cells Few /HPF (NEGATIVE) 01/17/19 01:13 Urine Bacteria Negative /HPF (NEGATIVE) 01/17/19 01:13 Ur Culture Indicated? No/not indicated 01/17/19 01:13 Digoxin 0.55 ng/mL (0.9-2) L 01/17/19 04:04 Opioid Opioid Risk Tool Age (Bong box if 16-45): Yes Total: 1 Total Score Risk Category: Low Risk Copyright: [facility] predicting aberrant behaviors Diagnosis Discharge Problem: Acute exacerbation of chronic obstructive pulmonary disease (COPD), ACS (acute coronary syndrome) Narrative Support Text: Exetnsive cardiac hx and COPD with > 40pack years, on home 02. Admitted to Dr. Londono for COPD exacerbation and ACS r/o. Time was spent educating and discussing care plan with patient. All diagnostic imaging, lab values, consult input was share and explained to patient. Time was spent answering all patient question. The patient agreed and stated understanding of care plan. Instructions Forms: Excuse From Work
[2019-01-16 13:50] LABS: BLOOD UREA NITROGEN 4 mg/dL (7-18); CALCIUM 8.7 mg/dL (8.5-10.1); CARBON DIOXIDE 34.4 mmol/L (21-32); CHLORIDE 101 mmol/L (98-107); CREATININE 0.55 mg/dL (0.70-1.30); SODIUM 140 mmol/L (136-145); TROPONIN I < 0.02 ng/mL (0-1.5); eGFR NON BLACK RACES > 60 (>60)
[2019-01-16 13:55] LABS: ALANINE AMINOTRANSFERASE 12 Units/L (12-78); ALBUMIN 3.5 g/dL (3.4-5.0); ALKALINE PHOSPHATASE 83 Units/L (46-116); ASPARTATE AMINO TRANSFERASE 16 Units/L (15-37); CKMB % 4.9 % (<4); CREATINE KINASE 71 Units/L (39-308); CREATINE KINASE MB 3.5 ng/mL (0-4.0); TOTAL PROTEIN 7.4 g/dL (6.4-8.2)
--- NOTE | 2019-01-16 14:24 | RAD ---
HISTORY: Chest pain, shortness of breath and nausea. Symptoms for 2 days. Prior history of COPD, emphysema and atrial fibrillation. Study: Single-view chest Comparison: 11/24/2018. Findings: Trachea is midline. Heart size is normal. There is aortic uncoiling. There is hyperinflation of the lungs with increased interstitial markings bilaterally, unchanged from prior studies. Findings have the appearance of COPD. No consolidation, CHF, pleural fluid or pneumothorax is seen. There is evidence of lower cervical spine surgery with metallic plate and screws present. No acute osseous changes are seen. IMPRESSION: COPD without acute cardiopulmonary disease. Reported By:
[2019-01-16] MEDS ORDERED: SOLU-Medrol 125 MG VIAL IVP ONE (14:36)
[2019-01-16] MEDS ORDERED: NITROSTAT SL PRN (15:04)
[2019-01-16] MEDS ORDERED: SOLU-Medrol 125 MG VIAL ONE (15:20)
[2019-01-16] MEDS: ASPIRIN PO SCH (16:07)
[2019-01-16] MEDS ORDERED: ZOFRAN INJ 4 MG VIAL IVP PRN (17:46)
[2019-01-16] MEDS: DUONEB 0.5 MG/3 MG NEB SCH ×2 (17:56→21:03)
[2019-01-16] MEDS: ZOFRAN INJ 4 MG VIAL IVP PRN (18:15)
[2019-01-16 20:09] LABS: CKMB % 5.2 % (<4); CREATINE KINASE 65 Units/L (39-308); CREATINE KINASE MB 3.4 ng/mL (0-4.0); TROPONIN I < 0.02 ng/mL (0-1.5)
[2019-01-16] MEDS: NORCO 5/325 MG TAB PO PRN (20:13)
[2019-01-16] MEDS: PULMICORT NEB TX 0.5 MG NEB SCH (21:03)
[2019-01-16] MEDS ORDERED: PEPCID 20 MG IV PREMIX* 50 ML IV PRN (23:53)
[2019-01-17] MEDS ORDERED: NS 250 ML IV 250 ML ONE ×2 (00:11→07:19)
[2019-01-17] MEDS: ZOFRAN INJ 4 MG VIAL IVP PRN ×2 (00:15→18:28)
[2019-01-17] MEDS: PEPCID 20 MG IV PREMIX* 20 MG/50 ML BAG IV SCH ×3 (00:19→20:34)
[2019-01-17] MEDS: DUONEB 0.5 MG/3 MG NEB SCH ×5 (00:22→16:59)
[2019-01-17 01:33] LABS: BILIRUBIN,URINE NEGATIVE (NEGATIVE); BLOOD/HEMOGLOBIN,URINE NEGATIVE (NEGATIVE); GLUCOSE, URINE 1+ (NEGATIVE); KETONES,URINE NEGATIVE (NEGATIVE); LEUKOCYTE ESTERASE ,URINE NEGATIVE (NEGATIVE); NITRITES,URINE NEGATIVE (NEGATIVE); PH,URINE 6.5 (5.0 - 8.0); PROTEIN,URINE 1+ (NEGATIVE); UROBILINOGEN,URINE NORMAL (NORMAL)
[2019-01-17 01:50] LABS: APPEARANCE,URINE CLEAR (CLEAR); COLOR,URINE YELLOW (YELLOW)
[2019-01-17 01:51] LABS: BACTERIA,URINE NEGATIVE /HPF (NEGATIVE); RBC,URINE NONE SEEN /HPF (NONE SEEN); SQUAMOUS EPITHELIAL CELL,UR FEW /HPF (NEGATIVE)
[2019-01-17] MEDS: NORCO 5/325 MG TAB PO PRN ×2 (01:58→07:25)
[2019-01-17 02:05] LABS: CKMB % 4.7 % (<4); CREATINE KINASE 62 Units/L (39-308); CREATINE KINASE MB 2.9 ng/mL (0-4.0); TROPONIN I < 0.02 ng/mL (0-1.5)
[2019-01-17 05:26] LABS: BASOPHILS % (AUTO) 0.4 % (0.2-1.0); HEMATOCRIT 37.8 % (42.0-54.0); HEMOGLOBIN 12.8 g/dL (13.5-18.0); LYMPHOCYTES # (AUTO) 0.9 X10^3/uL (1.3-2.9); LYMPHOCYTES % (AUTO) 11.3 % (21.0-51.0); MEAN CORPUSCULAR HGB CONC 33.9 g/dL (33.0-35.0); MEAN CORPUSCULAR VOLUME 88.7 fL (80.0-100.0); MEAN PLATELET VOLUME 8.8 fL (7.4-11.0); MONOCYTES # (AUTO) 0.2 x10^3/uL (0.3-0.8); MONOCYTES % (AUTO) 2.4 % (0.0-13.0); NEUTROPHILS # (AUTO) 6.5 x10^3/uL (2.2-4.8); NEUTROPHILS % (AUTO) 85.9 % (42.0-75.0); PLATELET COUNT 228 X10^3/uL (150.0-450.0); RED BLOOD COUNT 4.27 X10^6/uL (4.7-6.0); RED CELL DISTRIBUTION WIDTH 16.1 % (11.6-16.5); WHITE BLOOD COUNT 7.5 X10^3/uL (3.6-10.0)
[2019-01-17 05:39] LABS: ALANINE AMINOTRANSFERASE 10 Units/L (12-78); ALBUMIN 2.8 g/dL (3.4-5.0); ALKALINE PHOSPHATASE 78 Units/L (46-116); ASPARTATE AMINO TRANSFERASE 11 Units/L (15-37); BLOOD UREA NITROGEN 12 mg/dL (7-18); CALCIUM 8.3 mg/dL (8.5-10.1); CARBON DIOXIDE 31.1 mmol/L (21-32); CHLORIDE 99 mmol/L (98-107); CHOL/HDL RATIO 2.8 (0.0-5.0); CHOLESTEROL 120 mg/dL (0-200); COR CA(FOR HYPOALB) 9.3 mg/dL (8.5-10.1); COR NA(FOR HYPERGLY) 137 mmol/L (136-145); CREATININE 0.58 mg/dL (0.70-1.30); HDL CHOLESTEROL 43 mg/dL (40-60); SODIUM 136 mmol/L (136-145); TOTAL PROTEIN 6.4 g/dL (6.4-8.2); TRIGLYCERIDES 51 mg/dL (0-150); eGFR NON BLACK RACES > 60 (>60)
[2019-01-17] MEDS: ASPIRIN PO SCH (08:01)
[2019-01-17] MEDS: LEVAQUIN PREMIX IV 750 MG 750 MG/150 ML BAG IV SCH (08:01)
[2019-01-17] MEDS: PULMICORT NEB TX 0.5 MG NEB SCH (08:17)
[2019-01-17] MEDS ORDERED: NORCO 10/325 TAB PO PRN (09:01)
[2019-01-17 09:30] LABS: ABG BASE EXCESS 8.8 mmol/L (-2.0-2.0)
[2019-01-17 09:33] LABS: ABG ALLEN TEST POS
[2019-01-17] MEDS ORDERED: LEXAPRO ONE (09:53)
[2019-01-17] MEDS ORDERED: ZANTAC PO SCH (10:00)
[2019-01-17] MEDS ORDERED: MORPHINE SULFATE JET NEB NEB ONE (10:06)
[2019-01-17] MEDS: MORPHINE SULFATE INJ 2 MG INJ IVP PRN ×2 (10:10→16:34)
[2019-01-17] MEDS: CARDIZEM CD 180 MG PO SCH (10:13)
[2019-01-17] MEDS: LEXAPRO PO SCH (10:13)
[2019-01-17] MEDS: XARELTO PO SCH (10:14)
[2019-01-17] MEDS: DALIRESP PO SCH (10:14)
[2019-01-17] MEDS: COREG TAB 25 MG PO SCH ×2 (10:14→20:35)
[2019-01-17] MEDS: LANOXIN PO SCH (10:15)
--- NOTE | 2019-01-17 11:46 | DR.H&P ---
H&P - History & Physical for Day of: H&P Date: 01/16/19 - Chief Complaint Chief Complaint: chest pain, sob - History of Present Illness History of Present Illness: 58 yo male Er admission who presents for SOB and chest pain. 48 hr duration constant, felt like chest was on "fire", under left pec. He has pMHx of Afib/COPD/CHF. He states that nothing has helped. PT REPORST HE WAS SEEN EARLIER IN THE WEEK BY PCP AND GIVEN ANTIBIOTICS FOR 2-3 DAYS HE HAD TAKEN WITHOUT IMPROVEMENT. PT ADMITTED FOR TREATMENT AND EVALUATION OF ACUTE ILLNESS - Past Medical History Past Medical History: Arthritis, CHF, COPD, Coronary Artery Disease, Dyslipidemia, GERD, Hypertension - Past Surgical History Surgical History: Cholecystectomy, Ortho Surgery, Tonsillectomy, Other - Family History Family Medical History: Sudden Cardiac - Social History Does patient currently use any type of tobacco product: Yes Have you used tobacco products in the last 12 months: Yes Type of Tobacco Use: Cigarettes How many years tobacco product used: 45 Does any household member use tobacco: No Alcohol Use: Occasionally Drug Use: Prescription Drugs - Medications Home Medications: No Known Drug Allergies Allergy (Verified 05/14/18 22:53) CONTINUE taking the following medications docusate sodium 100 mg PO BID 01/16/19 [History] escitalopram oxalate 10 mg PO QDAY 01/16/19 [History] hydrocodone-acetaminophen 1 tab PO QID PRN 01/16/19 [History] - Review of Systems Constitutional: Weakness Eyes: No Symptoms Reported ENT: No Symptoms Reported Respiratory: Cough, Shortness of Breath, SOB with Excertion, Wheezing Cardiovascular: Chest Pain Gastrointestinal: Nausea, Abdominal Pain (EPIGASTRIC) Genitourinary: No Symptoms Reported Musculoskeletal: Back Pain Skin: No Symptoms Reported Neurological: No Symptoms Reported - Physical Exam Vital Signs: Temperature 98.5 F Pulse Rate [Right Radial] 73 Pulse Rate 73 Respiratory Rate 20 Blood Pressure [Left Arm] 132/85 Blood Pressure [Right Arm] 126/66 Blood Pressure 150/104 O2 Sat by Pulse Oximetry 94 Oriented: Normal Eyes: Normal Ear: Normal Nose: Normal Throat: Normal Respiratory: Wheezes Throughout, RLL Diminished, LLL Diminished Cardiovascular: Irregular. negative: Edema : Normal Auscultation: Bowel Sounds: Normal Palpation: Normal Tenderness: Epigastric, Mild Skin: Decreased Turgur Musculoskeletal: Back:Lumbar Psychiatric: Anxiety Affect: Anxious Speech Pattern: Clear, Appropriate - Assessment/Plan (1) SOB (shortness of breath) Status: Acute Plan: ADMIT, SERIAL CE AND EKG. ADMISSION CXR, ABG ON ADMISSION. RESP CONSULT WITH SUPPLEMENTAL O2, DUO NEBS. VERIFY HOME MEDICATION, CONTINUOUS CARDIAC MONITORING. BP AND LIPID CONTROL, ANTICOAGULANT THERAPY, PT/INR (2) Chest pain Status: Acute (3) CHF (congestive heart failure) Status: Acute (4) Afib Status: Acute (5) COPD (chronic obstructive pulmonary disease) with emphysema Qualifiers: Status: Acute - Allergies Allergies/Adverse Reactions: Allergies Allergy/AdvReac Type Severity Reaction Status Date / Time No Known Drug Allergies Allergy Verified 05/14/18 22:53
--- NOTE | 2019-01-17 11:50 | PCM.PROG ---
Progress Note - Progress Note for Day of Date of Exam: 01/17/19 - Subjective Subjective: 58 WM ER ADMISSION WITH CO SOB. PT HAS PMH OF AFIB, CAD, CHF, OA, HTN. PT CO EPIGASTRIC PAIN THIS AM, CONTINUES WITH CO SOB. PT HAD DIFFUSE EXPIRATORY WHEEZES AND BILATERAL DIMINISHED LUNG BASES. ABG OBTAINED THIS AM. PLAN TO CONTINUED WITH TREATMENT OF COPD WITH ACUTE AB AND CARDIAC MONITORING - Past Medical Family Social History Past Med/Fam/Surg Hx: No changes since H&P Allergies: Allergies No Known Drug Allergies Allergy (Verified 05/14/18 22:53) - Review of Systems ROS: No change since H&P - Vital Signs and I&O's Vital Signs: Temperature 98.5 F Pulse Rate [Right Radial] 73 Pulse Rate 73 Respiratory Rate 20 Blood Pressure [Left Arm] 132/85 Blood Pressure [Right Arm] 126/66 Blood Pressure 150/104 O2 Sat by Pulse Oximetry 94 Intake and Output: Intake & Output 01/14/19 01/15/19 01/16/19 01/17/19 11:59 11:59 11:59 11:59 Intake Total 1710 / 1710 Output Total 1450 / 1450 Balance 260 / 260 - Physical Exam Oriented: Normal Eyes: Normal Ear: Normal Nose: Normal Throat: Normal Respiratory: Diminished, Wheezes Cardiovascular: Irregular. negative: Edema : Normal Auscultation: Bowel Sounds: Normal Tenderness: Epigastric, Mild Skin: Decreased Turgur Musculoskeletal: Back:Lumbar Psychiatric: Anxiety Affect: Anxious Speech Pattern: Clear, Appropriate - Laboratory and Diagnostics Result Diagrams: 01/17/19 04:04 01/17/19 04:04 Labs: 01/16/19 15:47 Sputum - Expectorated Sputum Sputum Culture - Preliminary 01/16/19 15:47 Sputum - Expectorated Sputum - Final Laboratory WBC 7.5 X10^3/uL (3.6-10.0) 01/17/19 04:04 RBC 4.27 X10^6/uL (4.7-6.0) L 01/17/19 04:04 Hgb 12.8 g/dL (13.5-18.0) L 01/17/19 04:04 Hct 37.8 % (42.0-54.0) L 01/17/19 04:04 MCV 88.7 fL (80.0-100.0) 01/17/19 04:04 MCH 30.0 pg (27.0-34.0) 01/17/19 04:04 MCHC 33.9 g/dL (33.0-35.0) 01/17/19 04:04 RDW 16.1 % (11.6-16.5) 01/17/19 04:04 Plt Count 228 X10^3/uL (150.0-450.0) 01/17/19 04:04 MPV 8.8 fL (7.4-11.0) 01/17/19 04:04 Neut % (Auto) 85.9 % (42.0-75.0) H 01/17/19 04:04 Lymph % (Auto) 11.3 % (21.0-51.0) L 01/17/19 04:04 [place] % (Auto) 2.4 % (0.0-13.0) 01/17/19 04:04 Eos % (Auto) 0.0 % (0.9-2.9) L 01/17/19 04:04 Baso % (Auto) 0.4 % (0.2-1.0) 01/17/19 04:04 Neut # (Auto) 6.5 x10^3/uL (2.2-4.8) H 01/17/19 04:04 Lymph # (Auto) 0.9 X10^3/uL (1.3-2.9) L 01/17/19 04:04 [place] # (Auto) 0.2 x10^3/uL (0.3-0.8) L 01/17/19 04:04 Eos # (Auto) 0.0 x10^3/uL (0.0-0.2) 01/17/19 04:04 Baso # (Auto) 0.0 X10^3/uL (0.0-0.1) 01/17/19 04:04 Absolute Nucleated RBC 0.0 /100WBC 01/17/19 04:04 INR Target Range - 01/16/19 13:17 INR 2.11 (0.8-1.3) H 01/16/19 13:17 APTT 60.3 SECONDS (22.9-36.5) H 01/16/19 13:17 PTT Comment - 01/16/19 13:17 D-Dimer 159 ng/mL (0-400) 01/16/19 13:17 Sample Site Rr 01/17/19 09:10 ABG pH 7.420 (7.35-7.45) 01/17/19 09:10 ABG pCO2 54.0 mmHg (35.0-45.0) H* 01/17/19 09:10 ABG pO2 42.0 mmHg (80.0-100.0) L* 01/17/19 09:10 ABG HCO3 35.0 mmol/L (22-26) H* 01/17/19 09:10 ABG O2 Saturation 79.0 % (90-100) L* 01/17/19 09:10 ABG Base Excess 8.8 mmol/L (-2.0-2.0) H 01/17/19 09:10 Alexei Test Pos 01/17/19 09:10 A-a Gradient 40.0 mmHg 01/17/19 09:10 FiO2 21.0 01/17/19 09:10 Blood Gas Comments Pt starr well. cdn 01/17/19 09:10 Sodium 136 mmol/L (136-145) 01/17/19 04:04 Corrected Sodium 137 mmol/L (136-145) 01/17/19 04:04 Potassium 3.9 mmol/L (3.5-5.1) 01/17/19 04:04 Chloride 99 mmol/L (98-107) 01/17/19 04:04 Carbon Dioxide 31.1 mmol/L (21-32) 01/17/19 04:04 BUN 12 mg/dL (7-18) 01/17/19 04:04 Creatinine 0.58 mg/dL (0.70-1.30) L 01/17/19 04:04 Est GFR (MDRD) Af Amer > 60 (>60) 01/17/19 04:04 Est GFR (MDRD) Non-Af > 60 (>60) 01/17/19 04:04 Glucose 131 mg/dL (65-99) H 01/17/19 04:04 Calcium 8.3 mg/dL (8.5-10.1) L 01/17/19 04:04 Corrected Calcium 9.3 mg/dL (8.5-10.1) 01/17/19 04:04 Magnesium 2.0 mg/dL (1.7-2.9) 01/16/19 13:17 Total Bilirubin 0.20 mg/dL (0.2-1.0) 01/17/19 04:04 AST 11 Units/L (15-37) L 01/17/19 04:04 ALT 10 Units/L (12-78) L 01/17/19 04:04 Alkaline Phosphatase 78 Units/L (46-116) 01/17/19 04:04 Creatine Kinase 62 Units/L (39-308) 01/17/19 01:26 CK-MB (CK-2) 2.9 ng/mL (0-4.0) 01/17/19 01:26 CK/CKMB % Calc 4.7 % (<4) 01/17/19 01:26 Troponin I < 0.02 ng/mL (0-1.5) 01/17/19 01:26 B-Natriuretic Peptide 217 pg/mL (0-79) H 01/16/19 13:17 Total Protein 6.4 g/dL (6.4-8.2) 01/17/19 04:04 Albumin 2.8 g/dL (3.4-5.0) L 01/17/19 04:04 Globulin 3.6 g/dL (2.5-4.5) 01/17/19 04:04 Albumin/Globulin Ratio 0.8 Ratio (1.1-2.1) L 01/17/19 04:04 Triglycerides 51 mg/dL (0-150) 01/17/19 04:04 Cholesterol 120 mg/dL (0-200) 01/17/19 04:04 LDL Cholesterol, Calc 67 mg/dL (0-100) 01/17/19 04:04 HDL Cholesterol 43 mg/dL (40-60) 01/17/19 04:04 Cholesterol/HDL Ratio 2.8 (0.0-5.0) 01/17/19 04:04 Specimen Type Clean catch urine 01/17/19 01:13 Urine Color Yellow (YELLOW) 01/17/19 01:13 Urine Appearance Clear (CLEAR) 01/17/19 01:13 Urine pH 6.5 (5.0 - 8.0) 01/17/19 01:13 Ur Specific [place] 1.005 (1.000-1.030) 01/17/19 01:13 Urine Protein 1+ (NEGATIVE) 01/17/19 01:13 Urine Glucose (UA) 1+ (NEGATIVE) 01/17/19 01:13 Urine Ketones Negative (NEGATIVE) 01/17/19 01:13 Urine Occult Blood Negative (NEGATIVE) 01/17/19 01:13 Urine Nitrite Negative (NEGATIVE) 01/17/19 01:13 Urine Bilirubin Negative (NEGATIVE) 01/17/19 01:13 Urine Urobilinogen Normal (NORMAL) 01/17/19 01:13 Ur Leukocyte Esterase Negative (NEGATIVE) 01/17/19 01:13 Urine RBC None seen /HPF (NONE SEEN) 01/17/19 01:13 Urine WBC None seen /HPF (NONE SEEN) 01/17/19 01:13 Ur Squamous Epith Cells Few /HPF (NEGATIVE) 01/17/19 01:13 Urine Bacteria Negative /HPF (NEGATIVE) 01/17/19 01:13 Ur Culture Indicated? No/not indicated 01/17/19 01:13 Digoxin 0.55 ng/mL (0.9-2) L 01/17/19 04:04 - Plan (1) SOB (shortness of breath) Status: Acute Plan: ADMIT, AM CXR, ABG ON ADMISSION. RESP CONSULT WITH SUPPLEMENTAL O2, DUO NEBS. VERIFY HOME MEDICATION, CONTINUOUS CARDIAC MONITORING. BP AND LIPID CONTROL, ANTICOAGULANT THERAPY, PT/INR (2) Chest pain Status: Acute (3) CHF (congestive heart failure) Status: Acute (4) Afib Status: Acute (5) COPD (chronic obstructive pulmonary disease) with emphysema Status: Acute Qualifiers: (6) GERD (gastroesophageal reflux disease) Status: Acute Plan: PPI THERAPY, CARAFATE
[2019-01-17 12:24] LABS: CKMB % 4.2 % (<4); CREATINE KINASE 60 Units/L (39-308); CREATINE KINASE MB 2.5 ng/mL (0-4.0); TROPONIN I < 0.02 ng/mL (0-1.5)
[2019-01-17] MEDS ORDERED: AYR NASAL DROPS PRN (13:51)
[2019-01-17] MEDS ORDERED: AYR NASAL DROPS ONE (13:53)
[2019-01-17] MEDS: CARAFATE ORAL SUSP PO SCH ×2 (15:56→20:34)
[2019-01-17] MEDS: NORCO 10/325 TAB PO PRN ×2 (15:57→20:36)
[2019-01-17] MEDS ORDERED: RESTORIL CAP 15 MG PO PRN (19:16)
[2019-01-18] MEDS: MORPHINE SULFATE INJ 2 MG INJ IVP PRN ×2 (01:04→14:25)
[2019-01-18 05:16] LABS: BASOPHILS # (AUTO) 0.1 X10^3/uL (0.0-0.1); BASOPHILS % (AUTO) 0.7 % (0.2-1.0); EOSINOPHILS # (AUTO) 0.1 x10^3/uL (0.0-0.2); EOSINOPHILS % (AUTO) 0.5 % (0.9-2.9); HEMATOCRIT 34.5 % (42.0-54.0); HEMOGLOBIN 11.4 g/dL (13.5-18.0); MEAN CORPUSCULAR HEMOGLOBIN 29.6 pg (27.0-34.0); MEAN CORPUSCULAR HGB CONC 32.9 g/dL (33.0-35.0); MEAN CORPUSCULAR VOLUME 89.8 fL (80.0-100.0); MEAN PLATELET VOLUME 8.9 fL (7.4-11.0); MONOCYTES # (AUTO) 1.2 x10^3/uL (0.3-0.8); MONOCYTES % (AUTO) 8.9 % (0.0-13.0); NEUTROPHILS # (AUTO) 7.6 x10^3/uL (2.2-4.8); NEUTROPHILS % (AUTO) 58.9 % (42.0-75.0); PLATELET COUNT 212 X10^3/uL (150.0-450.0); RED BLOOD COUNT 3.84 X10^6/uL (4.7-6.0); RED CELL DISTRIBUTION WIDTH 16.3 % (11.6-16.5); WHITE BLOOD COUNT 12.9 X10^3/uL (3.6-10.0)
[2019-01-18 05:26] LABS: ALANINE AMINOTRANSFERASE 9 Units/L (12-78); ALBUMIN 2.7 g/dL (3.4-5.0); ALKALINE PHOSPHATASE 77 Units/L (46-116); ASPARTATE AMINO TRANSFERASE 10 Units/L (15-37); BLOOD UREA NITROGEN 16 mg/dL (7-18); CARBON DIOXIDE 35.3 mmol/L (21-32); CHLORIDE 102 mmol/L (98-107); COR NA(FOR HYPERGLY) 139 mmol/L (136-145); CREATININE 0.74 mg/dL (0.70-1.30); DIGOXIN 0.51 ng/mL (0.9-2); SODIUM 139 mmol/L (136-145); TOTAL PROTEIN 5.8 g/dL (6.4-8.2); eGFR NON BLACK RACES > 60 (>60)
[2019-01-18] MEDS: DUONEB 0.5 MG/3 MG NEB SCH ×3 (05:35→16:32)
[2019-01-18] MEDS: CARAFATE ORAL SUSP PO SCH ×3 (06:18→16:35)
[2019-01-18] MEDS: NORCO 10/325 TAB PO PRN ×3 (06:18→16:35)
[2019-01-18] MEDS ORDERED: MICRO K EXTEN CAP 10 MEQ PO PRN (06:20)
[2019-01-18] MEDS ORDERED: POTASSIUM CHLORIDE LIQ 20 MEQ UDC PO PRN (06:20)
[2019-01-18] MEDS ORDERED: MAGNESIUM SULFATE 1 GRAM/100 mL PREMIX 1 GM/100 ML BAG IV PRN (06:20)
[2019-01-18] MEDS ORDERED: K-DUR TAB 20 MEQ PO PRN (06:20)
[2019-01-18] MEDS ORDERED: K-RIDER 10 MEQ/NS 100 ML 10 MEQ/100 ML BAG IV PRN (06:20)
[2019-01-18] MEDS ORDERED: POTASSIUM CHL 40 MEQ/NS 0.45% 500 ML IV PRN (06:20)
[2019-01-18] MEDS ORDERED: KLOR-CON PO PRN (06:20)
[2019-01-18] MEDS ORDERED: POTASSIUM CHL 60 MEQ/NS 0.45% 500 ML IV PRN (06:20)
[2019-01-18] MEDS ORDERED: LEXAPRO ONE (07:55)
[2019-01-18] MEDS: PULMICORT NEB TX 0.5 MG NEB SCH (08:01)
[2019-01-18] MEDS: LANOXIN PO SCH (08:07)
[2019-01-18] MEDS: DALIRESP PO SCH (08:07)
[2019-01-18] MEDS: PEPCID 20 MG IV PREMIX* 20 MG/50 ML BAG IV SCH (08:07)
[2019-01-18] MEDS: CARDIZEM CD 180 MG PO SCH (08:07)
[2019-01-18] MEDS: ASPIRIN PO SCH (08:07)
[2019-01-18] MEDS: COREG TAB 25 MG PO SCH (08:08)
[2019-01-18] MEDS: XARELTO PO SCH (08:08)
[2019-01-18] MEDS: LEXAPRO PO SCH (08:08)
[2019-01-18] MEDS: ZOFRAN INJ 4 MG VIAL IVP PRN (08:46)
[2019-01-18] MEDS ORDERED: LASIX PO SCH (09:00)
[2019-01-18] MEDS ORDERED: MILK OF MAGNESIA PO SCH (09:00)
[2019-01-18] MEDS ORDERED: FLOMAX PO SCH (09:00)
[2019-01-18] MEDS: LEVAQUIN PREMIX IV 750 MG 750 MG/150 ML BAG IV SCH (09:32)
[2019-01-18 16:17] VITALS: BP 95/65
[2019-01-18] MEDS ORDERED: MORPHINE SULFATE INJ 2 MG INJ ONE (21:00)
[2019-01-18] MEDS ORDERED: ZOFRAN INJ 4 MG VIAL ONE (21:00)
[2019-01-18] MEDS ORDERED: CARAFATE ORAL SUSP ONE (21:00)
[2019-01-18] MEDS ORDERED: COLACE CAP 100 MG PO ONE (21:00)
[2019-01-18] MEDS ORDERED: COLACE CAP 100 MG PO SCH (21:00)
[2019-01-18] MEDS ORDERED: COREG TAB 25 MG ONE (21:00)
[2019-01-18] MEDS ORDERED: PULMICORT NEB TX 0.5 MG ONE (21:00)
[2019-01-18] MEDS ORDERED: MILK OF MAGNESIA ONE (21:00)
[2019-01-18] MEDS ORDERED: KLOR-CON PO ONE (21:00)
[2019-01-18] MEDS ORDERED: PEPCID 20 MG IV PREMIX ONE (21:00)
[2019-01-19] MEDS ORDERED: NORCO 10/325 TAB PO ONE ×4 (01:37→20:00)
[2019-01-19] MEDS ORDERED: CARAFATE ORAL SUSP PO ONE ×4 (06:00→20:00)
[2019-01-19] MEDS ORDERED: LEVAQUIN PREMIX IV 750 MG IV ONE (08:00)
[2019-01-19] MEDS ORDERED: FLOMAX PO ONE (08:00)
[2019-01-19] MEDS ORDERED: MILK OF MAGNESIA PO ONE ×2 (08:00→20:00)
[2019-01-19] MEDS ORDERED: DALIRESP PO ONE (08:00)
[2019-01-19] MEDS ORDERED: LANOXIN PO ONE (08:00)
[2019-01-19] MEDS ORDERED: PEPCID 20 MG IV PREMIX IV ONE ×2 (08:00→20:00)
[2019-01-19] MEDS ORDERED: CARDIZEM CD 180 MG PO ONE (08:00)
[2019-01-19] MEDS ORDERED: XARELTO PO ONE (08:00)
[2019-01-19] MEDS ORDERED: ASPIRIN PO ONE (08:00)
[2019-01-19] MEDS ORDERED: LASIX PO ONE (08:00)
[2019-01-19] MEDS ORDERED: LEXAPRO PO ONE (08:00)
[2019-01-19] MEDS ORDERED: MORPHINE SULFATE INJ 2 MG INJ IVP ONE ×3 (08:30→21:00)
[2019-01-19] MEDS ORDERED: PULMICORT NEB TX 0.5 MG NEB ONE ×2 (09:15→21:30)
[2019-01-19] MEDS ORDERED: DUONEB 0.5 MG/3 MG NEB ONE ×2 (13:00→21:30)
[2019-01-19] MEDS ORDERED: COREG TAB 25 MG PO ONE (20:00)
[2019-01-19] MEDS ORDERED: RESTORIL CAP 15 MG PO ONE (20:00)
[2019-01-19] MEDS ORDERED: COLACE CAP 100 MG PO ONE (20:00)
[2019-01-20] MEDS ORDERED: MORPHINE SULFATE INJ 2 MG INJ IVP ONE ×2 (03:06→07:57)
[2019-01-20] MEDS ORDERED: CARAFATE ORAL SUSP PO ONE (05:38)
[2019-01-20] MEDS ORDERED: FLOMAX PO ONE (07:55)
[2019-01-20] MEDS ORDERED: MILK OF MAGNESIA PO ONE (07:55)
[2019-01-20] MEDS ORDERED: ASPIRIN PO ONE (07:55)
[2019-01-20] MEDS ORDERED: PEPCID 20 MG IV PREMIX IV ONE (07:56)
[2019-01-20] MEDS ORDERED: XARELTO PO ONE (07:56)
[2019-01-20] MEDS ORDERED: LANOXIN PO ONE (07:56)
[2019-01-20] MEDS ORDERED: COREG TAB 25 MG PO ONE (07:56)
[2019-01-20] MEDS ORDERED: LASIX PO ONE (07:56)
[2019-01-20] MEDS ORDERED: LEVAQUIN PREMIX IV 750 MG IV ONE (07:57)
[2019-01-20] MEDS ORDERED: DALIRESP PO ONE (07:57)
[2019-01-20] MEDS ORDERED: LEXAPRO PO ONE (07:58)
[2019-01-20] MEDS ORDERED: PULMICORT NEB TX 0.5 MG NEB ONE (09:12)
[2019-01-20] MEDS ORDERED: NORCO 10/325 TAB PO ONE (12:21)
[2019-01-26 09:40] LABS: BLOOD UREA NITROGEN 13 mg/dL (7-18); CARBON DIOXIDE 36.1 mmol/L (21-32); CHLORIDE 101 mmol/L (98-107); SODIUM 140 mmol/L (136-145)
[2019-01-26 09:41] LABS: ALANINE AMINOTRANSFERASE 12 Units/L (12-78); ALBUMIN 2.8 g/dL (3.4-5.0); ALKALINE PHOSPHATASE 100 Units/L (46-116); ASPARTATE AMINO TRANSFERASE 13 Units/L (15-37); CALCIUM 7.9 mg/dL (8.5-10.1); COR CA(FOR HYPOALB) 8.9 mg/dL (8.5-10.1); CREATININE 0.66 mg/dL (0.70-1.30); MAGNESIUM 2.2 mg/dL (1.7-2.9); TOTAL PROTEIN 5.6 g/dL (6.4-8.2); eGFR NON BLACK RACES > 60 (>60)
[2019-01-26 09:42] LABS: HEMATOCRIT 34.3 % (42.0-54.0); HEMOGLOBIN 11.2 g/dL (13.5-18.0); MEAN CORPUSCULAR HEMOGLOBIN 29.9 pg (27.0-34.0); MEAN CORPUSCULAR HGB CONC 32.7 g/dL (33.0-35.0); MEAN CORPUSCULAR VOLUME 91.4 fL (80.0-100.0); PLATELET COUNT 203 X10^3/uL (150.0-450.0); RED BLOOD COUNT 3.75 X10^6/uL (4.7-6.0); RED CELL DISTRIBUTION WIDTH 16.5 % (11.6-16.5); WHITE BLOOD COUNT 11.5 X10^3/uL (3.6-10.0)
[2019-01-26 09:43] LABS: BASOPHILS # (AUTO) 0.1 X10^3/uL (0.0-0.1); BASOPHILS % (AUTO) 0.9 % (0.2-1.0); EOSINOPHILS # (AUTO) 0.1 x10^3/uL (0.0-0.2); EOSINOPHILS % (AUTO) 1.2 % (0.9-2.9); LYMPHOCYTES # (AUTO) 4.2 X10^3/uL (1.3-2.9); MEAN PLATELET VOLUME 8.8 fL (7.4-11.0); MONOCYTES # (AUTO) 1.2 x10^3/uL (0.3-0.8); MONOCYTES % (AUTO) 10.3 % (0.0-13.0); NEUTROPHILS % (AUTO) 51.6 % (42.0-75.0)
[2019-01-26 15:07] LABS: HEMATOCRIT 32.5 % (42.0-54.0); HEMOGLOBIN 10.7 g/dL (13.5-18.0); MEAN CORPUSCULAR HGB CONC 33.1 g/dL (33.0-35.0); MEAN CORPUSCULAR VOLUME 90.8 fL (80.0-100.0); MEAN PLATELET VOLUME 8.9 fL (7.4-11.0); PLATELET COUNT 191 X10^3/uL (150.0-450.0); RED BLOOD COUNT 3.57 X10^6/uL (4.7-6.0); RED CELL DISTRIBUTION WIDTH 16.6 % (11.6-16.5); WHITE BLOOD COUNT 11.2 X10^3/uL (3.6-10.0)
[2019-01-26 15:08] LABS: BASOPHILS # (AUTO) 0.1 X10^3/uL (0.0-0.1); BASOPHILS % (AUTO) 0.9 % (0.2-1.0); EOSINOPHILS # (AUTO) 0.2 x10^3/uL (0.0-0.2); EOSINOPHILS % (AUTO) 2.2 % (0.9-2.9); LYMPHOCYTES # (AUTO) 3.8 X10^3/uL (1.3-2.9); MONOCYTES # (AUTO) 1.1 x10^3/uL (0.3-0.8); NEUTROPHILS # (AUTO) 5.9 x10^3/uL (2.2-4.8); NEUTROPHILS % (AUTO) 52.9 % (42.0-75.0)
[2019-01-26 15:09] LABS: BLOOD UREA NITROGEN 15 mg/dL (7-18); CHLORIDE 101 mmol/L (98-107); CREATININE 0.56 mg/dL (0.70-1.30); SODIUM 140 mmol/L (136-145); eGFR NON BLACK RACES > 60 (>60)
[2019-01-26 15:10] LABS: ALANINE AMINOTRANSFERASE 13 Units/L (12-78); ALBUMIN 2.7 g/dL (3.4-5.0); ALKALINE PHOSPHATASE 95 Units/L (46-116); ASPARTATE AMINO TRANSFERASE 13 Units/L (15-37); CALCIUM 7.8 mg/dL (8.5-10.1); COR CA(FOR HYPOALB) 8.8 mg/dL (8.5-10.1); TOTAL PROTEIN 5.5 g/dL (6.4-8.2)
== END 2019-01-20 11:55 | disposition home or self-care (01) | DRG 191 ==
LOC: ER 12:48 → MED/SURG 12:48 → OBSVTOIN 15:06 → OBS 15:07 → MED/SURG 15:17 → UNDODISIN 01-20 11:55
PROVIDERS: ADMIT Internal Medicine; ATTEND Obstetrics & Gynecology Obstetrics
DX: R07.2 Precordial pain; M65.811 Other synovitis and tenosynovitis, right shoulder; J44.1 Chronic obstructive pulmonary disease with (acute) exacerbation; I48.91 Unspecified atrial fibrillation; M65.812 Other synovitis and tenosynovitis, left shoulder; I25.10 Atherosclerotic heart disease of native coronary artery without angina pectoris; B96.89 Other specified bacterial agents as the cause of diseases classified elsewhere; I95.89 Other hypotension; I24.9 Acute ischemic heart disease, unspecified; K21.9 Gastro-esophageal reflux disease without esophagitis; I10 Essential (primary) hypertension; R94.31 Abnormal electrocardiogram [ECG] [EKG]
CPT/HCPCS: 36415; 36600; 71010; 71020; 71045; 71046; 80053; 80061; 80162; 81001; 82550; 82553; 82803; 83735; 83880; 84484; 85025; 85378; 85610; 85730; 87070; 87077; 87186; 87205; 93005; 94640; 94760; 96365; 96374; 96375; 99231; 99284; A4216; A4222; S0028; G0378; J1956; J2270; J2405; J2930; J7050; J7620; J7626

== ENCOUNTER 2019-02-12 18:29 | Observation (INO) ==
--- NOTE | 2019-02-12 18:46 | DR.HEADACH ---
HPI Time Seen Time Seen by Provider: 02/12/19 18:46 Primary Care Physician Primary Care Physician: COATES Complaint/Symptoms Chief Complaint Doctors Comments: Pt presented by EMS for OCAMPO and sore throat by EMS. Pt reports for the past for days having worsening OCAMPO, left ear pain, increase cough, SIDDIQUI,SOB and reflux. He wa on abx about 3-4wk ago. Denies any fever or chills. he reports his OCAMPO is throbbing 9/10 with some numbness to face. He wears home oxygen 3-4L NC. He has afib. Denies any weakness or recent sick contracts. Chief Complaint:: PT C/O LT SIDED HEADACHE, EAR PAIN, AND SORE THROAT. PT STATES THIS HAS BEEN GOING FOR APPROX 4 DAYS. Pertinent History: Chest Pain, Ear Problem, Headache and Respiratory Problems; denies Altered Mental Status and Fever Reviewed Nurses Notes Reviewed: Yes Source History Provided: Patient Mode of Arrival Mode of Arrival: EMS Timing Onset of Chief Complaint: 02/08/19 Duration Since Onset: Constant Duration: Days (4) Location Headache Location: Generalized Quality Quality: Throbbing Severity Headache Severity: Moderate; denies Worst Headache of Life Context Headache Onset Circumstances: denies Febrile Illness and Trauma History of: Hypertension Modifying Factors Improves With: Analgesics Worsens: Nothing Associated Signs and Symptoms Associated Symptoms: denies Fever, Nausea and Vomitting PMH PMH Past Medical History: Yes Past Medical History: CHF, COPD, Coronary Artery Disease, GERD and Hypertension Past Surgical History: Yes Surgical History: Ortho Surgery Family History History of Family Medical Conditions: Yes Family Medical History: Coronary Artery Disease, Heart Failure and Hypertension Social History Does patient currently use any type of tobacco product: Yes Have you used tobacco products in the last 12 months: Yes Type of Tobacco Use: Cigarettes Does any household member use tobacco: Yes Alcohol Use: None Do you use any recreational Drugs:: No Lives With: Family Lives Where: Home infectious screening In the last 2 months have you had wt loss of >10#?: NO Have you had fever, night sweats or hemotysis?: No Have you traveled outside the country in the last 6 months?: No Isolation: Standard ROS Review of Systems Constitutional: negative Fever, Weakness and Loss of Appetite Eyes: negative Blurred Vision ENTM: Ear Pain, Nose Congestion and Throat Pain Respiratoy: Productive Cough and Short of Breath; negative Wheezing Cardiovascular: Chest Pain; negative Edema and Palpitations Gastrointestinal/Abdominal: Abdominal Pain; negative Nausea and Vomiting Genitourinary: negative Dysuria Neurological: Headache and Numbness Musculoskeletal: negative Joint Pain Endocrine: negative Unexplained Weight Gain and Decreased Appetite Psychiatric: No Symptoms Reported All Other Systems: Reviewed and Negative PE Vital Signs Vitals: Temperature 98.9 F Pulse Rate 85 Respiratory Rate 18 Blood Pressure [Left Arm] 95/65 Blood Pressure [Right Arm] 85/58 Blood Pressure 165/101 O2 Sat by Pulse Oximetry 98 General Limitations: No Limitations General Appearance: Alert and In Distress (mild) Head Head Exam: Normal Inspection, Atraumatic and Normocephalic Eyes Eye exam: Normal Appearance, PERRL and EOMI; negative Scleral Icterus and Nystagmus Eyelids: Normal Inspection: Bilateral Pupils: Regular, Round: Bilateral ENT ENT Exam: Normal Oropharynx, Normal External Ear Exam, Mucous Membranes Dry and TM's Normal Bilaterally External Ear Exam: Normal External Inspection Nose Exam: negative Sinus Tenderness Mouth Exam: Normal Inspection Neck Neck Exam: Normal Inspection and Full ROM; negative Tenderness and L ymphadenopathy Respiratory Respiratory Exam: negative Prolonged Expiratory Phase and Respiratory Distress (on 3L nC) Respiratory Exam: Bilateral: Decreased Breath Sounds (distant, no wheezing) Cardiovascular Cardiovascular Exam: Regular Rate and Irregular Rhythm Abdominal Exam Abdominal Exam: Normal Inspection, Normal Bowel Sounds and Soft; negative Tende rness Back Back Exam: Normal Inspection and Full ROM; negative Tenderness and Vertebral Tenderness Neurologic Neurological Exam: Alert, Oriented X3, CN II-XII Intact, Normal Gait and Reflexes Normal; negative Motor Sensory Deficit Psychiatric Psychiatric Exam: Normal Affect and Normal Mood Skin Skin Exam: Warm, Dry, Intact and Normal Color MDM Differential Diagnosis Differential Diagnosis: Considerations may include:: Hypertensive, CVA and Other (uri) Differential Diagnosis Comment: Copd exacerbation COURSE Treatment Treatment: CT imaging unavailable at this time. Reevaluation 1st: Unchanged Consultation Consultation Comments: spoke to Dr. Coates for admission, will see in hospital. Education/Counseling Education/Counseling: Patient, Education and Counseling Educated On: Treatment, Diagnosis, Prognosis and Needs for Follow Up ROR Labs Reviewed Result Diagrams: 02/12/19 19:16 02/12/19 19:16 Laboratory: WBC 10.1 X10^3/uL (3.6-10.0) H 02/12/19 19:16 RBC 4.82 X10^6/uL (4.7-6.0) 02/12/19 19:16 Hgb 14.5 g/dL (13.5-18.0) 02/12/19 19:16 Hct 43.3 % (42.0-54.0) 02/12/19 19:16 MCV 89.8 fL (80.0-100.0) 02/12/19 19:16 MCH 30.0 pg (27.0-34.0) 02/12/19 19:16 MCHC 33.4 g/dL (33.0-35.0) 02/12/19 19:16 RDW 16.1 % (11.6-16.5) 02/12/19 19:16 Plt Count 235 X10^3/uL (150.0-450.0) 02/12/19 19:16 MPV 8.2 fL (7.4-11.0) 02/12/19 19:16 Neut % (Auto) 62.6 % (42.0-75.0) 02/12/19 19:16 Lymph % (Auto) 26.1 % (21.0-51.0) 02/12/19 19:16 [place] % (Auto) 9.0 % (0.0-13.0) 02/12/19 19:16 Eos % (Auto) 1.4 % (0.9-2.9) 02/12/19 19:16 Baso % (Auto) 0.9 % (0.2-1.0) 02/12/19 19:16 Neut # (Auto) 6.3 x10^3/uL (2.2-4.8) H 02/12/19 19:16 Lymph # (Auto) 2.6 X10^3/uL (1.3-2.9) 02/12/19 19:16 [place] # (Auto) 0.9 x10^3/uL (0.3-0.8) H 02/12/19 19:16 Eos # (Auto) 0.1 x10^3/uL (0.0-0.2) 02/12/19 19:16 Baso # (Auto) 0.1 X10^3/uL (0.0-0.1) 02/12/19 19:16 Absolute Nucleated RBC 0.0 /100WBC 02/12/19 19:16 Sodium 138 mmol/L (136-145) 02/12/19 19:16 Corrected Sodium TNP 02/12/19 19:16 Potassium 4.1 mmol/L (3.5-5.1) 02/12/19 19:16 Chloride 100 mmol/L (98-107) 02/12/19 19:16 Carbon Dioxide 32.1 mmol/L (21-32) H 02/12/19 19:16 BUN 11 mg/dL (7-18) 02/12/19 19:16 Creatinine 0.68 mg/dL (0.70-1.30) L 02/12/19 19:16 Est GFR (MDRD) Af Amer > 60 (>60) 02/12/19 19:16 Est GFR (MDRD) Non-Af > 60 (>60) 02/12/19 19:16 Glucose 95 mg/dL (65-99) 02/12/19 19:16 Calcium 9.0 mg/dL (8.5-10.1) 02/12/19 19:16 Troponin I < 0.02 ng/mL (0-1.5) 02/12/19 19:16 Other Results Comments: Trop negative, WBC 10 XRAY XRAY Interpreted by: Self XRAY Findings: CXR: chronic lung changes with infiltrates EKG Rate: 83 [place]: Normal Rhythm: Afib Block: None Hypertrophy: None ST: Nonsp (PVC present) Opioid Opioid Risk Tool Age (Bong box if 16-45): Yes Total: 1 Total Score Risk Category: Low Risk Copyright: Zach BROWN predicting aberrant behaviors Diagnosis Discharge Problem: COPD exacerbation Gastritis Qualifiers: Gastritis type: unspecified gastritis Chronicity: acute Gastritis bleeding: without bleeding Qualified Code(s): K29.00 - Acute gastritis without bleeding Headache Qualifiers: Headache type: unspecified Headache chronicity pattern: acute headache Intractability: intractable Qualified Code(s): R51 - Headache
[2019-02-12] MEDS ORDERED: NS 1000 ML 1,000 ML IV ONE (18:53)
[2019-02-12] MEDS ORDERED: PREDNISONE TAB 20 MG PO ONE ×3 (18:53→19:26)
[2019-02-12] MEDS ORDERED: TYLENOL 500 MG TAB EXTRA STRENGTH PO ONE ×2 (18:55→19:11)
[2019-02-12] MEDS ORDERED: LEVAQUIN TAB 500 MG PO ONE (18:56)
[2019-02-12] MEDS ORDERED: LEVSIN/MAALOX/LIDOC VISC PO ONE (18:56)
[2019-02-12] MEDS ORDERED: LEVSIN/MAALOX/LIDOC VISC ONE (19:11)
[2019-02-12] MEDS ORDERED: NS 1000 ML 1,000 ML ONE (19:12)
[2019-02-12] MEDS ORDERED: LEVAQUIN TAB 500 MG ONE (19:12)
[2019-02-12 19:27] LABS: BASOPHILS # (AUTO) 0.1 X10^3/uL (0.0-0.1); BASOPHILS % (AUTO) 0.9 % (0.2-1.0); EOSINOPHILS # (AUTO) 0.1 x10^3/uL (0.0-0.2); EOSINOPHILS % (AUTO) 1.4 % (0.9-2.9); HEMATOCRIT 43.3 % (42.0-54.0); HEMOGLOBIN 14.5 g/dL (13.5-18.0); LYMPHOCYTES # (AUTO) 2.6 X10^3/uL (1.3-2.9); LYMPHOCYTES % (AUTO) 26.1 % (21.0-51.0); MEAN CORPUSCULAR HGB CONC 33.4 g/dL (33.0-35.0); MEAN CORPUSCULAR VOLUME 89.8 fL (80.0-100.0); MEAN PLATELET VOLUME 8.2 fL (7.4-11.0); MONOCYTES # (AUTO) 0.9 x10^3/uL (0.3-0.8); NEUTROPHILS # (AUTO) 6.3 x10^3/uL (2.2-4.8); NEUTROPHILS % (AUTO) 62.6 % (42.0-75.0); PLATELET COUNT 235 X10^3/uL (150.0-450.0); RED BLOOD COUNT 4.82 X10^6/uL (4.7-6.0); RED CELL DISTRIBUTION WIDTH 16.1 % (11.6-16.5); WHITE BLOOD COUNT 10.1 X10^3/uL (3.6-10.0)
[2019-02-12 19:38] LABS: BLOOD UREA NITROGEN 11 mg/dL (7-18); CARBON DIOXIDE 32.1 mmol/L (21-32); CHLORIDE 100 mmol/L (98-107); CREATININE 0.68 mg/dL (0.70-1.30); SODIUM 138 mmol/L (136-145); TROPONIN I < 0.02 ng/mL (0-1.5); eGFR NON BLACK RACES > 60 (>60)
[2019-02-12] MEDS ORDERED: DUONEB 0.5 MG/3 MG NEB ONE (19:52)
[2019-02-12] MEDS ORDERED: DUONEB 0.5 MG/3 MG ONE (20:01)
[2019-02-12] MEDS ORDERED: PROTONIX INJ 40 MG VIAL IVP ONE (20:39)
[2019-02-12] MEDS ORDERED: PROTONIX INJ 40 MG VIAL ONE (20:42)
[2019-02-12] MEDS ORDERED: BENADRYL INJ 50 MG VIAL IVP ONE (21:16)
[2019-02-12] MEDS ORDERED: LASIX PO PRN (21:17)
[2019-02-12] MEDS ORDERED: PATIENT'S HOME MEDICATION (Budesonide-Formoterol 2 PUFF) IN SCH (21:17)
--- NOTE | 2019-02-12 21:19 | RAD ---
Chest, two views Indication: Cough, congestion Comparison: 01/19/2019 Findings: Heart is normal in size. Lungs are mildly hyperinflated but clear. No pleural effusion is identified. No pneumothorax. Impression: Lungs mildly hyperinflated but clear. Reported By:
[2019-02-12] MEDS ORDERED: BENADRYL INJ 50 MG VIAL ONE (21:22)
[2019-02-12] MEDS: COREG TAB 25 MG PO SCH (22:00)
[2019-02-12] MEDS: ZANTAC PO SCH (22:00)
[2019-02-12 23:19] VITALS: BMI 26.2
[2019-02-12] MEDS ORDERED: AMBIEN PO PRN (23:20)
[2019-02-12] MEDS: NORCO 5/325 MG TAB PO PRN (23:35)
[2019-02-13] MEDS: NORCO 5/325 MG TAB PO PRN (05:34)
[2019-02-13 05:44] LABS: BASOPHILS % (AUTO) 0.6 % (0.2-1.0); HEMATOCRIT 40.1 % (42.0-54.0); HEMOGLOBIN 13.3 g/dL (13.5-18.0); LYMPHOCYTES # (AUTO) 1.2 X10^3/uL (1.3-2.9); LYMPHOCYTES % (AUTO) 18.5 % (21.0-51.0); MEAN CORPUSCULAR HGB CONC 33.3 g/dL (33.0-35.0); MEAN CORPUSCULAR VOLUME 90.2 fL (80.0-100.0); MEAN PLATELET VOLUME 9.1 fL (7.4-11.0); MONOCYTES # (AUTO) 0.3 x10^3/uL (0.3-0.8); MONOCYTES % (AUTO) 5.3 % (0.0-13.0); NEUTROPHILS # (AUTO) 4.9 x10^3/uL (2.2-4.8); NEUTROPHILS % (AUTO) 75.6 % (42.0-75.0); PLATELET COUNT 209 X10^3/uL (150.0-450.0); RED BLOOD COUNT 4.44 X10^6/uL (4.7-6.0); RED CELL DISTRIBUTION WIDTH 15.7 % (11.6-16.5); WHITE BLOOD COUNT 6.5 X10^3/uL (3.6-10.0)
[2019-02-13 05:49] LABS: BLOOD UREA NITROGEN 10 mg/dL (7-18); CALCIUM 8.4 mg/dL (8.5-10.1); CARBON DIOXIDE 29.5 mmol/L (21-32); CHLORIDE 103 mmol/L (98-107); COR NA(FOR HYPERGLY) 141 mmol/L (136-145); CREATININE 0.55 mg/dL (0.70-1.30); SODIUM 140 mmol/L (136-145); eGFR NON BLACK RACES > 60 (>60)
[2019-02-13] MEDS ORDERED: LEXAPRO ONE (08:05)
[2019-02-13] MEDS ORDERED: ZOFRAN INJ 4 MG VIAL ONE (08:15)
[2019-02-13] MEDS: ZANTAC PO SCH (08:22)
[2019-02-13] MEDS: COREG TAB 25 MG PO SCH (08:23)
[2019-02-13] MEDS: ZOFRAN INJ 4 MG VIAL IVP PRN ×2 (08:24→16:26)
[2019-02-13] MEDS ORDERED: NS 500 ML IV 500 ML ONE (08:27)
[2019-02-13] MEDS ORDERED: PULMICORT NEB TX 0.5 MG NEB SCH ×2 (08:45→09:00)
[2019-02-13] MEDS: DUONEB 0.5 MG/3 MG NEB SCH ×3 (08:47→16:21)
[2019-02-13] MEDS ORDERED: PULMICORT NEB TX 0.5 MG ONE (08:49)
[2019-02-13] MEDS ORDERED: FLOMAX PO SCH (09:00)
[2019-02-13] MEDS ORDERED: LANOXIN PO SCH (09:00)
[2019-02-13] MEDS ORDERED: LEXAPRO PO SCH (09:00)
[2019-02-13] MEDS ORDERED: PREDNISONE TAB 20 MG PO SCH (09:00)
[2019-02-13] MEDS ORDERED: XARELTO PO SCH (09:00)
[2019-02-13] MEDS ORDERED: DALIRESP PO SCH (09:00)
[2019-02-13] MEDS ORDERED: LEVAQUIN PREMIX IV 750 MG 750 MG/150 ML BAG IV SCH (09:00)
[2019-02-13] MEDS ORDERED: CARDIZEM CD 180 MG PO SCH (09:00)
[2019-02-13] MEDS ORDERED: NORCO 10/325 TAB ONE (11:11)
[2019-02-13] MEDS: NORCO 10/325 TAB PO PRN ×2 (11:13→17:11)
[2019-02-13] MEDS ORDERED: ATIVAN INJ 2 MG VIAL IVP ONE (11:43)
[2019-02-13] MEDS ORDERED: ATIVAN INJ 2 MG VIAL ONE (11:45)
[2019-02-13] MEDS ORDERED: ATIVAN INJ 2 MG VIAL IVP NR (13:00)
[2019-02-13 16:27] VITALS: BP 138/81
--- NOTE | 2019-02-13 16:58 | MRI ---
MR brain with and without contrast Indication: Left facial numbness. Evaluate for trigeminal nerve Technique: Multiplanar multi sequence imaging through the brain before and after IV contrast. Comparison: 06/11/[address] Findings: Diffusion-weighted imaging shows no abnormal focus of restricted diffusion to suggest acute infarction. Pituitary gland is normal. Cervical spine shows degenerative change. Soft tissues of the face appear normal. Conal fat is normal. Globes and cells are normal. Paranasal sinuses are relatively clear. There is minimal fluid in the left greater than right mastoid air cells. Vascular flow voids are normal. Scattered T2 hyperintensities are seen in the cerebral white matter, with mild periventricular white matter changes, favoring microangiopathic change. T2 weighted imaging shows normal bilateral internal auditory canals. The right posterior cerebral artery approaches the right trigeminal nerve on axial image 57. The left trigeminal nerve appears normal at the level of the brainstem, and within Meckel's cave, without large lesion identified. Other cranial nerves appear intact. There is no acute intracranial hemorrhage, mass or mass effect. No cerebellopontine angle lesion identified. No large mass seen within the facial soft tissues although postcontrast imaging is significantly limited due to motion artifact. No convincing nerve enhancement is seen, but again motion artifact limits sensitivity significantly. Impression: 1. No left trigeminal nerve mass or abnormal enhancement seen, although motion artifact significantly limits the postcontrast studies. Close clinical and imaging follow-up recommended if symptoms persist or worsen. 2. White matter changes of microangiopathy favored, although other etiologies cannot be excluded by this study. Reported By:
[2019-02-13] MEDS ORDERED: LEVAQUIN TAB 500 MG PO ONE (18:56)
== END 2019-02-13 17:35 | disposition home or self-care (01) ==
LOC: MED/SURG 18:29 → ER 18:29 → MED/SURG 21:44
PROVIDERS: ADMIT Obstetrics & Gynecology Obstetrics; ATTEND Obstetrics & Gynecology Obstetrics
DX: H92.02 Otalgia, left ear; Z99.81 Dependence on supplemental oxygen; I48.91 Unspecified atrial fibrillation; Z79.01 Long term (current) use of anticoagulants; K21.9 Gastro-esophageal reflux disease without esophagitis; R94.31 Abnormal electrocardiogram [ECG] [EKG]; R20.0 Anesthesia of skin; K29.00 Acute gastritis without bleeding; J44.1 Chronic obstructive pulmonary disease with (acute) exacerbation; R51 Headache; R26.89 Other abnormalities of gait and mobility
CPT/HCPCS: 36415; 70553; 71020; 71046; 80048; 80162; 84484; 85025; 87070; 87205; 93005; 94640; 94760; 96365; 96374; 97162; 99284; A4222; C9113; G0378; J1200; J1956; J2060; J2405; J7030; J7040; J7512; J7620; J7626

== ENCOUNTER 2019-04-29 03:53 | Observation (INO) ==
[2019-04-29] MEDS ORDERED: SOLU-Medrol 125 MG VIAL IM ONE (04:02)
[2019-04-29] MEDS ORDERED: DUONEB 0.5 MG/3 MG NEB ONE (04:02)
[2019-04-29] MEDS ORDERED: ZOFRAN INJ 4 MG VIAL IM ONE (04:02)
[2019-04-29] MEDS ORDERED: SOLU-Medrol 125 MG VIAL ONE (04:07)
[2019-04-29] MEDS ORDERED: ZOFRAN INJ 4 MG VIAL ONE (04:07)
[2019-04-29] MEDS ORDERED: SOLU-Medrol 125 MG VIAL IVP ONE (04:09)
[2019-04-29] MEDS ORDERED: ZOFRAN INJ 4 MG VIAL IVP ONE (04:09)
[2019-04-29] MEDS ORDERED: DUONEB 0.5 MG/3 MG ONE (04:22)
--- NOTE | 2019-04-29 04:27 | RAD ---
Chest, 1 view Indication: Shortness of breath, wheezing Comparison: 03/12/2019 Findings: Cardiac silhouette is stable. There are chronic interstitial changes of the lungs with hyperinflation, suggesting COPD, similar to prior. No dense infiltrates or significant pleural effusion. Impression: No acute chest process or significant change from prior. COPD. Reported By:
[2019-04-29 04:34] LABS: BASOPHILS # (AUTO) 0.1 X10^3/uL (0.0-0.1); BASOPHILS % (AUTO) 0.9 % (0.2-1.0); EOSINOPHILS # (AUTO) 0.1 x10^3/uL (0.0-0.2); EOSINOPHILS % (AUTO) 1.3 % (0.9-2.9); HEMATOCRIT 45.2 % (42.0-54.0); HEMOGLOBIN 14.8 g/dL (13.5-18.0); LYMPHOCYTES # (AUTO) 2.2 X10^3/uL (1.3-2.9); LYMPHOCYTES % (AUTO) 25.2 % (21.0-51.0); MEAN CORPUSCULAR HEMOGLOBIN 28.8 pg (27.0-34.0); MEAN CORPUSCULAR HGB CONC 32.7 g/dL (33.0-35.0); MEAN CORPUSCULAR VOLUME 88.2 fL (80.0-100.0); MEAN PLATELET VOLUME 8.9 fL (7.4-11.0); MONOCYTES # (AUTO) 0.8 x10^3/uL (0.3-0.8); MONOCYTES % (AUTO) 8.8 % (0.0-13.0); NEUTROPHILS # (AUTO) 5.5 x10^3/uL (2.2-4.8); NEUTROPHILS % (AUTO) 63.8 % (42.0-75.0); PLATELET COUNT 180 X10^3/uL (150.0-450.0); RED BLOOD COUNT 5.13 X10^6/uL (4.7-6.0); WHITE BLOOD COUNT 8.6 X10^3/uL (3.6-10.0)
[2019-04-29 04:41] LABS: BLOOD UREA NITROGEN 5 mg/dL (7-18); CALCIUM 8.7 mg/dL (8.5-10.1); CARBON DIOXIDE 33.2 mmol/L (21-32); CHLORIDE 101 mmol/L (98-107); CREATININE 0.54 mg/dL (0.70-1.30); SODIUM 139 mmol/L (136-145); TROPONIN I < 0.02 ng/mL (0-1.5); eGFR NON BLACK RACES > 60 (>60)
[2019-04-29 04:45] LABS: ALANINE AMINOTRANSFERASE 11 Units/L (12-78); ALBUMIN 3.3 g/dL (3.4-5.0); ALKALINE PHOSPHATASE 84 Units/L (46-116); ASPARTATE AMINO TRANSFERASE 14 Units/L (15-37); CKMB % 4.2 % (<4); COR CA(FOR HYPOALB) 9.3 mg/dL (8.5-10.1); CREATINE KINASE 60 Units/L (39-308); CREATINE KINASE MB 2.5 ng/mL (0-4.0); TOTAL PROTEIN 6.6 g/dL (6.4-8.2)
--- NOTE | 2019-04-29 04:46 | DR.SOBA ---
HPI - Time Seen Time seen: 04:01 - HPI Comment HPI Comment: 59y/o on home oxygen with sob, cough, wheezing and myalgia x 3 days or so; worsening despite home nebs; fevers, chills, sore throat, headache as well; no cp, palpitations; he saw cardiology earlier this week. - Reviewed Nurses Notes Reviewed: Yes PMH - PMH Past Medical History: Coronary Artery Disease, Hypertension, COPD, GERD, CHF Past Surgical History: Yes Surgical History: Ortho Surgery - Family History Family Medical History: [place], Coronary Artery Disease, Heart Failure, Sudden Cardiac , Hypertension - Social History Do you use any recreational Drugs:: No - infectious screening Isolation: Standard ROS - Review of Systems Constitutional: See HPI, Chills, Malaise, Weakness, Fatigue Eyes: No Symptoms Reported ENTM: See HPI Respiratoy: See HPI, Short of Breath, Wheezing Cardiovascular: No Symptoms Reported Gastrointestinal/Abdominal: No Symptoms Reported Genitourinary: No Symptoms Reported Musculoskeletal: See HPI, Joint Pain, Muscle Pain Integumentary: No Symptoms Reported Hematologic/Lymphatic: No Symptoms Reported Endocrine: No Symptoms Reported Psychiatric: See HPI PE - General Limitations: No Limitations General Appearance: Alert, In No Apparent Distress - Head Head Exam: Normal Inspection - Eyes Eye exam: Normal Appearance - ENT ENT Exam: Normal Exam - Chest Chest Inspection: Normal Inspection - Respiratory Respiratory Exam: Bilateral Wheezing (scattered throughout) - Cardiovascular Cardiovascular Exam: Irregular Rhythm - Abdominal Exam Abdominal Exam: Normal Inspection, Normal Bowel Sounds, Soft - Extremities Extremities Exam: Normal Inspection - Back Back Exam: Normal Inspection - Neurologic Neurological Exam: Alert, Oriented X3 - Psychiatric Psychiatric Exam: Flat Affect - Skin Skin Exam: Warm, Dry - Vital Signs Vitals: Temperature 98.1 F Pulse Rate 112 Respiratory Rate 25 Blood Pressure [Left Arm] 142/98 Blood Pressure [Right Arm] 129/83 Blood Pressure 126/94 O2 Sat by Pulse Oximetry 88 Course - Reevaluation 1st: Unchanged 2nd: Worsened (0700 sats in the low 80s) - Consultation Called: 06:20 Call Returned: 06:25 (Dr Gonzalez accepts pt) ROR - Labs Reviewed Laboratory Results Reviewed?: Yes Result Diagrams: 04/29/19 04:15 04/29/19 04:15 - XRAY XRAY Interpreted by: Radiologist (Impression: No acute chest process or significant change from prior. COPD.) - Labs Reviewed Laboratory: WBC 8.6 X10^3/uL (3.6-10.0) 04/29/19 04:15 RBC 5.13 X10^6/uL (4.7-6.0) 04/29/19 04:15 Hgb 14.8 g/dL (13.5-18.0) 04/29/19 04:15 Hct 45.2 % (42.0-54.0) 04/29/19 04:15 MCV 88.2 fL (80.0-100.0) 04/29/19 04:15 MCH 28.8 pg (27.0-34.0) 04/29/19 04:15 MCHC 32.7 g/dL (33.0-35.0) L 04/29/19 04:15 RDW 15.0 % (11.6-16.5) 04/29/19 04:15 Plt Count 180 X10^3/uL (150.0-450.0) 04/29/19 04:15 MPV 8.9 fL (7.4-11.0) 04/29/19 04:15 Neut % (Auto) 63.8 % (42.0-75.0) 04/29/19 04:15 Lymph % (Auto) 25.2 % (21.0-51.0) 04/29/19 04:15 [place] % (Auto) 8.8 % (0.0-13.0) 04/29/19 04:15 Eos % (Auto) 1.3 % (0.9-2.9) 04/29/19 04:15 Baso % (Auto) 0.9 % (0.2-1.0) 04/29/19 04:15 Neut # (Auto) 5.5 x10^3/uL (2.2-4.8) H 04/29/19 04:15 Lymph # (Auto) 2.2 X10^3/uL (1.3-2.9) 04/29/19 04:15 [place] # (Auto) 0.8 x10^3/uL (0.3-0.8) 04/29/19 04:15 Eos # (Auto) 0.1 x10^3/uL (0.0-0.2) 04/29/19 04:15 Baso # (Auto) 0.1 X10^3/uL (0.0-0.1) 04/29/19 04:15 Absolute Nucleated RBC 0.1 /100WBC 04/29/19 04:15 Sample Site Lbra 04/29/19 06:41 ABG pH 7.420 (7.35-7.45) 04/29/19 06:41 ABG pCO2 56.0 mmHg (35.0-45.0) H* 04/29/19 06:41 ABG pO2 49.0 mmHg (80.0-100.0) L* 04/29/19 06:41 ABG HCO3 36.3 mmol/L (22-26) H* 04/29/19 06:41 ABG O2 Saturation 85.0 % (90-100) L 04/29/19 06:41 ABG Base Excess 9.9 mmol/L (-2.0-2.0) H 04/29/19 06:41 Alexei Test Na 04/29/19 06:41 A-a Gradient 81.0 mmHg 04/29/19 06:41 FiO2 28 04/29/19 06:41 Blood Gas Comments Sukhi abg well-mtf 04/29/19 06:41 Sodium 139 mmol/L (136-145) 04/29/19 04:15 Corrected Sodium TNP 04/29/19 04:15 Potassium 3.6 mmol/L (3.5-5.1) 04/29/19 04:15 Chloride 101 mmol/L (98-107) 04/29/19 04:15 Carbon Dioxide 33.2 mmol/L (21-32) H 04/29/19 04:15 BUN 5 mg/dL (7-18) L 04/29/19 04:15 Creatinine 0.54 mg/dL (0.70-1.30) L 04/29/19 04:15 Est GFR (MDRD) Af Amer > 60 (>60) 04/29/19 04:15 Est GFR (MDRD) Non-Af > 60 (>60) 04/29/19 04:15 Glucose 100 mg/dL (65-99) H 04/29/19 04:15 Calcium 8.7 mg/dL (8.5-10.1) 04/29/19 04:15 Corrected Calcium 9.3 mg/dL (8.5-10.1) 04/29/19 04:15 Total Bilirubin 0.60 mg/dL (0.2-1.0) 04/29/19 04:15 AST 14 Units/L (15-37) L 04/29/19 04:15 ALT 11 Units/L (12-78) L 04/29/19 04:15 Alkaline Phosphatase 84 Units/L (46-116) 04/29/19 04:15 Creatine Kinase 60 Units/L (39-308) 04/29/19 04:15 CK-MB (CK-2) 2.5 ng/mL (0-4.0) 04/29/19 04:15 CK/CKMB % Calc 4.2 % (<4) 04/29/19 04:15 Troponin I < 0.02 ng/mL (0-1.5) 04/29/19 04:15 B-Natriuretic Peptide 73.5 pg/mL (0-79) 04/29/19 04:15 Total Protein 6.6 g/dL (6.4-8.2) 04/29/19 04:15 Albumin 3.3 g/dL (3.4-5.0) L 04/29/19 04:15 Globulin 3.3 g/dL (2.5-4.5) 04/29/19 04:15 Albumin/Globulin Ratio 1.0 Ratio (1.1-2.1) L 04/29/19 04:15 Opioid - Opioid Risk Tool Age (Bong box if 16-45): No History of Preadolescent Sexual Abuse: No Total: 0 Total Score Risk Category: Low Risk - Diagnosis Discharge Problem: Acute exacerbation of chronic obstructive pulmonary disease (COPD) Dyspnea Qualifiers: Dyspnea type: shortness of breath Qualified Code(s): R06.02 - Shortness of breath - Discharge Plan Disposition: ADMITTED INPATIENT Condition: Stable
[2019-04-29] MEDS ORDERED: ROCEPHIN VIAL 1 GRAM 1 G in NS 100 ML IV + SPIKE MINIBAG* 100 ML IV ONE (05:12)
[2019-04-29] MEDS ORDERED: ZITHROMAX INJ 500 MG VIAL 500 MG in NS 250 ML IV 250 ML IV SCH (05:13)
[2019-04-29] MEDS ORDERED: NS 1000 ML 1,000 ML ONE (05:42)
[2019-04-29] MEDS ORDERED: ZITHROMAX INJ 500 MG VIAL IV ONE (05:43)
[2019-04-29] MEDS ORDERED: NS 250 ML IV 250 ML IV ONE (05:44)
[2019-04-29] MEDS ORDERED: ROCEPHIN VIAL 1 GRAM ONE (05:44)
[2019-04-29 06:54] LABS: ABG BASE EXCESS 9.9 mmol/L (-2.0-2.0); ABG HCO3 36.3 mmol/L (22-26)
[2019-04-29 06:55] LABS: FRACTIONATED INSPIRED OXYGEN 28
[2019-04-29] MEDS ORDERED: APRESOLINE INJ 20 MG VIAL IVP PRN (06:58)
[2019-04-29] MEDS: DUONEB 0.5 MG/3 MG NEB SCH ×4 (09:03→20:58)
[2019-04-29] MEDS ORDERED: PHENERGAN INJ 25 MG IM ONE (09:54)
[2019-04-29] MEDS: PHENERGAN INJ 25 MG IM PRN ×4 (10:04→21:52)
[2019-04-29] MEDS: SOLU-Medrol 125 MG VIAL IVP SCH (10:06)
[2019-04-29 11:46] VITALS: BMI 25.9
[2019-04-29] MEDS ORDERED: MILK OF MAGNESIA PO PRN (11:50)
[2019-04-29] MEDS ORDERED: NORCO 10/325 TAB ONE (12:12)
[2019-04-29] MEDS: NORCO 10/325 TAB PO PRN ×3 (12:15→21:51)
[2019-04-29] MEDS: NICOTINE PATCH TD SCH (16:53)
[2019-04-29] MEDS ORDERED: COLACE CAP 100 MG PO SCH (21:00)
[2019-04-29] MEDS ORDERED: NS 1000 ML 1,000 ML IV ONE (23:54)
[2019-04-29] MEDS ORDERED: TYLENOL 325 MG TAB PO PRN (23:55)
[2019-04-29] MEDS ORDERED: TYLENOL 325 MG TAB PO ONE (23:56)
[2019-04-30] MEDS: DUONEB 0.5 MG/3 MG NEB SCH ×3 (01:20→08:45)
[2019-04-30] MEDS ORDERED: ROBITUSSIN DM PO PRN (03:43)
[2019-04-30] MEDS ORDERED: ROBITUSSIN DM ONE (03:44)
[2019-04-30] MEDS: NORCO 10/325 TAB PO PRN (04:48)
[2019-04-30] MEDS: PHENERGAN INJ 25 MG IM PRN (04:48)
[2019-04-30] MEDS: ZITHROMAX INJ 500 MG VIAL 500 MG in NS 250 ML IV 250 ML IV SCH ×2 (05:41→09:40)
[2019-04-30 06:11] VITALS: BP 134/86
[2019-04-30 07:30] LABS: BASOPHILS # (AUTO) 0.1 X10^3/uL (0.0-0.1); BASOPHILS % (AUTO) 0.4 % (0.2-1.0); HEMATOCRIT 39.3 % (42.0-54.0); LYMPHOCYTES % (AUTO) 14.1 % (21.0-51.0); MEAN CORPUSCULAR HEMOGLOBIN 28.7 pg (27.0-34.0); MEAN CORPUSCULAR HGB CONC 33.1 g/dL (33.0-35.0); MEAN CORPUSCULAR VOLUME 86.6 fL (80.0-100.0); MEAN PLATELET VOLUME 8.5 fL (7.4-11.0); MONOCYTES # (AUTO) 1.8 x10^3/uL (0.3-0.8); MONOCYTES % (AUTO) 8.2 % (0.0-13.0); NEUTROPHILS # (AUTO) 16.6 x10^3/uL (2.2-4.8); NEUTROPHILS % (AUTO) 77.3 % (42.0-75.0); PLATELET COUNT 187 X10^3/uL (150.0-450.0); RED BLOOD COUNT 4.54 X10^6/uL (4.7-6.0); RED CELL DISTRIBUTION WIDTH 15.1 % (11.6-16.5); WHITE BLOOD COUNT 21.4 X10^3/uL (3.6-10.0)
[2019-04-30 07:42] LABS: ALANINE AMINOTRANSFERASE 11 Units/L (12-78); ALBUMIN 2.8 g/dL (3.4-5.0); ALKALINE PHOSPHATASE 81 Units/L (46-116); ASPARTATE AMINO TRANSFERASE 15 Units/L (15-37); BLOOD UREA NITROGEN 7 mg/dL (7-18); CARBON DIOXIDE 31.3 mmol/L (21-32); CHLORIDE 102 mmol/L (98-107); CREATININE 0.57 mg/dL (0.70-1.30); PLATELET MORPHOLOGY COMMENT NORMAL (NORMAL); SODIUM 140 mmol/L (136-145); TOTAL PROTEIN 5.6 g/dL (6.4-8.2); eGFR NON BLACK RACES > 60 (>60)
[2019-04-30] MEDS ORDERED: KLOR-CON PO PRN (07:46)
[2019-04-30] MEDS ORDERED: K-DUR TAB 20 MEQ PO PRN (07:46)
[2019-04-30] MEDS ORDERED: MICRO K EXTEN CAP 10 MEQ PO PRN (07:46)
[2019-04-30] MEDS ORDERED: POTASSIUM CHL 60 MEQ/NS 0.45% 500 ML IV PRN (07:46)
[2019-04-30] MEDS ORDERED: K-RIDER 10 MEQ/NS 100 ML 10 MEQ/100 ML BAG IV PRN (07:46)
[2019-04-30] MEDS ORDERED: MAGNESIUM SULFATE 1 GRAM/100 mL PREMIX 1 GM/100 ML BAG IV PRN (07:46)
[2019-04-30] MEDS ORDERED: POTASSIUM CHLORIDE LIQ 20 MEQ UDC PO PRN (07:46)
[2019-04-30] MEDS ORDERED: POTASSIUM CHL 40 MEQ/NS 0.45% 500 ML IV PRN (07:46)
[2019-04-30] MEDS: SOLU-Medrol 125 MG VIAL IVP SCH (09:40)
[2019-04-30] MEDS: NICOTINE PATCH TD SCH (09:40)
== END 2019-04-30 11:15 | disposition home or self-care (01) ==
LOC: ER 03:54 → ICU 06:30 → INTOOBSV 07:15 → ICU 07:58
PROVIDERS: ADMIT Obstetrics & Gynecology Obstetrics; ATTEND Obstetrics & Gynecology Obstetrics
DX: B95.3 Streptococcus pneumoniae as the cause of diseases classified elsewhere; K21.9 Gastro-esophageal reflux disease without esophagitis; R94.31 Abnormal electrocardiogram [ECG] [EKG]; I25.10 Atherosclerotic heart disease of native coronary artery without angina pectoris; J44.1 Chronic obstructive pulmonary disease with (acute) exacerbation; B96.89 Other specified bacterial agents as the cause of diseases classified elsewhere; R51 Headache; I10 Essential (primary) hypertension; R06.02 Shortness of breath
CPT/HCPCS: 36415; 36600; 71010; 71045; 80053; 82550; 82553; 82803; 83735; 83880; 84484; 85025; 87070; 87077; 87186; 87205; 87502; 93005; 94640; 96360; 96361; 96365; 96367; 96372; 96374; 96375; 99284; A4222; G0378; J0456; J0696; J2405; J2550; J2930; J3490; J7030; J7050; J7620

== ENCOUNTER 2019-07-30 18:04 | Inpatient (IN) ==
--- NOTE | 2019-07-30 18:19 | DR.SOBA ---
HPI Time Seen Time Seen by Provider: 07/30/19 18:14 Primary Care Physician Primary Care Physician: Lisa HPI Comment HPI Comment: pt called EMS because SOB. EMS found pt in a.emily w RVR 170. Complaints Chief Complaint Doctors Comments: Has been here before in a.emily with RVR. This began 1-2 hours ago. Has home O2 but sats were 91% on 2 lpm Reviewed Nurses Notes Reviewed: Yes Source History Provided: Patient and EMS Mode of Arrival Mode of Arrival: EMS Context Onset:: At Rest History of:: COPD Prehospital Care:: O2 Modifying Factors Worsens:: Nothing Improves:: Nothing Associated Signs and Symptoms Associated Signs and Symptoms: Cough; denies Fever, Hemoptysis, Chest Pain and Calf Pain If Chest Pain Quality: Sharp Location: Left Lower Chest (along rib border) If Cough Cough: Nonproductive PMH PMH Past Medical History: CHF, COPD, Coronary Artery Disease, GERD and Hypertension Past Medical History Comment: atrial fib Past Surgical History: Yes Surgical History: Cholecystectomy and Ortho Surgery Family History Family Medical History: [place], Coronary Artery Disease, Heart Failure, Sudden Cardiac and Hypertension Social History Does patient currently use any type of tobacco product: Yes Have you used tobacco products in the last 12 months: Yes Type of Tobacco Use: Cigarettes Alcohol Use: None Do you use any recreational Drugs:: No Lives With: Spouse Lives Where: Home infectious screening In the last 2 months have you had wt loss of >10#?: NO Have you had fever, night sweats or hemotysis?: No Have you traveled outside the country in the last 6 months?: No Isolation: Standard ROS Review of Systems Constitutional: negative Chills and Fever Eyes: No Symptoms Reported ENTM: No Symptoms Reported Respiratoy: See HPI, Non-Productive Cough, Short of Breath and Wheezing; negativ e Hemoptysis Cardiovascular: See HPI and Palpitations; negative Edema Gastrointestinal/Abdominal: No Symptoms Reported Neurological: No Symptoms Reported Musculoskeletal: No Symptoms Reported All Other Systems: Reviewed and Negative PE Vital Signs Vitals: Temperature 98.7 F Pulse Rate 133 Respiratory Rate 22 Blood Pressure [Left Arm] 142/98 Blood Pressure [Right Arm] 147/94 Blood Pressure 149/79 O2 Sat by Pulse Oximetry 94 General Limitations: No Limitations General Appearance: Alert, In No Apparent Distress and Anxious Eyes Eye exam: Normal Appearance and EOMI; negative Scleral Icterus ENT ENT Exam: Normal Exam Neck Neck Exam: Normal Inspection Chest Chest Inspection: Symmetric Chest Wall Rise and Tenderness (along rib margins) MDM Additional Information Obtained Additional Information Obtained From: Old Records Differential Diagnosis Differential Diagnosis: COPD and Pneumonia Differential Diagnosis Comment:: atrial fib w RVR ROR Labs Reviewed Laboratory Results Reviewed?: Yes Result Diagrams: 07/30/19 18:30 07/30/19 18:30 Laboratory: 07/30/19 18:30 Sputum - Expectorated Sputum - Final WBC 17.7 X10^3/uL (3.6-10.0) H 07/30/19 18:30 RBC 4.47 X10^6/uL (4.7-6.0) L 07/30/19 18:30 Hgb 12.9 g/dL (13.5-18.0) L 07/30/19 18:30 Hct 40.3 % (42.0-54.0) L 07/30/19 18:30 MCV 90.2 fL (80.0-100.0) 07/30/19 18:30 MCH 28.8 pg (27.0-34.0) 07/30/19 18:30 MCHC 31.9 g/dL (33.0-35.0) L 07/30/19 18:30 RDW 14.5 % (11.6-16.5) 07/30/19 18:30 Plt Count 268 X10^3/uL (150.0-450.0) 07/30/19 18:30 MPV 8.2 fL (7.4-11.0) 07/30/19 18:30 Neut % (Auto) 79.3 % (42.0-75.0) H 07/30/19 18:30 Lymph % (Auto) 11.9 % (21.0-51.0) L 07/30/19 18:30 [place] % (Auto) 8.0 % (0.0-13.0) 07/30/19 18:30 Eos % (Auto) 0.5 % (0.9-2.9) L 07/30/19 18:30 Baso % (Auto) 0.3 % (0.2-1.0) 07/30/19 18:30 Neut # (Auto) 14.0 x10^3/uL (2.2-4.8) H 07/30/19 18:30 Lymph # (Auto) 2.1 X10^3/uL (1.3-2.9) 07/30/19 18:30 [place] # (Auto) 1.4 x10^3/uL (0.3-0.8) H 07/30/19 18:30 Eos # (Auto) 0.1 x10^3/uL (0.0-0.2) 07/30/19 18:30 Baso # (Auto) 0.1 X10^3/uL (0.0-0.1) 07/30/19 18:30 Absolute Nucleated RBC 0.0 /100WBC 07/30/19 18:30 D-Dimer 461 ng/mL (0-400) H* 07/30/19 18:30 Sodium 138 mmol/L (136-145) 07/30/19 18:30 Corrected Sodium TNP 07/30/19 18:30 Potassium 4.3 mmol/L (3.5-5.1) 07/30/19 18:30 Chloride 101 mmol/L (98-107) 07/30/19 18:30 Carbon Dioxide 37.2 mmol/L (21-32) H 07/30/19 18:30 BUN 12 mg/dL (7-18) 07/30/19 18:30 Creatinine 0.52 mg/dL (0.70-1.30) L 07/30/19 18:30 Est GFR (MDRD) Af Amer > 60 (>60) 07/30/19 18:30 Est GFR (MDRD) Non-Af > 60 (>60) 07/30/19 18:30 Glucose 98 mg/dL (65-99) 07/30/19 18:30 Calcium 8.4 mg/dL (8.5-10.1) L 07/30/19 18:30 Corrected Calcium 9.4 mg/dL (8.5-10.1) 07/30/19 18:30 Magnesium 1.7 mg/dL (1.7-2.9) 07/30/19 18:30 Total Bilirubin 0.30 mg/dL (0.2-1.0) 07/30/19 18:30 AST 12 Units/L (15-37) L 07/30/19 18:30 ALT 14 Units/L (12-78) 07/30/19 18:30 Alkaline Phosphatase 84 Units/L (46-116) 07/30/19 18:30 Creatine Kinase 32 Units/L (39-308) L 07/30/19 18:30 CK-MB (CK-2) 1.2 ng/mL (0-4.0) 07/30/19 18:30 CK/CKMB % Calc 3.8 % (<4) 07/30/19 18:30 Troponin I < 0.02 ng/mL (0-1.5) 07/30/19 18:30 B-Natriuretic Peptide 57.8 pg/mL (0-79) 07/30/19 18:30 Total Protein 6.8 g/dL (6.4-8.2) 07/30/19 18:30 Albumin 2.8 g/dL (3.4-5.0) L 07/30/19 18:30 Globulin 4.0 g/dL (2.5-4.5) 07/30/19 18:30 Albumin/Globulin Ratio 0.7 Ratio (1.1-2.1) L 07/30/19 18:30 XRAY XRAY Findings: COPD, nothing acute EKG Rate: 158 Central: Normal Rhythm: Afib Block: None Hypertrophy: None ST: Normal Opioid Opioid Risk Tool Personal Hx of Substance Abuse: Alcohol Age (Bong box if 16-45): No Total: 0 Total Score Risk Category: Low Risk Copyright: Zach BROWN predicting aberrant behaviors ADDITIONAL NOTES Additional Notes Additional Notes: Diagnosis: atrial fib with RVR bacterial bronchitis, exacerbation COPD Admit ICU
[2019-07-30 18:20] VITALS: BMI 25.0
[2019-07-30] MEDS ORDERED: CARDIZEM INJ 50 MG VIAL IVP ONE (18:21)
[2019-07-30] MEDS ORDERED: CARDIZEM INJ 125 MG VIAL ONE (18:29)
[2019-07-30] MEDS ORDERED: CARDIZEM INJ 50 MG VIAL ONE (18:29)
[2019-07-30] MEDS ORDERED: NS 100 ML IV 100 ML IV ONE (18:30)
[2019-07-30 18:46] LABS: BASOPHILS # (AUTO) 0.1 X10^3/uL (0.0-0.1); BASOPHILS % (AUTO) 0.3 % (0.2-1.0); EOSINOPHILS # (AUTO) 0.1 x10^3/uL (0.0-0.2); EOSINOPHILS % (AUTO) 0.5 % (0.9-2.9); HEMATOCRIT 40.3 % (42.0-54.0); HEMOGLOBIN 12.9 g/dL (13.5-18.0); LYMPHOCYTES # (AUTO) 2.1 X10^3/uL (1.3-2.9); LYMPHOCYTES % (AUTO) 11.9 % (21.0-51.0); MEAN CORPUSCULAR HEMOGLOBIN 28.8 pg (27.0-34.0); MEAN CORPUSCULAR HGB CONC 31.9 g/dL (33.0-35.0); MEAN CORPUSCULAR VOLUME 90.2 fL (80.0-100.0); MEAN PLATELET VOLUME 8.2 fL (7.4-11.0); MONOCYTES # (AUTO) 1.4 x10^3/uL (0.3-0.8); NEUTROPHILS % (AUTO) 79.3 % (42.0-75.0); PLATELET COUNT 268 X10^3/uL (150.0-450.0); RED BLOOD COUNT 4.47 X10^6/uL (4.7-6.0); RED CELL DISTRIBUTION WIDTH 14.5 % (11.6-16.5); WHITE BLOOD COUNT 17.7 X10^3/uL (3.6-10.0)
[2019-07-30] MEDS: CARDIZEM INJ 125 MG VIAL 125 MG in NS 100 ML IV 100 ML IV PRN (18:47)
--- NOTE | 2019-07-30 18:51 | RAD ---
CHEST, 1 VIEWHISTORY: SOBStudy: AP view of the chest.Comparison:NoneFindings:The cardiomediastinal silhouette is normal. No focal consolidations, pleural effusions or pneumothorax. Osseous structures demonstrate no acute abnormality. Bilateral hyperexpansion and interstitial prominence.IMPRESSION:1. No acute cardiopulmonary process.2. Findings of COPD.Electronically signed by: LISET WASHINGTON (Jul 30, 2019 18:49:36)
[2019-07-30 19:01] LABS: BLOOD UREA NITROGEN 12 mg/dL (7-18); CALCIUM 8.4 mg/dL (8.5-10.1); CARBON DIOXIDE 37.2 mmol/L (21-32); CHLORIDE 101 mmol/L (98-107); CREATININE 0.52 mg/dL (0.70-1.30); SODIUM 138 mmol/L (136-145); TROPONIN I < 0.02 ng/mL (0-1.5); eGFR NON BLACK RACES > 60 (>60)
[2019-07-30 19:06] LABS: ALANINE AMINOTRANSFERASE 14 Units/L (12-78); ALBUMIN 2.8 g/dL (3.4-5.0); ALKALINE PHOSPHATASE 84 Units/L (46-116); ASPARTATE AMINO TRANSFERASE 12 Units/L (15-37); CKMB % 3.8 % (<4); COR CA(FOR HYPOALB) 9.4 mg/dL (8.5-10.1); CREATINE KINASE 32 Units/L (39-308); CREATINE KINASE MB 1.2 ng/mL (0-4.0); MAGNESIUM 1.7 mg/dL (1.7-2.9); TOTAL PROTEIN 6.8 g/dL (6.4-8.2)
[2019-07-30] MEDS ORDERED: DUONEB 0.5 MG/3 MG (3 mL) NEB ONE (19:45)
[2019-07-30] MEDS: DUONEB 0.5 MG/3 MG (3 mL) NEB SCH (20:00)
[2019-07-30] MEDS: ZITHROMAX INJ 500 MG VIAL 500 MG in NS 250 ML IV 250 ML IV SCH (21:56)
[2019-07-30] MEDS: SOLU-Medrol 125 MG VIAL IVP SCH (21:56)
[2019-07-30] MEDS: ROCEPHIN VIAL 1 GRAM 1 G in NS 100 ML IV + SPIKE MINIBAG* 100 ML IV SCH (21:56)
[2019-07-30] MEDS: TYLENOL 325 MG TAB PO PRN (22:03)
[2019-07-31] MEDS: DUONEB 0.5 MG/3 MG (3 mL) NEB SCH ×4 (00:30→17:15)
[2019-07-31] MEDS: SOLU-Medrol 125 MG VIAL IVP SCH ×4 (03:05→20:32)
[2019-07-31 07:51] LABS: BASOPHILS % (AUTO) 0.2 % (0.2-1.0); HEMATOCRIT 38.1 % (42.0-54.0); HEMOGLOBIN 12.4 g/dL (13.5-18.0); LYMPHOCYTES # (AUTO) 0.7 X10^3/uL (1.3-2.9); LYMPHOCYTES % (AUTO) 6.8 % (21.0-51.0); MEAN CORPUSCULAR HEMOGLOBIN 28.9 pg (27.0-34.0); MEAN CORPUSCULAR HGB CONC 32.5 g/dL (33.0-35.0); MEAN CORPUSCULAR VOLUME 88.9 fL (80.0-100.0); MEAN PLATELET VOLUME 8.1 fL (7.4-11.0); MONOCYTES # (AUTO) 0.1 x10^3/uL (0.3-0.8); MONOCYTES % (AUTO) 0.7 % (0.0-13.0); NEUTROPHILS % (AUTO) 92.3 % (42.0-75.0); PLATELET COUNT 245 X10^3/uL (150.0-450.0); RED BLOOD COUNT 4.29 X10^6/uL (4.7-6.0); RED CELL DISTRIBUTION WIDTH 14.8 % (11.6-16.5); WHITE BLOOD COUNT 9.7 X10^3/uL (3.6-10.0)
[2019-07-31 07:59] LABS: ALANINE AMINOTRANSFERASE 12 Units/L (12-78); ALBUMIN 2.6 g/dL (3.4-5.0); ALKALINE PHOSPHATASE 82 Units/L (46-116); ASPARTATE AMINO TRANSFERASE 9 Units/L (15-37); BLOOD UREA NITROGEN 11 mg/dL (7-18); CALCIUM 8.4 mg/dL (8.5-10.1); CARBON DIOXIDE 34.7 mmol/L (21-32); CHLORIDE 100 mmol/L (98-107); COR CA(FOR HYPOALB) 9.5 mg/dL (8.5-10.1); COR NA(FOR HYPERGLY) 140 mmol/L (136-145); SODIUM 137 mmol/L (136-145); TOTAL PROTEIN 6.5 g/dL (6.4-8.2); eGFR NON BLACK RACES > 60 (>60)
[2019-07-31 08:12] LABS: PLATELET MORPHOLOGY COMMENT NORMAL (NORMAL)
[2019-07-31] MEDS: TYLENOL 325 MG TAB PO PRN ×2 (08:50→14:17)
[2019-07-31] MEDS: PHENERGAN TAB 25 MG PO PRN ×2 (10:55→19:19)
[2019-07-31] MEDS: CARDIZEM CD 180 MG 24-HR PO SCH (10:55)
[2019-07-31] MEDS: TOPAMAX PO SCH ×2 (10:56→20:33)
[2019-07-31] MEDS: COLACE CAP 100 MG PO SCH ×2 (10:56→20:33)
[2019-07-31] MEDS: NICOTINE PATCH TD SCH (14:19)
[2019-07-31] MEDS: NORCO 10/325 TAB PO PRN ×2 (17:09→23:40)
[2019-07-31] MEDS: CARDIZEM INJ 125 MG VIAL 125 MG in NS 100 ML IV 100 ML IV PRN (17:11)
[2019-07-31] MEDS ORDERED: PEPCID TAB 20 MG ONE (18:12)
[2019-07-31] MEDS: PEPCID TAB 20 MG PO SCH ×2 (18:15→20:33)
[2019-07-31] MEDS: MIRALAX POWDER (1 DOSE 17 G) PO SCH (20:32)
[2019-07-31] MEDS: XARELTO PO SCH (20:33)
[2019-07-31] MEDS: ROCEPHIN VIAL 1 GRAM 1 G in NS 100 ML IV + SPIKE MINIBAG* 100 ML IV SCH (20:37)
[2019-07-31] MEDS: ZITHROMAX INJ 500 MG VIAL 500 MG in NS 250 ML IV 250 ML IV SCH (20:38)
[2019-08-01] MEDS: DUONEB 0.5 MG/3 MG (3 mL) NEB SCH ×4 (00:40→17:28)
[2019-08-01] MEDS: SOLU-Medrol 125 MG VIAL IVP SCH ×2 (03:00→08:13)
[2019-08-01 05:58] LABS: BASOPHILS % (AUTO) 0.1 % (0.2-1.0); HEMATOCRIT 34.7 % (42.0-54.0); HEMOGLOBIN 11.5 g/dL (13.5-18.0); LYMPHOCYTES % (AUTO) 6.6 % (21.0-51.0); MEAN CORPUSCULAR HEMOGLOBIN 29.1 pg (27.0-34.0); MEAN CORPUSCULAR HGB CONC 33.1 g/dL (33.0-35.0); MEAN PLATELET VOLUME 9.1 fL (7.4-11.0); MONOCYTES # (AUTO) 0.5 x10^3/uL (0.3-0.8); MONOCYTES % (AUTO) 3.3 % (0.0-13.0); NEUTROPHILS # (AUTO) 13.7 x10^3/uL (2.2-4.8); PLATELET COUNT 267 X10^3/uL (150.0-450.0); RED BLOOD COUNT 3.94 X10^6/uL (4.7-6.0); RED CELL DISTRIBUTION WIDTH 14.3 % (11.6-16.5); WHITE BLOOD COUNT 15.3 X10^3/uL (3.6-10.0)
[2019-08-01 06:14] LABS: ALANINE AMINOTRANSFERASE 14 Units/L (12-78); ALBUMIN 2.6 g/dL (3.4-5.0); ALKALINE PHOSPHATASE 81 Units/L (46-116); ASPARTATE AMINO TRANSFERASE 12 Units/L (15-37); BLOOD UREA NITROGEN 14 mg/dL (7-18); CALCIUM 8.3 mg/dL (8.5-10.1); CARBON DIOXIDE 29.8 mmol/L (21-32); CHLORIDE 102 mmol/L (98-107); COR CA(FOR HYPOALB) 9.4 mg/dL (8.5-10.1); COR NA(FOR HYPERGLY) 139 mmol/L (136-145); CREATININE 0.53 mg/dL (0.70-1.30); MAGNESIUM 1.7 mg/dL (1.7-2.9); SODIUM 138 mmol/L (136-145); TOTAL PROTEIN 6.2 g/dL (6.4-8.2); eGFR NON BLACK RACES > 60 (>60)
[2019-08-01] MEDS: CARDIZEM CD 180 MG 24-HR PO SCH (08:34)
[2019-08-01] MEDS: COLACE CAP 100 MG PO SCH ×2 (08:35→20:15)
[2019-08-01] MEDS: PEPCID TAB 20 MG PO SCH ×2 (08:35→20:26)
[2019-08-01] MEDS: TOPAMAX PO SCH ×2 (08:38→20:16)
[2019-08-01] MEDS: NICOTINE PATCH TD SCH (08:42)
[2019-08-01] MEDS: NORCO 10/325 TAB PO PRN ×3 (09:17→22:05)
[2019-08-01] MEDS ORDERED: K-DUR TAB 20 MEQ PO PRN (09:24)
[2019-08-01] MEDS ORDERED: KLOR-CON PO PRN (09:24)
[2019-08-01] MEDS ORDERED: POTASSIUM CHL 40 MEQ/NS 0.45% 500 ML IV PRN (09:24)
[2019-08-01] MEDS ORDERED: POTASSIUM CHL 60 MEQ/NS 0.45% 500 ML IV PRN (09:24)
[2019-08-01] MEDS ORDERED: MICRO K EXTEN CAP 10 MEQ PO PRN (09:24)
[2019-08-01] MEDS ORDERED: K-RIDER 10 MEQ/NS 100 ML 10 MEQ/100 ML BAG IV PRN (09:24)
[2019-08-01] MEDS ORDERED: POTASSIUM CHLORIDE LIQ 20 MEQ UDC PO PRN (09:24)
--- NOTE | 2019-08-01 09:27 | PCM.PROG ---
Progress Note Progress Note for Day of Date of Exam: 08/01/19 Subjective Subjective: Pt is a 59 yo m admitted for Afib w/ RVR, Pneumonia, COPD exacerbation. He is on diltiazem gtt and was started on PO dilt 180mg yesterday, his rate has improved. Will restart his home Coreg and attempt to wean off the dilt gtt today. SputumCx prelim gram negative rods, will d/c Rocephin and start Cefepime to cover for pseudomonas. D/c solumedrol and start PO prednisone. His potassium was low this morning will supplement per protocol. He is on 2L supplemental O2(BL~2-3L). Continue bronchodilators. Past Medical Family Social History Past Med/Fam/Surg Hx: No changes since H&P Allergies: Allergies No Known Drug Allergies Allergy (Verified 07/30/19 18:16) Review of Systems ROS: No change since H&P Vital Signs and I&O's Vital Signs: Temperature 98.8 F Pulse Rate [Left Brachial] 126 Pulse Rate 110 Respiratory Rate 22 Blood Pressure [Left Arm] 142/98 Blood Pressure [Right Arm] 129/70 Blood Pressure 116/77 O2 Sat by Pulse Oximetry 99 Intake and Output: Intake & Output 07/29/19 07/30/19 07/31/19 08/01/19 23:59 23:59 23:59 23:59 Intake Total 1135 / 1135 2538 / 2538 954 / 954 Output Total 2330 / 2330 Balance 1135 / 1135 208 / 208 954 / 954 Physical Exam Oriented: Normal Eyes: Normal Ear: Normal Nose: Normal Respiratory: Diminished Cardiovascular: Tachycardia and Irregular : Normal Auscultation: Bowel Sounds: Normal Tenderness: Normal Skin: Normal Musculoskeletal: Normal Psychiatric: Normal Speech Pattern: Clear Laboratory and Diagnostics Result Diagrams: 08/01/19 05:08 08/01/19 05:08 Labs: 07/30/19 18:30 Sputum - Expectorated Sputum Sputum Culture - Preliminary 07/30/19 18:30 Sputum - Expectorated Sputum - Final Laboratory WBC 15.3 X10^3/uL (3.6-10.0) H 08/01/19 05:08 RBC 3.94 X10^6/uL (4.7-6.0) L 08/01/19 05:08 Hgb 11.5 g/dL (13.5-18.0) L 08/01/19 05:08 Hct 34.7 % (42.0-54.0) L 08/01/19 05:08 MCV 88.0 fL (80.0-100.0) 08/01/19 05:08 MCH 29.1 pg (27.0-34.0) 08/01/19 05:08 MCHC 33.1 g/dL (33.0-35.0) 08/01/19 05:08 RDW 14.3 % (11.6-16.5) 08/01/19 05:08 Plt Count 267 X10^3/uL (150.0-450.0) 08/01/19 05:08 Plt Count Comment Adequate (ADEQUATE) 07/31/19 07:39 MPV 9.1 fL (7.4-11.0) 08/01/19 05:08 Neut % (Auto) 90.0 % (42.0-75.0) H 08/01/19 05:08 Lymph % (Auto) 6.6 % (21.0-51.0) L 08/01/19 05:08 [place] % (Auto) 3.3 % (0.0-13.0) 08/01/19 05:08 Eos % (Auto) 0.0 % (0.9-2.9) L 08/01/19 05:08 Baso % (Auto) 0.1 % (0.2-1.0) L 08/01/19 05:08 Neut # (Auto) 13.7 x10^3/uL (2.2-4.8) H 08/01/19 05:08 Lymph # (Auto) 1.0 X10^3/uL (1.3-2.9) L 08/01/19 05:08 [place] # (Auto) 0.5 x10^3/uL (0.3-0.8) 08/01/19 05:08 Eos # (Auto) 0.0 x10^3/uL (0.0-0.2) 08/01/19 05:08 Baso # (Auto) 0.0 X10^3/uL (0.0-0.1) 08/01/19 05:08 Absolute Nucleated RBC 0.0 /100WBC 08/01/19 05:08 Total Counted 100 07/31/19 07:39 Neutrophils % (Manual) 93 % (39-76) H 07/31/19 07:39 Lymphocytes % (Manual) 6 % (13-43) L 07/31/19 07:39 Monocytes % (Manual) 1 % (4-9) L 07/31/19 07:39 Plt Morphology Comment Normal (NORMAL) 07/31/19 07:39 RBC Morphology Normal (NORMAL) 07/31/19 07:39 D-Dimer 461 ng/mL (0-400) H* 07/30/19 18:30 Sodium 138 mmol/L (136-145) 08/01/19 05:08 Corrected Sodium 139 mmol/L (136-145) 08/01/19 05:08 Potassium 3.2 mmol/L (3.5-5.1) L 08/01/19 05:08 Chloride 102 mmol/L (98-107) 08/01/19 05:08 Carbon Dioxide 29.8 mmol/L (21-32) 08/01/19 05:08 BUN 14 mg/dL (7-18) 08/01/19 05:08 Creatinine 0.53 mg/dL (0.70-1.30) L 08/01/19 05:08 Est GFR (MDRD) Af Amer > 60 (>60) 08/01/19 05:08 Est GFR (MDRD) Non-Af > 60 (>60) 08/01/19 05:08 Glucose 142 mg/dL (65-99) H 08/01/19 05:08 Calcium 8.3 mg/dL (8.5-10.1) L 08/01/19 05:08 Corrected Calcium 9.4 mg/dL (8.5-10.1) 08/01/19 05:08 Magnesium 1.7 mg/dL (1.7-2.9) 08/01/19 05:08 Total Bilirubin 0.20 mg/dL (0.2-1.0) 08/01/19 05:08 AST 12 Units/L (15-37) L 08/01/19 05:08 ALT 14 Units/L (12-78) 08/01/19 05:08 Alkaline Phosphatase 81 Units/L (46-116) 08/01/19 05:08 Creatine Kinase 32 Units/L (39-308) L 07/30/19 18:30 CK-MB (CK-2) 1.2 ng/mL (0-4.0) 07/30/19 18:30 CK/CKMB % Calc 3.8 % (<4) 07/30/19 18:30 Troponin I < 0.02 ng/mL (0-1.5) 07/30/19 18:30 B-Natriuretic Peptide 57.8 pg/mL (0-79) 07/30/19 18:30 Total Protein 6.2 g/dL (6.4-8.2) L 08/01/19 05:08 Albumin 2.6 g/dL (3.4-5.0) L 08/01/19 05:08 Globulin 3.6 g/dL (2.5-4.5) 08/01/19 05:08 Albumin/Globulin Ratio 0.7 Ratio (1.1-2.1) L 08/01/19 05:08 Plan (1) Atrial fibrillation with RVR: Status: Acute Plan: Dilt XR 180mg, attempt to wean off dilt gtt today start home coreg On xarelto (2) Pneumonia: Status: Acute Qualifiers: Laterality: bilateral Lung location: lower lobe of lung Pneumonia type: due to other aerobic Gram-negative bacteria Qualified Code(s): J15.6 - Pneumonia due to other Gram-negative bacteria Plan: SputumCx:gram negative rods Cefepime+Azithromycin (3) Acute exacerbation of chronic obstructive pulmonary disease (COPD): Status: Acute Plan: Continue steroids, bronchodilators.
[2019-08-01] MEDS: COREG TAB 25 MG PO SCH ×2 (09:55→20:16)
[2019-08-01] MEDS ORDERED: TESSALON PERLES PO PRN (09:58)
[2019-08-01] MEDS: MAXIPIME VIAL 2 GRAMS 2 G in NS 100 ML IV + SPIKE MINIBAG* 100 ML IV SCH ×3 (10:32→22:06)
[2019-08-01] MEDS ORDERED: MAALOX or MYLANTA PO PRN (12:34)
[2019-08-01] MEDS: MAGNESIUM SULFATE 1 GRAM/100 mL PREMIX 1 GM/100 ML BAG IV PRN ×2 (13:29→14:41)
[2019-08-01] MEDS ORDERED: MAALOX or MYLANTA ONE (13:57)
[2019-08-01] MEDS ORDERED: AMBIEN PO PRN (20:03)
[2019-08-01] MEDS ORDERED: ROBITUSSIN DM ONE (20:08)
[2019-08-01] MEDS ORDERED: AMBIEN ONE (20:08)
[2019-08-01] MEDS: ROBITUSSIN DM PO PRN (20:15)
[2019-08-01] MEDS: MIRALAX POWDER (1 DOSE 17 G) PO SCH (20:16)
[2019-08-01] MEDS: XARELTO PO SCH (20:16)
[2019-08-01] MEDS: ZITHROMAX INJ 500 MG VIAL 500 MG in NS 250 ML IV 250 ML IV SCH (20:16)
[2019-08-02] MEDS: ROBITUSSIN DM PO PRN (03:00)
[2019-08-02] MEDS: NORCO 10/325 TAB PO PRN ×4 (04:15→22:15)
[2019-08-02] MEDS: MAXIPIME VIAL 2 GRAMS 2 G in NS 100 ML IV + SPIKE MINIBAG* 100 ML IV SCH ×3 (05:33→22:47)
[2019-08-02 06:01] LABS: BASOPHILS % (AUTO) 0 % (0.2-1.0); HEMATOCRIT 35.5 % (42.0-54.0); HEMOGLOBIN 11.6 g/dL (13.5-18.0); LYMPHOCYTES # (AUTO) 1.3 X10^3/uL (1.3-2.9); LYMPHOCYTES % (AUTO) 8.7 % (21.0-51.0); MEAN CORPUSCULAR HEMOGLOBIN 28.8 pg (27.0-34.0); MEAN CORPUSCULAR HGB CONC 32.7 g/dL (33.0-35.0); MEAN CORPUSCULAR VOLUME 88.2 fL (80.0-100.0); MEAN PLATELET VOLUME 8.3 fL (7.4-11.0); MONOCYTES # (AUTO) 0.9 x10^3/uL (0.3-0.8); MONOCYTES % (AUTO) 6.2 % (0.0-13.0); NEUTROPHILS # (AUTO) 12.9 x10^3/uL (2.2-4.8); NEUTROPHILS % (AUTO) 85.1 % (42.0-75.0); PLATELET COUNT 281 X10^3/uL (150.0-450.0); RED BLOOD COUNT 4.03 X10^6/uL (4.7-6.0); RED CELL DISTRIBUTION WIDTH 14.8 % (11.6-16.5); WHITE BLOOD COUNT 15.2 X10^3/uL (3.6-10.0)
[2019-08-02] MEDS: DUONEB 0.5 MG/3 MG (3 mL) NEB SCH ×4 (06:06→18:14)
[2019-08-02 06:32] LABS: ALANINE AMINOTRANSFERASE 31 Units/L (12-78); ALBUMIN 2.5 g/dL (3.4-5.0); ALKALINE PHOSPHATASE 78 Units/L (46-116); ASPARTATE AMINO TRANSFERASE 32 Units/L (15-37); BLOOD UREA NITROGEN 19 mg/dL (7-18); CARBON DIOXIDE 30.3 mmol/L (21-32); CHLORIDE 103 mmol/L (98-107); COR CA(FOR HYPOALB) 9.2 mg/dL (8.5-10.1); COR NA(FOR HYPERGLY) 138 mmol/L (136-145); SODIUM 138 mmol/L (136-145); eGFR NON BLACK RACES > 60 (>60)
[2019-08-02] MEDS: COREG TAB 25 MG PO SCH ×2 (10:50→21:23)
[2019-08-02] MEDS: NICOTINE PATCH TD SCH (10:51)
[2019-08-02] MEDS: TOPAMAX PO SCH ×2 (10:51→21:45)
[2019-08-02] MEDS: PREDNISONE TAB 20 MG PO SCH (10:51)
[2019-08-02] MEDS: COLACE CAP 100 MG PO SCH ×2 (10:51→21:22)
[2019-08-02] MEDS: PEPCID TAB 20 MG PO SCH ×2 (10:51→21:24)
[2019-08-02] MEDS: CARDIZEM CD 180 MG 24-HR PO SCH (10:51)
--- NOTE | 2019-08-02 11:13 | PCM.PROG ---
Progress Note Progress Note for Day of Date of Exam: 08/02/19 Subjective Subjective: Pt is a 59 yo m admitted for Afib w/ RVR, Pneumonia, COPD exacerbation. He was able to have his diltiazem gtt discontinued and has been rate controlled with PO dilt 180mg. SputumCx prelim gram negative rods, speciation pending. Abx Cefepime+Azithromycin. He is on 2L supplemental O2(BL~2-3L). Continue bronchodilators. Past Medical Family Social History Past Med/Fam/Surg Hx: No changes since H&P Allergies: Allergies No Known Drug Allergies Allergy (Verified 07/30/19 18:16) Review of Systems ROS: No change since H&P Vital Signs and I&O's Vital Signs: Temperature 98.3 F Pulse Rate [Left Brachial] 126 Pulse Rate 73 Respiratory Rate 18 Blood Pressure [Left Arm] 142/98 Blood Pressure [Right Arm] 129/70 Blood Pressure 126/79 O2 Sat by Pulse Oximetry 100 Intake and Output: Intake & Output 07/30/19 07/31/19 08/01/19 08/02/19 23:59 23:59 23:59 23:59 Intake Total 1135 / 1135 2538 / 2538 2706 / 2706 Output Total 2330 / 2330 1701 / 1701 300 / 300 Balance 1135 / 1135 208 / 208 1005 / 1005 -300 / -300 Physical Exam Oriented: Normal Eyes: Normal Ear: Normal Nose: Normal Respiratory: Diminished Cardiovascular: Tachycardia and Irregular : Normal Auscultation: Bowel Sounds: Normal Tenderness: Normal Skin: Normal Musculoskeletal: Normal Psychiatric: Normal Speech Pattern: Clear and Appropriate Laboratory and Diagnostics Result Diagrams: 08/02/19 05:03 08/02/19 05:03 Labs: 07/30/19 18:30 Sputum - Expectorated Sputum Sputum Culture - Final Streptococcus Pneumoniae Acinetobacter Lwoffii 07/30/19 18:30 Sputum - Expectorated Sputum - Final Laboratory WBC 15.2 X10^3/uL (3.6-10.0) H 08/02/19 05:03 RBC 4.03 X10^6/uL (4.7-6.0) L 08/02/19 05:03 Hgb 11.6 g/dL (13.5-18.0) L 08/02/19 05:03 Hct 35.5 % (42.0-54.0) L 08/02/19 05:03 MCV 88.2 fL (80.0-100.0) 08/02/19 05:03 MCH 28.8 pg (27.0-34.0) 08/02/19 05:03 MCHC 32.7 g/dL (33.0-35.0) L 08/02/19 05:03 RDW 14.8 % (11.6-16.5) 08/02/19 05:03 Plt Count 281 X10^3/uL (150.0-450.0) 08/02/19 05:03 Plt Count Comment Adequate (ADEQUATE) 07/31/19 07:39 MPV 8.3 fL (7.4-11.0) 08/02/19 05:03 Neut % (Auto) 85.1 % (42.0-75.0) H 08/02/19 05:03 Lymph % (Auto) 8.7 % (21.0-51.0) L 08/02/19 05:03 [place] % (Auto) 6.2 % (0.0-13.0) 08/02/19 05:03 Eos % (Auto) 0.0 % (0.9-2.9) L 08/02/19 05:03 Baso % (Auto) 0 % (0.2-1.0) L 08/02/19 05:03 Neut # (Auto) 12.9 x10^3/uL (2.2-4.8) H 08/02/19 05:03 Lymph # (Auto) 1.3 X10^3/uL (1.3-2.9) 08/02/19 05:03 [place] # (Auto) 0.9 x10^3/uL (0.3-0.8) H 08/02/19 05:03 Eos # (Auto) 0.0 x10^3/uL (0.0-0.2) 08/02/19 05:03 Baso # (Auto) 0.0 X10^3/uL (0.0-0.1) 08/02/19 05:03 Absolute Nucleated RBC 0.1 /100WBC 08/02/19 05:03 Total Counted 100 07/31/19 07:39 Neutrophils % (Manual) 93 % (39-76) H 07/31/19 07:39 Lymphocytes % (Manual) 6 % (13-43) L 07/31/19 07:39 Monocytes % (Manual) 1 % (4-9) L 07/31/19 07:39 Plt Morphology Comment Normal (NORMAL) 07/31/19 07:39 RBC Morphology Normal (NORMAL) 07/31/19 07:39 D-Dimer 461 ng/mL (0-400) H* 07/30/19 18:30 Sodium 138 mmol/L (136-145) 08/02/19 05:03 Corrected Sodium 138 mmol/L (136-145) 08/02/19 05:03 Potassium 3.7 mmol/L (3.5-5.1) 08/02/19 05:03 Chloride 103 mmol/L (98-107) 08/02/19 05:03 Carbon Dioxide 30.3 mmol/L (21-32) 08/02/19 05:03 BUN 19 mg/dL (7-18) H 08/02/19 05:03 Creatinine 0.50 mg/dL (0.70-1.30) L 08/02/19 05:03 Est GFR (MDRD) Af Amer > 60 (>60) 08/02/19 05:03 Est GFR (MDRD) Non-Af > 60 (>60) 08/02/19 05:03 Glucose 114 mg/dL (65-99) H 08/02/19 05:03 Calcium 8.0 mg/dL (8.5-10.1) L 08/02/19 05:03 Corrected Calcium 9.2 mg/dL (8.5-10.1) 08/02/19 05:03 Magnesium 2.0 mg/dL (1.7-2.9) 08/02/19 05:03 Total Bilirubin 0.10 mg/dL (0.2-1.0) L 08/02/19 05:03 AST 32 Units/L (15-37) 08/02/19 05:03 ALT 31 Units/L (12-78) 08/02/19 05:03 Alkaline Phosphatase 78 Units/L (46-116) 08/02/19 05:03 Creatine Kinase 32 Units/L (39-308) L 07/30/19 18:30 CK-MB (CK-2) 1.2 ng/mL (0-4.0) 07/30/19 18:30 CK/CKMB % Calc 3.8 % (<4) 07/30/19 18:30 Troponin I < 0.02 ng/mL (0-1.5) 07/30/19 18:30 B-Natriuretic Peptide 57.8 pg/mL (0-79) 07/30/19 18:30 Total Protein 6.0 g/dL (6.4-8.2) L 08/02/19 05:03 Albumin 2.5 g/dL (3.4-5.0) L 08/02/19 05:03 Globulin 3.5 g/dL (2.5-4.5) 08/02/19 05:03 Albumin/Globulin Ratio 0.7 Ratio (1.1-2.1) L 08/02/19 05:03 Plan (1) Atrial fibrillation with RVR: Status: Acute Plan: Dilt XR 180mg,Coreg, rate controlled On xarelto (2) Pneumonia: Status: Acute Qualifiers: Laterality: bilateral Lung location: lower lobe of lung Pneumonia type: due to other aerobic Gram-negative bacteria Qualified Code(s): J15.6 - Pneumonia due to other Gram-negative bacteria Plan: SputumCx:gram negative rods Cefepime+Azithromycin (3) Acute exacerbation of chronic obstructive pulmonary disease (COPD): Status: Acute Plan: Continue steroids, bronchodilators.
[2019-08-02] MEDS ORDERED: NS 1000 ML 1,000 ML ONE (15:20)
[2019-08-02] MEDS: MIRALAX POWDER (1 DOSE 17 G) PO SCH (21:24)
[2019-08-02] MEDS: XARELTO PO SCH (21:24)
[2019-08-02] MEDS: ZITHROMAX INJ 500 MG VIAL 500 MG in NS 250 ML IV 250 ML IV SCH (21:45)
[2019-08-03] MEDS: DUONEB 0.5 MG/3 MG (3 mL) NEB SCH ×2 (00:09→05:40)
[2019-08-03] MEDS: NORCO 10/325 TAB PO PRN (04:15)
[2019-08-03] MEDS ORDERED: MAXIPIME VIAL 1 GRAM ONE (06:15)
[2019-08-03] MEDS: MAXIPIME VIAL 2 GRAMS 2 G in NS 100 ML IV + SPIKE MINIBAG* 100 ML IV SCH (06:24)
[2019-08-03] MEDS ORDERED: NS 100 ML IV 100 ML IV ONE (06:26)
[2019-08-03 06:28] LABS: BASOPHILS % (AUTO) 0.2 % (0.2-1.0); EOSINOPHILS % (AUTO) 0.2 % (0.9-2.9); HEMATOCRIT 37.5 % (42.0-54.0); HEMOGLOBIN 12.2 g/dL (13.5-18.0); LYMPHOCYTES # (AUTO) 3.5 X10^3/uL (1.3-2.9); LYMPHOCYTES % (AUTO) 29.6 % (21.0-51.0); MEAN CORPUSCULAR HEMOGLOBIN 28.8 pg (27.0-34.0); MEAN CORPUSCULAR HGB CONC 32.4 g/dL (33.0-35.0); MEAN CORPUSCULAR VOLUME 88.6 fL (80.0-100.0); MEAN PLATELET VOLUME 7.7 fL (7.4-11.0); MONOCYTES # (AUTO) 1.6 x10^3/uL (0.3-0.8); MONOCYTES % (AUTO) 13.1 % (0.0-13.0); NEUTROPHILS # (AUTO) 6.8 x10^3/uL (2.2-4.8); NEUTROPHILS % (AUTO) 56.9 % (42.0-75.0); PLATELET COUNT 301 X10^3/uL (150.0-450.0); RED BLOOD COUNT 4.23 X10^6/uL (4.7-6.0); RED CELL DISTRIBUTION WIDTH 14.8 % (11.6-16.5); WHITE BLOOD COUNT 11.9 X10^3/uL (3.6-10.0)
[2019-08-03 06:44] LABS: ALANINE AMINOTRANSFERASE 49 Units/L (12-78); ALBUMIN 2.4 g/dL (3.4-5.0); ALKALINE PHOSPHATASE 81 Units/L (46-116); ASPARTATE AMINO TRANSFERASE 32 Units/L (15-37); BLOOD UREA NITROGEN 20 mg/dL (7-18); CALCIUM 7.9 mg/dL (8.5-10.1); CARBON DIOXIDE 34.1 mmol/L (21-32); CHLORIDE 105 mmol/L (98-107); COR CA(FOR HYPOALB) 9.2 mg/dL (8.5-10.1); CREATININE 0.54 mg/dL (0.70-1.30); MAGNESIUM 1.9 mg/dL (1.7-2.9); SODIUM 141 mmol/L (136-145); TOTAL PROTEIN 5.6 g/dL (6.4-8.2); eGFR NON BLACK RACES > 60 (>60)
[2019-08-03] MEDS: NICOTINE PATCH TD SCH (08:37)
[2019-08-03] MEDS: COREG TAB 25 MG PO SCH (08:37)
[2019-08-03] MEDS: CARDIZEM CD 180 MG 24-HR PO SCH (08:37)
[2019-08-03] MEDS: COLACE CAP 100 MG PO SCH (08:37)
[2019-08-03] MEDS: PEPCID TAB 20 MG PO SCH (08:37)
[2019-08-03] MEDS: PREDNISONE TAB 20 MG PO SCH (08:38)
[2019-08-03] MEDS: TOPAMAX PO SCH (08:38)
[2019-08-03] MEDS ORDERED: LINZESS PO ONE (08:55)
[2019-08-03 12:08] VITALS: BP 112/87
== END 2019-08-03 12:30 | disposition home or self-care (01) | DRG 308 ==
LOC: ER 18:04 → ICU 19:36
PROVIDERS: ADMIT Family Medicine; ATTEND Obstetrics & Gynecology Obstetrics
DX: J44.1 Chronic obstructive pulmonary disease with (acute) exacerbation; J15.6 Pneumonia due to other Gram-negative bacteria; K59.09 Other constipation; I10 Essential (primary) hypertension; K21.9 Gastro-esophageal reflux disease without esophagitis; I48.91 Unspecified atrial fibrillation; R06.02 Shortness of breath; R94.31 Abnormal electrocardiogram [ECG] [EKG]; I25.10 Atherosclerotic heart disease of native coronary artery without angina pectoris; J13 Pneumonia due to Streptococcus pneumoniae
CPT/HCPCS: 36415; 71010; 71045; 80053; 82550; 82553; 83735; 83880; 84484; 85025; 85378; 87070; 87077; 87186; 87205; 93005; 94640; 96365; 96374; 96375; 99284; A4216; A4222; J0456; J0692; J0696; J2930; J3475; J3480; J3490; J7030; J7050; J7512; J7620; Q0169

== ENCOUNTER 2020-04-26 22:04 | Inpatient (IN) ==
[2020-04-26] MEDS ORDERED: DUONEB 0.5 MG/3 MG (3 mL) NEB ONE ×2 (22:17→22:24)
--- NOTE | 2020-04-26 22:21 | DR.SOBA ---
HPI Time Seen Time Seen by Provider: 04/26/20 22:18 HPI Comment HPI Comment: PATIENT IS 60YR OLD MALE WITH HISTORY OF COPD ON HOME OXYGEN 3L/M IN ER VIA EMS FOR INCREASING SOB, COUGH HEADACHE AND LOW OXYGEN SATURATION TIMES ONE DAY. NO FEVER. COUGH PRODUCTIVE WITH THICK YELLOW SPUTUM. HE WAS GIVEN NEB TREATMENT BY EMS AND HIS O2 INCREASE. HE IS HAVING HEADACHE 10/10 RADIATING TO THE NECK. SOME CHEST TIGHTNESS PRESENT. Complaints Chief Complaint Doctors Comments: HERE VIA EMS WITH INCREASING SOB AND HEADACHE WITH DECREASE O2 SATURATION TIMES ONE DAY. COVID-19 Coronavirus risk:travel/contact w/high risk person: No Has patient experienced Coronavirus symptoms: Yes Coronavirus symptoms experienced: Coughing and Shortness of Breath Reviewed Nurses Notes Reviewed: Yes Source History Provided: Patient and EMS Mode of Arrival Mode of Arrival: EMS Duration Duration: Days Context Onset:: At Rest PE Risk Factors:: None History of:: COPD Currently on:: Inhaled Bronchodilators Prehospital Care:: O2 and Inhaled B2 Modifying Factors Worsens:: Exertion and Lying Flat Improves:: Sitting Up Associated Signs and Symptoms Associated Signs and Symptoms: Wheeze, Cough and Chest Pain If Chest Pain Quality: Pleuritic Location: Substernal If Cough Cough: Nonproductive and Yellow Other History Other History: COPD. PMH PMH Past Medical History: CHF, COPD, Coronary Artery Disease, GERD and Hypertension Past Surgical History: Yes Surgical History: Cholecystectomy and Ortho Surgery Family History Family Medical History: [place], Coronary Artery Disease, Heart Failure, Sudden Cardiac and Hypertension Social History Do you use any recreational Drugs:: No ROS Review of Systems Constitutional: See HPI, Malaise, Weakness and Fatigue; negative Fever Eyes: No Symptoms Reported and See HPI; negative Blurred Vision and Diplopia ENTM: See HPI and Nose Congestion; negative Nose Discharge Respiratoy: See HPI, Productive Cough, Short of Breath and Wheezing Cardiovascular: See HPI and Chest Pain Gastrointestinal/Abdominal: No Symptoms Reported and See HPI; negative Abdominal Pain, Diarrhea and Vomiting Genitourinary: No Symptoms Reported and See HPI; negative Dysuria, Frequency and Hematuria Neurological: See HPI, Headache and Weakness; negative Dizziness Musculoskeletal: See HPI and Muscle Pain; negative Back Pain Integumentary: No Symptoms Reported, See HPI and Change in Color; negative Rash and Juandice Hematologic/Lymphatic: See HPI and Easy Bruising Endocrine: No Symptoms Reported and See HPI Psychiatric: No Symptoms Reported and See HPI All Other Systems: Reviewed and Negative PE Vital Signs Vitals: Temperature 98.3 F Pulse Rate 79 Respiratory Rate 23 Blood Pressure [Left Arm] 142/98 Blood Pressure [Right Arm] 134/83 Blood Pressure 128/78 O2 Sat by Pulse Oximetry 88 General Limitations: No Limitations General Appearance: Alert and In Distress Head Head Exam: Normal Inspection and Atraumatic Eyes Eye exam: Normal Appearance and PERRL; negative Scleral Icterus and Conjunctival Injection ENT ENT Exam: Normal Exam, Normal Oropharynx, Normal External Ear Exam and TM's Normal Bilaterally Neck Neck Exam: Normal Inspection and Trachea Midline; negative Tenderness and Lymphadenopathy Chest Chest Inspection: Normal Inspection and Symmetric Chest Wall Rise; negative Tenderness Respiratory Respiratory Exam: Normal Lung Sounds Bilat, Accessory Muscle Use and Respiratory Distress; negative Chest Wall Tenderness Respiratory Exam: Bilateral: Wheezing and Bilateral: Rhonchi and Lower: Wheezing and Lower: Rhonchi Cardiovascular Cardiovascular Exam: Regular Rate, Normal Rhythm and Normal Heart Sounds; negative Systolic Murmur and Diastolic Murmur Abdominal Exam Abdominal Exam: Normal Inspection, Normal Bowel Sounds and Soft; negative Tenderness Extremities Extremities Exam: Normal Inspection and Normal Capillary Refill; negative Tenderness and Calf Tenderness Back Back Exam: Normal Inspection; negative (R) CVA Tenderness and (L) CVA Tenderness Neurologic Neurological Exam: Alert, Oriented X3 and CN II-XII Intact; negative Motor Sensory Deficit Psychiatric Psychiatric Exam: Normal Affect and Anxious Skin Skin Exam: Warm, Dry, Intact and Normal Color MDM Differential Diagnosis Differential Diagnosis: Bronchitis, CHF, COPD, Dysrhythmia, Hyponatremia, Mycardial Infarction, Pneumonia, Pneumothorax, Respiratory Insufficiency and URI COURSE Treatment Treatment: SEE ORDERS. NS 100CC/HR, DECADRON 6MG IV, DUO NEB, ONFIRM 1GM IVPB, ZOSYN 3.375MG IVPB AND ZITHROMAX 500MG IVPB IN ER. Reevaluation 1st: Improved Consultation Consultation Comments: DISCUSSED PATIENT WITH DR. MA, SHE WILL ADMIT PATIENT. Education/Counseling Education/Counseling: Patient Educated On: Diagnosis ROR Labs Reviewed Laboratory Results Reviewed?: Yes Result Diagrams: 05/02/20 05:20 05/02/20 05:20 Laboratory: 04/27/20 01:17 Blood Blood Culture - Final 04/26/20 22:37 Blood Blood Culture - Final WBC 10.1 X10^3/uL (3.6-10.0) H 04/26/20 22:37 RBC 4.24 X10^6/uL (4.7-6.0) L 04/26/20 22:37 Hgb 12.5 g/dL (13.5-18.0) L 04/26/20 22:37 Hct 39.4 % (42.0-54.0) L 04/26/20 22: MCV 93.0 fL (80.0-100.0) 04/26/20 22: MCH 29.4 pg (27.0-34.0) 04/26/20: MCHC 31.6 g/dL (33.0-35.0) L 04/26/20: RDW 15.2 % (11.6-16.5) 04/26/20 22: Plt Count 173 X10^3/uL (150.0-450.0) 04/26/20: MPV 7.8 fL (7.4-11.0) 04/26/20 22:37 Neut % (Auto) 80.9 % (42.0-75.0) H 04/26/20 22:37 Lymph % (Auto) 10.8 % (21.0-51.0) L 04/26/20 22:37 [place] % (Auto) 5.6 % (0.0-13.0) 04/26/20 22: Eos % (Auto) 1.8 % (0.9-2.9) 04/26/20: Baso % (Auto) 0.9 % (0.2-1.0) 04/26/20 22:37 Neut # (Auto) 8.2 x10^3/uL (2.2-4.8) H 04/26/20 22:37 Lymph # (Auto) 1.1 X10^3/uL (1.3-2.9) L 04/26/20 22:37 [place] # (Auto) 0.6 x10^3/uL (0.3-0.8) 04/26/20 22:37 Eos # (Auto) 0.2 x10^3/uL (0.0-0.2) 04/26/20 22:37 Baso # (Auto) 0.1 X10^3/uL (0.0-0.1) 04/26/20 22:37 Absolute Nucleated RBC 0.0 /100WBC 04/26/20 22:37 Sample Site Rbra 04/26/20 23:49 ABG pH 7.280 (7.35-7.45) L 04/26/20 23:49 ABG pCO2 84.0 mmHg (35.0-45.0) H* 04/26/20 23:49 ABG pO2 77.0 mmHg (80.0-100.0) L 04/26/20 23:49 ABG HCO3 39.5 mmol/L (22-26) H* 04/26/20 23:49 ABG O2 Saturation 93.0 % (90-100) 04/26/20 23:49 ABG Base Excess 9.6 mmol/L (-2.0-2.0) H 04/26/20 23:49 Alexei Test N/a 04/26/20 23:49 A-a Gradient 103.0 mmHg 04/26/20 23:49 FiO2 40.0 04/26/20 23:49 Blood Gas Comments Pt starr well eb 04/26/20 23:49 Sodium 141 mmol/L (136-145) 04/26/20 22:37 Corrected Sodium 142 mmol/L (136-145) 04/26/20 22:37 Potassium 4.4 mmol/L (3.5-5.1) 04/26/20 22:37 Chloride 105 mmol/L (98-107) 04/26/20 22:37 Carbon Dioxide 37.5 mmol/L (21-32) H 04/26/20 22:37 BUN 20 mg/dL (7-18) H 04/26/20 22:37 Creatinine 0.70 mg/dL (0.70-1.30) 04/26/20 22:37 Est GFR (MDRD) Af Amer > 60 (>60) 04/26/20 22:37 Est GFR (MDRD) Non-Af > 60 (>60) 04/26/20 22:37 Glucose 131 mg/dL (65-99) H 04/26/20 22:37 Calcium 8.2 mg/dL (8.5-10.1) L 04/26/20 22:37 Corrected Calcium 8.8 mg/dL (8.5-10.1) 04/26/20 22:37 Magnesium 2.3 mg/dL (1.7-2.9) 04/26/20 22:37 Ferritin 89 ng/mL (26-388) 04/26/20 22:37 Total Bilirubin 0.40 mg/dL (0.2-1.0) 04/26/20 22:37 AST 19 Units/L (15-37) 04/26/20 22:37 ALT 18 Units/L (12-78) 04/26/20 22:37 Alkaline Phosphatase 96 Units/L (46-116) 04/26/20 22:37 Creatine Kinase 67 Units/L (39-308) 04/26/20 22:37 CK-MB (CK-2) 3.0 ng/mL (0-4.0) 04/26/20 22:37 CK/CKMB % Calc 4.5 % (<4) 04/26/20 22:37 Troponin I < 0.02 ng/mL (0-1.5) 04/26/20 22:37 C-Reactive Protein 8.90 mg/L (0-3.0) H 04/26/20 22:37 Total Protein 7.4 g/dL (6.4-8.2) 04/26/20 22:37 Albumin 3.2 g/dL (3.4-5.0) L 04/26/20 22:37 Globulin 4.2 g/dL (2.5-4.5) 04/26/20 22:37 Albumin/Globulin Ratio 0.8 Ratio (1.1-2.1) L 04/26/20 22:37 Digoxin 0.37 ng/mL (0.9-2) L 04/26/20 22:37 SARS-CoV-2 (PCR) Negative (NEGATIVE) 04/26/20 23:57 XRAY XRAY Interpreted by: Radiologist (REPORT NOTED AND DISCUSSED WITH PATIENT.) and Self EKG Rate: 81 [place]: Normal Rhythm: NSR and PVCs Block: None Hypertrophy: LVH ST: Nonsp Opioid Opioid Risk Tool Personal Hx of Substance Abuse: Alcohol Age (Bong box if 16-45): No History of Preadolescent Sexual Abuse: No Total: 0 Total Score Risk Category: Low Risk Copyright: Zach BROWN predicting aberrant behaviors Diagnosis Discharge Problem: COPD exacerbation, Pleural effusion, Insufficiency, respiratory, acute, Hypercapnia Pneumonia Qualifiers: Pneumonia type: due to unspecified organism Laterality: bilateral Lung location: lower lobe of lung Qualified Code(s): J18.9 - Pneumonia, unspecified organism Instructions Instructions: Fall Prevention in the Home, Adult, Bicv-zq-Urhp Shortness of Breath, Adult, Tzrl-jj-Vbly Steps to Quit Smoking, Hwsm-ap-[id number] Chronic Obstructive Pulmonary Disease Exacerbation, Uclu-ae-Lcwx Constipation, Adult, Isdv-hb-Qquz Hypertension, Bbnm-fb-Njiy Heart Failure, Yojs-lm-Dspm Community-Acquired Pneumonia, Adult, Jjsr-du-Bvka Forms: Precautions for COVID19 Patient Portal Social Distancing
[2020-04-26] MEDS ORDERED: DECADRON INJ PRESERVATIVE-FREE IVP ONE (22:25)
[2020-04-26 22:32] LABS: ABG BASE EXCESS 8.2 mmol/L (-2.0-2.0)
[2020-04-26 22:34] LABS: ABG HCO3 37.5 mmol/L (22-26)
--- NOTE | 2020-04-26 22:42 | RAD ---
HISTORYSOBSTUDYCHEST, 1 [id number]/03/2020FINDINGSThe trachea is midline. The cardiac silhouette is enlarged.. There is mild elevation of the left hemidiaphragm. Bibasilar subsegmental atelectasis and/or infiltrate.. Suspect small bilateral pleural effusions. The bony thorax is unremarkable.IMPRESSIONMild cardiomegaly with COPD.Bibasilar subsegmental atelectasis and/or infiltrate with suspected small bilateral pleural effusions.Electronically signed by: Sarwat Bradley (Apr 26, 2020 22:41:31)
[2020-04-26 22:43] LABS: BASOPHILS # (AUTO) 0.1 X10^3/uL (0.0-0.1); BASOPHILS % (AUTO) 0.9 % (0.2-1.0); EOSINOPHILS # (AUTO) 0.2 x10^3/uL (0.0-0.2); EOSINOPHILS % (AUTO) 1.8 % (0.9-2.9); HEMATOCRIT 39.4 % (42.0-54.0); HEMOGLOBIN 12.5 g/dL (13.5-18.0); LYMPHOCYTES # (AUTO) 1.1 X10^3/uL (1.3-2.9); LYMPHOCYTES % (AUTO) 10.8 % (21.0-51.0); MEAN CORPUSCULAR HEMOGLOBIN 29.4 pg (27.0-34.0); MEAN CORPUSCULAR HGB CONC 31.6 g/dL (33.0-35.0); MEAN PLATELET VOLUME 7.8 fL (7.4-11.0); MONOCYTES # (AUTO) 0.6 x10^3/uL (0.3-0.8); MONOCYTES % (AUTO) 5.6 % (0.0-13.0); NEUTROPHILS # (AUTO) 8.2 x10^3/uL (2.2-4.8); NEUTROPHILS % (AUTO) 80.9 % (42.0-75.0); PLATELET COUNT 173 X10^3/uL (150.0-450.0); RED BLOOD COUNT 4.24 X10^6/uL (4.7-6.0); RED CELL DISTRIBUTION WIDTH 15.2 % (11.6-16.5); WHITE BLOOD COUNT 10.1 X10^3/uL (3.6-10.0)
[2020-04-26 23:00] LABS: BLOOD UREA NITROGEN 20 mg/dL (7-18); CALCIUM 8.2 mg/dL (8.5-10.1); CARBON DIOXIDE 37.5 mmol/L (21-32); CHLORIDE 105 mmol/L (98-107); COR NA(FOR HYPERGLY) 142 mmol/L (136-145); SODIUM 141 mmol/L (136-145); TROPONIN I < 0.02 ng/mL (0-1.5); eGFR NON BLACK RACES > 60 (>60)
[2020-04-26 23:05] LABS: ALANINE AMINOTRANSFERASE 18 Units/L (12-78); ALBUMIN 3.2 g/dL (3.4-5.0); ALKALINE PHOSPHATASE 96 Units/L (46-116); ASPARTATE AMINO TRANSFERASE 19 Units/L (15-37); CKMB % 4.5 % (<4); COR CA(FOR HYPOALB) 8.8 mg/dL (8.5-10.1); CREATINE KINASE 67 Units/L (39-308); TOTAL PROTEIN 7.4 g/dL (6.4-8.2)
[2020-04-26] MEDS ORDERED: DECADRON INJ IVP ONE (23:07)
[2020-04-26] MEDS ORDERED: OFIRMEV IV 1000 MG VIAL 1,000 MG/100 ML VIAL IV ONE ×2 (23:08→23:10)
[2020-04-26] MEDS ORDERED: DECADRON INJ ONE (23:10)
[2020-04-26 23:56] LABS: ABG BASE EXCESS 9.6 mmol/L (-2.0-2.0)
[2020-04-26 23:57] LABS: ABG HCO3 39.5 mmol/L (22-26)
[2020-04-27] MEDS ORDERED: ZOSYN VIAL 3.375 GRAMS 3.375 G in NS 100 ML IV + SPIKE MINIBAG* 100 ML IV ONE (00:17)
[2020-04-27] MEDS ORDERED: ZOSYN VIAL 3.375 GRAMS IV ONE (00:41)
[2020-04-27] MEDS ORDERED: NS 1000 ML 1,000 ML ONE (00:41)
[2020-04-27] MEDS ORDERED: NS 100 ML IV + SPIKE MINIBAG* 100 ML IV ONE (00:42)
[2020-04-27 01:30] LABS: DIGOXIN 0.37 ng/mL (0.9-2); MAGNESIUM 2.3 mg/dL (1.7-2.9)
[2020-04-27] MEDS ORDERED: ZITHROMAX INJ 500 MG VIAL 500 MG in D5W 250 ML IV 250 ML IV SCH (01:32)
[2020-04-27] MEDS ORDERED: NS 1000 ML 1,000 ML IV ONE (01:33)
[2020-04-27] MEDS ORDERED: NS 250 ML IV 250 ML IV ONE (01:37)
[2020-04-27] MEDS ORDERED: ZITHROMAX INJ 500 MG VIAL IV ONE (01:37)
[2020-04-27 01:40] LABS: ABG BASE EXCESS 8.9 mmol/L (-2.0-2.0)
[2020-04-27 01:41] LABS: ABG ALLEN TEST POS; ABG HCO3 37.6 mmol/L (22-26)
[2020-04-27] MEDS: ZOSYN VIAL 3.375 GRAMS 3.375 G in NS 100 ML IV + SPIKE MINIBAG* 100 ML IV SCH ×4 (01:47→23:15)
[2020-04-27] MEDS ORDERED: NS 1/2 1000 ML IV 1,000 ML IV ONE (02:40)
[2020-04-27] MEDS ORDERED: ZOFRAN INJ 4 MG VIAL IVP ONE (02:48)
[2020-04-27 02:49] VITALS: BMI 32.8
[2020-04-27] MEDS ORDERED: ZOFRAN INJ 4 MG VIAL ONE ×2 (02:56→22:57)
[2020-04-27] MEDS: NS 1/2 1000 ML IV 1,000 ML IV SCH ×2 (03:31→17:18)
[2020-04-27] MEDS: NORCO 10/325 TAB PO PRN ×2 (03:46→09:54)
[2020-04-27] MEDS: REMERON PO SCH ×2 (03:47→21:47)
[2020-04-27 06:22] LABS: BASOPHILS % (AUTO) 0.3 % (0.2-1.0); HEMATOCRIT 38.7 % (42.0-54.0); HEMOGLOBIN 12.5 g/dL (13.5-18.0); LYMPHOCYTES # (AUTO) 0.6 X10^3/uL (1.3-2.9); LYMPHOCYTES % (AUTO) 6.3 % (21.0-51.0); MEAN CORPUSCULAR HEMOGLOBIN 29.9 pg (27.0-34.0); MEAN CORPUSCULAR HGB CONC 32.4 g/dL (33.0-35.0); MEAN CORPUSCULAR VOLUME 92.2 fL (80.0-100.0); MEAN PLATELET VOLUME 8.1 fL (7.4-11.0); MONOCYTES # (AUTO) 0.1 x10^3/uL (0.3-0.8); MONOCYTES % (AUTO) 1.4 % (0.0-13.0); NEUTROPHILS # (AUTO) 8.1 x10^3/uL (2.2-4.8); PLATELET COUNT 178 X10^3/uL (150.0-450.0); RED CELL DISTRIBUTION WIDTH 15.4 % (11.6-16.5); WHITE BLOOD COUNT 8.8 X10^3/uL (3.6-10.0)
[2020-04-27 06:32] LABS: ALANINE AMINOTRANSFERASE 22 Units/L (12-78); ALBUMIN 3.3 g/dL (3.4-5.0); ALKALINE PHOSPHATASE 95 Units/L (46-116); ASPARTATE AMINO TRANSFERASE 20 Units/L (15-37); BLOOD UREA NITROGEN 19 mg/dL (7-18); CALCIUM 8.6 mg/dL (8.5-10.1); CARBON DIOXIDE 36.7 mmol/L (21-32); CHLORIDE 104 mmol/L (98-107); COR CA(FOR HYPOALB) 9.2 mg/dL (8.5-10.1); COR NA(FOR HYPERGLY) 142 mmol/L (136-145); CREATININE 0.58 mg/dL (0.70-1.30); SODIUM 141 mmol/L (136-145); TOTAL PROTEIN 7.6 g/dL (6.4-8.2); eGFR NON BLACK RACES > 60 (>60)
[2020-04-27] MEDS ORDERED: LEXAPRO ONE (08:23)
[2020-04-27] MEDS: FLOMAX PO SCH ×2 (08:37→21:47)
[2020-04-27] MEDS: GLUCOPHAGE XR 24-HR PO SCH ×2 (08:37→21:47)
[2020-04-27] MEDS: COREG TAB 25 MG PO SCH ×2 (08:38→21:45)
[2020-04-27] MEDS: ROBITUSSIN DM PO SCH ×4 (08:38→21:47)
[2020-04-27] MEDS: LEXAPRO PO SCH (08:39)
[2020-04-27] MEDS: TOPAMAX PO SCH ×2 (08:39→21:48)
[2020-04-27] MEDS: ELIQUIS PO SCH ×2 (08:39→21:45)
[2020-04-27 08:40] LABS: PLATELET MORPHOLOGY COMMENT NORMAL (NORMAL)
[2020-04-27] MEDS: MOBIC TAB 15 MG PO SCH (08:40)
[2020-04-27] MEDS: LANOXIN or DIGITEK PO SCH (08:40)
[2020-04-27] MEDS ORDERED: PATIENT'S HOME MEDICATION (Meloxicam 7.5 MG) PO SCH (09:00)
[2020-04-27] MEDS: DUONEB 0.5 MG/3 MG (3 mL) NEB SCH ×4 (09:20→21:40)
[2020-04-27] MEDS: PULMICORT NEB TX 0.5 MG NEB SCH ×2 (09:20→21:40)
[2020-04-27] MEDS ORDERED: FLAGYL TAB 500 MG PO SCH (10:00)
[2020-04-27] MEDS ORDERED: CIPRO TAB 500 MG PO SCH (10:00)
[2020-04-27] MEDS: ZITHROMAX INJ 500 MG VIAL 500 MG in D5W 250 ML IV 250 ML IV SCH (21:48)
[2020-04-27] MEDS: ZOFRAN INJ 4 MG VIAL IVP PRN (23:06)
[2020-04-28 05:10] LABS: ABG BASE EXCESS 10.4 mmol/L (-2.0-2.0)
[2020-04-28 05:12] LABS: ABG HCO3 38.6 mmol/L (22-26)
[2020-04-28 06:30] LABS: BASOPHILS % (AUTO) 0.5 % (0.2-1.0); EOSINOPHILS % (AUTO) 0.3 % (0.9-2.9); HEMATOCRIT 35.4 % (42.0-54.0); HEMOGLOBIN 11.6 g/dL (13.5-18.0); LYMPHOCYTES # (AUTO) 1.9 X10^3/uL (1.3-2.9); LYMPHOCYTES % (AUTO) 20.1 % (21.0-51.0); MEAN CORPUSCULAR HEMOGLOBIN 30.1 pg (27.0-34.0); MEAN CORPUSCULAR HGB CONC 32.7 g/dL (33.0-35.0); MEAN CORPUSCULAR VOLUME 91.8 fL (80.0-100.0); MEAN PLATELET VOLUME 8.1 fL (7.4-11.0); MONOCYTES # (AUTO) 0.7 x10^3/uL (0.3-0.8); MONOCYTES % (AUTO) 7.7 % (0.0-13.0); NEUTROPHILS # (AUTO) 6.6 x10^3/uL (2.2-4.8); NEUTROPHILS % (AUTO) 71.4 % (42.0-75.0); PLATELET COUNT 174 X10^3/uL (150.0-450.0); RED BLOOD COUNT 3.86 X10^6/uL (4.7-6.0); RED CELL DISTRIBUTION WIDTH 15.4 % (11.6-16.5); WHITE BLOOD COUNT 9.2 X10^3/uL (3.6-10.0)
[2020-04-28 06:35] LABS: ALANINE AMINOTRANSFERASE 24 Units/L (12-78); ALBUMIN 3.2 g/dL (3.4-5.0); ALKALINE PHOSPHATASE 78 Units/L (46-116); ASPARTATE AMINO TRANSFERASE 21 Units/L (15-37); BLOOD UREA NITROGEN 16 mg/dL (7-18); CALCIUM 8.5 mg/dL (8.5-10.1); CARBON DIOXIDE 37.3 mmol/L (21-32); CHLORIDE 103 mmol/L (98-107); COR CA(FOR HYPOALB) 9.1 mg/dL (8.5-10.1); CREATININE 0.66 mg/dL (0.70-1.30); SODIUM 142 mmol/L (136-145); eGFR NON BLACK RACES > 60 (>60)
[2020-04-28] MEDS: ZOSYN VIAL 3.375 GRAMS 3.375 G in NS 100 ML IV + SPIKE MINIBAG* 100 ML IV SCH ×3 (06:41→22:39)
[2020-04-28] MEDS: DUONEB 0.5 MG/3 MG (3 mL) NEB SCH ×5 (08:01→21:03)
[2020-04-28] MEDS: PULMICORT NEB TX 0.5 MG NEB SCH ×2 (08:01→21:03)
[2020-04-28] MEDS ORDERED: LEXAPRO ONE (08:32)
[2020-04-28] MEDS: ROBITUSSIN DM PO SCH ×4 (08:52→20:12)
[2020-04-28] MEDS: GLUCOPHAGE XR 24-HR PO SCH ×2 (08:53→20:12)
[2020-04-28] MEDS: LANOXIN or DIGITEK PO SCH (08:53)
[2020-04-28] MEDS: MOBIC TAB 15 MG PO SCH (08:53)
[2020-04-28] MEDS: FLOMAX PO SCH ×2 (08:54→20:12)
[2020-04-28] MEDS: TOPAMAX PO SCH ×2 (08:54→20:13)
[2020-04-28] MEDS: LEXAPRO PO SCH (08:54)
[2020-04-28] MEDS: ELIQUIS PO SCH ×2 (08:55→20:11)
[2020-04-28] MEDS: COREG TAB 25 MG PO SCH ×2 (08:55→20:11)
[2020-04-28 10:33] LABS: ABG BASE EXCESS 8.5 mmol/L (-2.0-2.0)
[2020-04-28 10:34] LABS: ABG ALLEN TEST POS; ABG HCO3 35.8 mmol/L (22-26)
[2020-04-28] MEDS ORDERED: NS 1/2 1000 ML IV 1,000 ML IV ONE (11:53)
[2020-04-28] MEDS: NS 1/2 1000 ML IV 1,000 ML IV SCH (12:15)
[2020-04-28] MEDS: REMERON PO SCH (20:12)
[2020-04-28] MEDS: NORCO 10/325 TAB PO PRN (20:15)
[2020-04-28] MEDS: ZITHROMAX INJ 500 MG VIAL 500 MG in D5W 250 ML IV 250 ML IV SCH (20:16)
[2020-04-29 00:17] LABS: ABG ALLEN TEST POS
[2020-04-29 05:39] LABS: ABG BASE EXCESS 10.4 mmol/L (-2.0-2.0)
[2020-04-29 05:40] LABS: ABG ALLEN TEST POS; ABG HCO3 38.4 mmol/L (22-26)
[2020-04-29] MEDS: ZOSYN VIAL 3.375 GRAMS 3.375 G in NS 100 ML IV + SPIKE MINIBAG* 100 ML IV SCH ×3 (05:58→22:36)
[2020-04-29] MEDS: PULMICORT NEB TX 0.5 MG NEB SCH ×2 (08:04→20:00)
[2020-04-29] MEDS: DUONEB 0.5 MG/3 MG (3 mL) NEB SCH ×4 (08:04→20:00)
[2020-04-29] MEDS ORDERED: LEXAPRO ONE (08:18)
[2020-04-29] MEDS: NS 1/2 1000 ML IV 1,000 ML IV SCH ×2 (08:59→10:23)
[2020-04-29] MEDS ORDERED: PREVNAR 13 IM ONE (09:00)
[2020-04-29] MEDS ORDERED: AFLURIA II4 or FLUARIX II4 IM ONE (09:00)
[2020-04-29] MEDS: MOBIC TAB 15 MG PO SCH (09:00)
[2020-04-29] MEDS: COREG TAB 25 MG PO SCH ×2 (09:02→20:50)
[2020-04-29] MEDS: FLOMAX PO SCH ×2 (09:02→20:50)
[2020-04-29] MEDS: LANOXIN or DIGITEK PO SCH (09:03)
[2020-04-29] MEDS: GLUCOPHAGE XR 24-HR PO SCH ×2 (09:03→20:50)
[2020-04-29] MEDS: ELIQUIS PO SCH ×2 (09:04→20:50)
[2020-04-29] MEDS: ROBITUSSIN DM PO SCH ×4 (09:04→20:50)
[2020-04-29] MEDS: LEXAPRO PO SCH (09:05)
[2020-04-29] MEDS: TOPAMAX PO SCH ×2 (09:06→20:50)
[2020-04-29 09:38] LABS: BASOPHILS # (AUTO) 0.1 X10^3/uL (0.0-0.1); BASOPHILS % (AUTO) 1.2 % (0.2-1.0); EOSINOPHILS # (AUTO) 0.2 x10^3/uL (0.0-0.2); EOSINOPHILS % (AUTO) 3.1 % (0.9-2.9); HEMATOCRIT 35.7 % (42.0-54.0); HEMOGLOBIN 11.6 g/dL (13.5-18.0); LYMPHOCYTES # (AUTO) 2.2 X10^3/uL (1.3-2.9); LYMPHOCYTES % (AUTO) 28.3 % (21.0-51.0); MEAN CORPUSCULAR HEMOGLOBIN 29.9 pg (27.0-34.0); MEAN CORPUSCULAR HGB CONC 32.4 g/dL (33.0-35.0); MEAN PLATELET VOLUME 7.8 fL (7.4-11.0); MONOCYTES # (AUTO) 0.7 x10^3/uL (0.3-0.8); MONOCYTES % (AUTO) 9.6 % (0.0-13.0); NEUTROPHILS # (AUTO) 4.5 x10^3/uL (2.2-4.8); NEUTROPHILS % (AUTO) 57.8 % (42.0-75.0); PLATELET COUNT 161 X10^3/uL (150.0-450.0); RED BLOOD COUNT 3.88 X10^6/uL (4.7-6.0); RED CELL DISTRIBUTION WIDTH 15.3 % (11.6-16.5); WHITE BLOOD COUNT 7.8 X10^3/uL (3.6-10.0)
[2020-04-29 09:48] LABS: ALANINE AMINOTRANSFERASE 24 Units/L (12-78); ALBUMIN 2.9 g/dL (3.4-5.0); ALKALINE PHOSPHATASE 76 Units/L (46-116); ASPARTATE AMINO TRANSFERASE 21 Units/L (15-37); BLOOD UREA NITROGEN 13 mg/dL (7-18); CALCIUM 8.1 mg/dL (8.5-10.1); CARBON DIOXIDE 39.7 mmol/L (21-32); CHLORIDE 106 mmol/L (98-107); CREATININE 0.76 mg/dL (0.70-1.30); SODIUM 144 mmol/L (136-145); TOTAL PROTEIN 6.1 g/dL (6.4-8.2); eGFR NON BLACK RACES > 60 (>60)
[2020-04-29] MEDS: NORCO 10/325 TAB PO PRN ×2 (13:28→21:18)
[2020-04-29] MEDS ORDERED: FLONASE NASAL SPRAY ENOSTRIL SCH (20:00)
[2020-04-29] MEDS: REMERON PO SCH (20:50)
[2020-04-29] MEDS: ZITHROMAX INJ 500 MG VIAL 500 MG in D5W 250 ML IV 250 ML IV SCH (20:50)
[2020-04-29] MEDS: FLONASE NASAL SPRAY ENOSTRIL SCH (20:50)
[2020-04-30] MEDS ORDERED: NS 1/2 1000 ML IV 1,000 ML IV ONE ×2 (01:29→13:53)
[2020-04-30] MEDS: NS 1/2 1000 ML IV 1,000 ML IV SCH ×2 (01:45→13:41)
[2020-04-30] MEDS: NORCO 10/325 TAB PO PRN ×2 (03:13→20:38)
[2020-04-30] MEDS: ZOSYN VIAL 3.375 GRAMS 3.375 G in NS 100 ML IV + SPIKE MINIBAG* 100 ML IV SCH ×3 (05:58→22:27)
[2020-04-30 06:08] LABS: BASOPHILS # (AUTO) 0.1 X10^3/uL (0.0-0.1); BASOPHILS % (AUTO) 0.8 % (0.2-1.0); EOSINOPHILS # (AUTO) 0.3 x10^3/uL (0.0-0.2); EOSINOPHILS % (AUTO) 3.7 % (0.9-2.9); HEMATOCRIT 37.3 % (42.0-54.0); HEMOGLOBIN 12.1 g/dL (13.5-18.0); LYMPHOCYTES # (AUTO) 1.9 X10^3/uL (1.3-2.9); LYMPHOCYTES % (AUTO) 23.2 % (21.0-51.0); MEAN CORPUSCULAR HEMOGLOBIN 29.9 pg (27.0-34.0); MEAN CORPUSCULAR HGB CONC 32.5 g/dL (33.0-35.0); MEAN CORPUSCULAR VOLUME 91.9 fL (80.0-100.0); MEAN PLATELET VOLUME 8.6 fL (7.4-11.0); MONOCYTES # (AUTO) 0.8 x10^3/uL (0.3-0.8); MONOCYTES % (AUTO) 9.8 % (0.0-13.0); NEUTROPHILS # (AUTO) 5.2 x10^3/uL (2.2-4.8); NEUTROPHILS % (AUTO) 62.5 % (42.0-75.0); PLATELET COUNT 178 X10^3/uL (150.0-450.0); RED BLOOD COUNT 4.06 X10^6/uL (4.7-6.0); RED CELL DISTRIBUTION WIDTH 15.5 % (11.6-16.5); WHITE BLOOD COUNT 8.4 X10^3/uL (3.6-10.0)
[2020-04-30 06:36] LABS: ALANINE AMINOTRANSFERASE 26 Units/L (12-78); ALBUMIN 3.3 g/dL (3.4-5.0); ALKALINE PHOSPHATASE 78 Units/L (46-116); ASPARTATE AMINO TRANSFERASE 23 Units/L (15-37); BLOOD UREA NITROGEN 11 mg/dL (7-18); CALCIUM 8.8 mg/dL (8.5-10.1); CARBON DIOXIDE 34.9 mmol/L (21-32); CHLORIDE 106 mmol/L (98-107); COR CA(FOR HYPOALB) 9.4 mg/dL (8.5-10.1); CREATININE 0.65 mg/dL (0.70-1.30); SODIUM 143 mmol/L (136-145); TOTAL PROTEIN 6.8 g/dL (6.4-8.2); eGFR NON BLACK RACES > 60 (>60)
[2020-04-30] MEDS: ZOFRAN INJ 4 MG VIAL IVP PRN (07:29)
[2020-04-30] MEDS ORDERED: LEXAPRO ONE (08:24)
[2020-04-30] MEDS: COREG TAB 25 MG PO SCH ×2 (08:26→20:35)
[2020-04-30] MEDS: ELIQUIS PO SCH ×2 (08:26→20:35)
[2020-04-30] MEDS: GLUCOPHAGE XR 24-HR PO SCH ×2 (08:27→20:36)
[2020-04-30] MEDS: FLOMAX PO SCH ×2 (08:27→20:35)
[2020-04-30] MEDS: LANOXIN or DIGITEK PO SCH (08:27)
[2020-04-30] MEDS: LEXAPRO PO SCH (08:28)
[2020-04-30] MEDS: TOPAMAX PO SCH ×2 (08:29→20:38)
[2020-04-30] MEDS: ROBITUSSIN DM PO SCH ×4 (08:29→20:37)
[2020-04-30] MEDS: MOBIC TAB 15 MG PO SCH (08:29)
[2020-04-30] MEDS: DUONEB 0.5 MG/3 MG (3 mL) NEB SCH ×4 (09:55→21:07)
[2020-04-30] MEDS: PULMICORT NEB TX 0.5 MG NEB SCH ×2 (09:55→21:07)
--- NOTE | 2020-04-30 10:25 | RAD ---
HISTORYPenumonia, COPD, Resp InsufficiencySTUDYCHEST, 1 [id number]/27/2020FINDINGSThe trachea is midline.Dense consolidation within the left greater than right lower lobe. Bilateral pleural effusions. Heart size is enlarged, unchanged. No pneumothorax. No acute osseous abnormality.IMPRESSIONLeft greater than right dense airspace consolidation within the lung bases with layering bilateral pleural effusions.Stable cardiomegaly.Electronically signed by: RUBÉN HOFFMAN (Apr 30, 2020 10:23:48)
[2020-04-30] MEDS: PROTONIX INJ 40 MG VIAL IVP SCH (11:28)
[2020-04-30] MEDS: LEVSIN/MAALOX/LIDOC VISC PO SCH ×4 (11:28→20:36)
[2020-04-30 11:43] LABS: CKMB % 2.7 % (<4); CREATINE KINASE MB 3.3 ng/mL (0-4.0); TROPONIN I 0.02 ng/mL (0-1.5)
[2020-04-30] MEDS: LASIX IVP SCH (16:53)
[2020-04-30] MEDS: COLACE CAP 100 MG PO SCH (20:35)
[2020-04-30] MEDS: FLONASE NASAL SPRAY ENOSTRIL SCH (20:36)
[2020-04-30] MEDS: MILK OF MAGNESIA PO SCH (20:37)
[2020-04-30] MEDS: REMERON PO SCH (20:37)
[2020-04-30] MEDS: ZITHROMAX INJ 500 MG VIAL 500 MG in D5W 250 ML IV 250 ML IV SCH (20:38)
[2020-05-01] MEDS: NORCO 10/325 TAB PO PRN ×2 (01:30→20:33)
[2020-05-01] MEDS: NS 1/2 1000 ML IV 1,000 ML IV SCH ×2 (04:42→20:30)
[2020-05-01] MEDS: ZOSYN VIAL 3.375 GRAMS 3.375 G in NS 100 ML IV + SPIKE MINIBAG* 100 ML IV SCH ×3 (05:28→22:18)
[2020-05-01 06:22] LABS: BASOPHILS % (AUTO) 0.6 % (0.2-1.0); EOSINOPHILS # (AUTO) 0.3 x10^3/uL (0.0-0.2); EOSINOPHILS % (AUTO) 4.6 % (0.9-2.9); HEMOGLOBIN 12.2 g/dL (13.5-18.0); LYMPHOCYTES # (AUTO) 1.8 X10^3/uL (1.3-2.9); LYMPHOCYTES % (AUTO) 25.3 % (21.0-51.0); MEAN CORPUSCULAR HEMOGLOBIN 29.9 pg (27.0-34.0); MEAN CORPUSCULAR VOLUME 90.8 fL (80.0-100.0); MEAN PLATELET VOLUME 8.1 fL (7.4-11.0); MONOCYTES # (AUTO) 0.7 x10^3/uL (0.3-0.8); MONOCYTES % (AUTO) 9.2 % (0.0-13.0); NEUTROPHILS # (AUTO) 4.3 x10^3/uL (2.2-4.8); NEUTROPHILS % (AUTO) 60.3 % (42.0-75.0); PLATELET COUNT 178 X10^3/uL (150.0-450.0); RED BLOOD COUNT 4.08 X10^6/uL (4.7-6.0); RED CELL DISTRIBUTION WIDTH 15.7 % (11.6-16.5); WHITE BLOOD COUNT 7.1 X10^3/uL (3.6-10.0)
[2020-05-01 06:35] LABS: ALANINE AMINOTRANSFERASE 24 Units/L (12-78); ALBUMIN 3.1 g/dL (3.4-5.0); ALKALINE PHOSPHATASE 77 Units/L (46-116); ASPARTATE AMINO TRANSFERASE 20 Units/L (15-37); BLOOD UREA NITROGEN 14 mg/dL (7-18); CALCIUM 8.6 mg/dL (8.5-10.1); CARBON DIOXIDE 35.6 mmol/L (21-32); CHLORIDE 105 mmol/L (98-107); COR CA(FOR HYPOALB) 9.3 mg/dL (8.5-10.1); SODIUM 142 mmol/L (136-145); TOTAL PROTEIN 6.6 g/dL (6.4-8.2); eGFR NON BLACK RACES > 60 (>60)
--- NOTE | 2020-05-01 06:48 | RAD ---
HISTORYPneumoniaSTUDYPortable AP [id number]/31/2020FINDINGSSimilar cardiomegaly, bibasal airspace density with probable pleural effusions. The upper lungs remain relatively clear. There is no evidence for pneumothorax.IMPRESSIONStable chest. Cardiac enlargement and bilateral lower lobe infiltrates/pneumonia with probable pleural effusions.Electronically signed by: EREN CAICEDO (May 01, 2020 06:47:26)
[2020-05-01] MEDS ORDERED: LEXAPRO ONE (08:00)
[2020-05-01] MEDS: ELIQUIS PO SCH ×2 (08:49→20:31)
[2020-05-01] MEDS: COREG TAB 25 MG PO SCH ×2 (08:49→20:31)
[2020-05-01] MEDS: FLOMAX PO SCH ×2 (08:50→20:32)
[2020-05-01] MEDS: GLUCOPHAGE XR 24-HR PO SCH ×2 (08:51→20:32)
[2020-05-01] MEDS: LANOXIN or DIGITEK PO SCH (08:51)
[2020-05-01] MEDS: LASIX IVP SCH ×3 (08:52→18:05)
[2020-05-01] MEDS: LEXAPRO PO SCH (08:53)
[2020-05-01] MEDS: MILK OF MAGNESIA PO SCH ×5 (08:54→21:38)
[2020-05-01] MEDS: MOBIC TAB 15 MG PO SCH (08:55)
[2020-05-01] MEDS: ROBITUSSIN DM PO SCH ×5 (08:56→20:32)
[2020-05-01] MEDS: PROTONIX INJ 40 MG VIAL IVP SCH (08:56)
[2020-05-01] MEDS: TOPAMAX PO SCH ×2 (08:57→20:33)
[2020-05-01] MEDS: DUONEB 0.5 MG/3 MG (3 mL) NEB SCH ×4 (09:45→20:59)
[2020-05-01] MEDS: PULMICORT NEB TX 0.5 MG NEB SCH ×2 (09:45→20:59)
[2020-05-01] MEDS: ZOFRAN INJ 4 MG VIAL IVP PRN ×2 (09:55→18:05)
[2020-05-01 12:14] LABS: ABG HCO3 36.4 mmol/L (22-26)
[2020-05-01] MEDS ORDERED: NS 1/2 1000 ML IV 1,000 ML IV ONE (19:30)
[2020-05-01] MEDS: COLACE CAP 100 MG PO SCH (20:31)
[2020-05-01] MEDS: FLONASE NASAL SPRAY ENOSTRIL SCH (20:32)
[2020-05-01] MEDS: REMERON PO SCH (20:32)
[2020-05-01] MEDS: ZITHROMAX INJ 500 MG VIAL 500 MG in D5W 250 ML IV 250 ML IV SCH (20:33)
[2020-05-02] MEDS: NORCO 10/325 TAB PO PRN (03:00)
[2020-05-02] MEDS: ZOSYN VIAL 3.375 GRAMS 3.375 G in NS 100 ML IV + SPIKE MINIBAG* 100 ML IV SCH (05:38)
--- NOTE | 2020-05-02 05:58 | RAD ---
HISTORYFollow-up pneumoniaSTUDYChest AP [id number]/01/2020FINDINGSThe heart is enlarged. No definite congestive heart failure is noted. Bilateral lower lobe infiltrates are unchanged. The upper lung feliz are clear. Left pleural effusion may well be present.IMPRESSIONNo change cardiomegaly without congestive heart failureNo change bilateral lower lobe lung infiltratesElectronically signed by: WINDY KEN (May 02, 2020 05:57:08)
[2020-05-02 06:38] LABS: BASOPHILS # (AUTO) 0.1 X10^3/uL (0.0-0.1); BASOPHILS % (AUTO) 0.8 % (0.2-1.0); EOSINOPHILS # (AUTO) 0.3 x10^3/uL (0.0-0.2); EOSINOPHILS % (AUTO) 3.9 % (0.9-2.9); HEMATOCRIT 36.4 % (42.0-54.0); HEMOGLOBIN 11.9 g/dL (13.5-18.0); LYMPHOCYTES # (AUTO) 1.8 X10^3/uL (1.3-2.9); LYMPHOCYTES % (AUTO) 24.5 % (21.0-51.0); MEAN CORPUSCULAR HGB CONC 32.6 g/dL (33.0-35.0); MEAN CORPUSCULAR VOLUME 91.9 fL (80.0-100.0); MEAN PLATELET VOLUME 8.4 fL (7.4-11.0); MONOCYTES # (AUTO) 0.7 x10^3/uL (0.3-0.8); MONOCYTES % (AUTO) 8.9 % (0.0-13.0); NEUTROPHILS # (AUTO) 4.6 x10^3/uL (2.2-4.8); NEUTROPHILS % (AUTO) 61.9 % (42.0-75.0); PLATELET COUNT 181 X10^3/uL (150.0-450.0); RED BLOOD COUNT 3.96 X10^6/uL (4.7-6.0); RED CELL DISTRIBUTION WIDTH 15.4 % (11.6-16.5); WHITE BLOOD COUNT 7.4 X10^3/uL (3.6-10.0)
[2020-05-02 06:53] LABS: ALANINE AMINOTRANSFERASE 21 Units/L (12-78); ALKALINE PHOSPHATASE 80 Units/L (46-116); ASPARTATE AMINO TRANSFERASE 19 Units/L (15-37); BLOOD UREA NITROGEN 13 mg/dL (7-18); CALCIUM 8.4 mg/dL (8.5-10.1); CARBON DIOXIDE 35.1 mmol/L (21-32); CHLORIDE 103 mmol/L (98-107); COR CA(FOR HYPOALB) 9.2 mg/dL (8.5-10.1); SODIUM 140 mmol/L (136-145); TOTAL PROTEIN 6.5 g/dL (6.4-8.2); eGFR NON BLACK RACES > 60 (>60)
[2020-05-02] MEDS ORDERED: LEXAPRO ONE (07:18)
[2020-05-02] MEDS: COREG TAB 25 MG PO SCH (08:33)
[2020-05-02] MEDS: FLOMAX PO SCH (08:34)
[2020-05-02] MEDS: ELIQUIS PO SCH (08:34)
[2020-05-02] MEDS: LANOXIN or DIGITEK PO SCH (08:35)
[2020-05-02] MEDS: GLUCOPHAGE XR 24-HR PO SCH (08:35)
[2020-05-02] MEDS: LEXAPRO PO SCH (08:39)
[2020-05-02] MEDS: MILK OF MAGNESIA PO SCH ×2 (08:40)
[2020-05-02] MEDS: MOBIC TAB 15 MG PO SCH (08:40)
[2020-05-02] MEDS: PROTONIX INJ 40 MG VIAL IVP SCH (08:41)
[2020-05-02] MEDS: TOPAMAX PO SCH (08:42)
[2020-05-02] MEDS: ZOFRAN INJ 4 MG VIAL IVP PRN (08:42)
[2020-05-02] MEDS: ROBITUSSIN DM PO SCH (08:42)
[2020-05-02] MEDS: LASIX IVP SCH (08:57)
[2020-05-02] MEDS ORDERED: AVELOX TAB 400 MG PO SCH (09:00)
[2020-05-02] MEDS: PULMICORT NEB TX 0.5 MG NEB SCH (09:55)
[2020-05-02] MEDS: DUONEB 0.5 MG/3 MG (3 mL) NEB SCH ×2 (09:55→13:20)
[2020-05-02] MEDS ORDERED: MOXIFLOXACIN IV SCH (10:00)
[2020-05-02 13:24] VITALS: BP 119/85
[2020-05-02] MEDS: NS 1/2 1000 ML IV 1,000 ML IV SCH (13:33)
== END 2020-05-02 14:35 | disposition home or self-care (01) | DRG 194 ==
LOC: ER 22:05 → MED/SURG 04-27 01:19
PROVIDERS: ADMIT Internal Medicine; ATTEND Obstetrics & Gynecology Obstetrics